=== PATIENT | female | born 1935 | race Caucasian/White ===

== ENCOUNTER → 2017-01-14 | Outpatient (CLI) | payer OTHER, BC ==
[~2017-01-14] MED LIST: ACET-1256 PO; ACYC-57 PO; ACYC5CRE4 TOP; AGG PO; ALBUAER INH; ASPEC81 PO; BNV150 PO; CARB25TA12 PO; CARB50TA3 PO; CHLO4TAB70 PO; CHLORPHENIRAMINE PO; CHOL1000 PO; CLEOCIN T 1%; CLIN1LOT5 TOP; CLRD24 PO; DOCU100C31 PO; DOXY100C76 PO; FAMO20TA11 PO; FAMO40TA6 PO; GABA1CAP5 PO; GLYC1SUP18 RE; HYDR0.2C10 TOP; MELATAB2 PO; METR0.75 TOP; MINO50TA PO; MOME0.1O TOP; MONT1TAB3 PO; MULT-506 PO; OMEP20TA PO; PHENSUP RE; PRMVC TOP; RANI300T2 PO; RETIN A MICRO TOP; SENN-91 PO; TRIA1SPR4 NAE; VITA400C15 PO; ZVRO EXT
[2017-01-14 09:46] LABS: BASO % 0.5 %; BASO ABS # 0.03 K/uL (0-0.2); COMPLETE YES; EOS % 3.1 %; HEMATOCRIT 42.3 % (37-47); LYMPH % 23.3 %; LYMPH ABS # 1.34 K/uL (1.2-3.4); MEAN CELL VOLUME 94.2 fL (80-100); MEAN CORPUSCULAR HEMOGLOBIN 31.8 pg (25-34); MEAN CORPUSCULAR HGB CONC 33.8 g/dl (32-36); NEUT % 66.1 %; PLATELET COUNT 248 K/uL (130-400); RED BLOOD COUNT 4.49 M/uL (4.2-5.4); WHITE BLOOD COUNT 5.75 K/uL (4.8-10.8)
[2017-01-14 09:52] LABS: ALT/SGPT 8 U/L (12-78); BLOOD UREA NITROGEN 13 mg/dl (7-18); BUN/CREATININE RATIO 15.6 (10-20); CALCIUM 8.7 mg/dl (8.5-10.1); CARBON DIOXIDE 30 mmol/L (21-32); CHLORIDE 108 mmol/L (98-107); CHOLESTEROL 217 mg/dl (0-200); CREATININE 0.81 mg/dl (0.60-1.20); GLUCOSE 94 mg/dl (70-99); POTASSIUM 4.2 mmol/L (3.5-5.1); SODIUM 143 mmol/L (136-145); TRIGLYCERIDES 94 mg/dl (0-150); URIC ACID 3.8 mg/dl (2.6-7.2); VERY LOW DENSITY LIPOPROT CALC 19 mg/dl
[2017-01-14 10:01] LABS: ALB/GLOB RATIO 1.1 (0.9-2); ALKALINE PHOSPHATASE 71 U/L (45-117); AST/SGOT 25 U/L (15-37); CHOLESTEROL/HDL RATIO 2.7; HDL CHOLESTEROL 81 mg/dl; LDL CHOLESTEROL CALCULATED 117 mg/dl
[2017-01-14 10:41] LABS: ESTIMATED AVERAGE GLUCOSE 114 mg/dl; HA1C FLAG Normal (Normal)
--- NOTE | 2017-01-19 08:44 | CODING QUERY MEDICAL NECESSITY ---
SUPPORTING DIAGNOSIS NEEDED A supporting diagnosis is required for the test/procedure performed on this patient in order for us to be reimbursed by the patient's insurance. Please provide a supporting diagnosis for the following test/procedure listed below next to the test name along with your signature. *If there is no additional diagnosis for this patient that would support the following test/procedure please document that below next to the test/procedure. Test(s)/Procedure(s) that require a supporting diagnosis: DOS 01/14 * Vitamin B12 DIAGNOSIS: * Hba1c DIAGNOSIS: * TSH DIAGNOSIS: * Lipids DIAGNOSIS: Provider Signature: Date: Thank you Deedee Vazquez Health Information Management Once completed, please kindly fax back to [phone] For questions please call [phone]
== END | disposition home or self-care (01) ==
LOC: C.LAB 08:17
PROVIDERS: ATTEND Family Medicine
DX: R53.82 Chronic fatigue, unspecified (principal); E11.9 Type 2 diabetes mellitus without complications

== ENCOUNTER → 2017-01-26 | Outpatient (CLI) | payer OTHER, BC ==
--- NOTE | 2017-01-26 10:14 | DIAGNOSTIC IMAGING REPORT ---
ULTRASOUND OF THE THYROID GLAND CLINICAL HISTORY: Multinodular goiter. COMPARISON STUDY: Thyroid ultrasound dated 09/26/2013. TECHNIQUE: Real-time, grayscale, and color flow sonography of the thyroid gland is performed utilizing a high-frequency linear transducer. Images are reviewed in the transverse and longitudinal planes. FINDINGS: Right lobe: The right lobe of the thyroid gland is normal in size and slightly heterogeneous in echotexture, measuring 4.7 x 1.9 x 1.5 cm. A subtly hyperechoic nodule in the posterior lower pole measures 0.6 x 0.6 x 0.5 cm (previously measured 0.6 x 0.4 x 0.4 cm). 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 Left lobe: The left lobe of the thyroid gland is normal in size and slightly heterogeneous in echotexture, measuring 4.8 x 2.0 x 1.9 cm. A complex solid and cystic nodule in the mid to lower pole measures 3.5 x 1.7 x 1.7 cm (previously documented as 2 adjacent nodules which measured 2.6 x 1.4 x 1.2 cm and 1.4 x 1.1 x 1.2 cm). Isthmus: The thyroid isthmus is normal in appearance and measures 0.3 cm in AP diameter. IMPRESSION: 1. The thyroid gland is normal in size and slightly heterogeneous in echotexture. 2. Bilateral thyroid nodules have not significantly changed as compared to 09/26/2013. See above. Electronically signed by: Jose Franklin M.D. 01/26/2017 10:12 AM Dictated Date/Time: 01/26/2017 10:09 AM
== END | disposition home or self-care (01) ==
LOC: C.ULTRBC 09:39
PROVIDERS: ATTEND Family Medicine
DX: E04.2 Nontoxic multinodular goiter (principal)

== ENCOUNTER → 2017-01-27 | Day surgery (SDC) | payer OTHER, BC ==
[2017-01-26 08:56] VITALS: BMI 19.0
[~2017-01-27] VITALS: Ht 154.9 cm; Wt 47.7 kg
[~2017-01-27] MED LIST changes: -ASPEC81 PO; -BNV150 PO; -CHLORPHENIRAMINE PO; -CLEOCIN T 1%; -CLRD24 PO; -DOXY100C76 PO; -FAMO20TA11 PO; -HYDR0.2C10 TOP; +LIDOCAINE HCL 2% 2 ML VIAL (20MG/ML) ONE; +MIDAZOLAM HCL 1 MG/ML 2ML VIAL ONE; +ONDANSETRON INJ 2 MG/ML 2 ML VIAL ONE; +PROPOFOL IV EMULSION 10 MG/ML 20 ML VIAL IV ONE; -RANI300T2 PO; -RETIN A MICRO TOP; +SODIUM CHLORIDE 0.9% 500ML 500 ML IV ONE; -VITA400C15 PO; -ZVRO EXT
[2017-01-27 10:04] VITALS: Ht 154.9 cm; Wt 47.7 kg
[2017-01-27 10:21] VITALS: TEMP 36.9
--- NOTE | 2017-01-27 10:29 | Endo History and Physical ---
History & Physical Date of Service: Jan 27, 2017. Chief Complaint: new onset of dysphagia, Hx GERD Referring Physician: Dr. Aguilar History of Present Illness 81 yo CF who presents for EGD secondary to GERD and dysphagia. Past Surgical History Hx Cardiac Surgery: No Hx Internal Defibrillator: No Hx Pacemaker: No Hx Abdominal Surgery: Yes (APPY, COLON TUMOR REMOVAL (BENIGN)) Hx of Implantable Prosthesis: No Hx Post-Op Nausea and Vomiting: No Hx Cancer Surgery: No Hx Thoracic Surgery: No Hx Orthopedic: No Hx Urinary Tract Surgery: No Family History None Social History Smoking Status: Never Smoker Hx Substance Use: No Hx Alcohol Use: No Allergies Coded Allergies: Propoxyphene (Verified Allergy, Severe, ITCHING,RASH,DYSPNEA, 01/26/17) Acetaminophen (Verified Allergy, Unknown, FACIAL SWELLING, PHOTOSENSITIVITY, 01/26/17) TYLENOL PLAIN OKAY - PROBLEMS ONLY WITH TYLENOL SINUS Adhesives (Verified Allergy, Unknown, ADHESIVE TAPE-DERMATITIS, 01/26/17) Bacitracin (Verified Allergy, Unknown, REDNESS, 01/26/17) Latex1 -Allergic Contact Dermititis (Verified Allergy, Unknown, BLISTER, ) Pseudoephedrine (Verified Allergy, Unknown, FACIAL SWELLING, PHOTOSENSITIVITY, 01/26/17) Current Medications Reported Home Medications Medications Dose Route/Sig Max Daily Dose Days Date Category Zovirax (Acyclovir Topical) 5 % Cre 1 Appln TOP QAM PRN 01/26/17 Reported Vitamin D3 (Cholecalciferol) 1,000 Unit Tab 1 Tab PO QAM 01/26/17 Reported Tylenol (Acetaminophen) 500 Mg Tab 500 Mg PO Q6H PRN 01/26/17 Reported Singulair (Montelukast Sodium) 10 Mg Tab 10 Mg PO QAM 01/26/17 Reported Senna S (Sennosides-Docusate Sodium) 1 Tab Tab 1 Tab PO QAM 01/26/17 Reported Proventil Hfa (Albuterol Sulfate) 108 Mcg/Act Aer 1 Puff INH Q4H PRN 01/26/17 Reported Preparation H (Phenylephrine-Shark Liver Oil-) 1 Sup Sup 1 Supp RE DAILY PRN 01/26/17 Reported Premarin (Estrogens, Conjugated) 14 Appln/30 Gm Cr 0.5 Appl TOP 2XWK 01/26/17 Reported Omeprazole 20 Mg Tab 1 Tab PO QAM 01/26/17 Reported Nasacort Allergy 24Hr (Triamcinolone Acetonide (Nasal) 55 Mcg/Act Spr 2 [place] YUDITH DAILY PRN 01/26/17 Reported Multivitamin (Multivitamins) Tab 1 Tab PO QAM 01/26/17 Reported Elocon (Mometasone Furoate) 0.1 % Oin 1 Appln TOP BID 01/26/17 Reported Minocycline Hcl 50 Mg Tab 1 Tab PO DAILY PRN 01/26/17 Reported Metronidazole (Metronidazole (Topical)) 0.75 % Lot 1 Dose TOP BID 01/26/17 Reported Melatonin Maximum Strengt (Melatonin) 5 Mg Tab 2 Tab PO HS 01/26/17 Reported Glycerin Infants & Childr (Glycerin (Laxative)) 1 Gm Sup 1 Supp RE QAM 01/26/17 Reported Neurontin (Gabapentin) 400 Mg Cap 1 Cap PO TID 01/26/17 Reported Pepcid (Famotidine) 40 Mg Tab 40 Mg PO QAM 01/26/17 Reported Docusate Sodium 100 Mg Cap 1 Cap PO BID 01/26/17 Reported Clindamycin Phosphate (Clindamycin Phosphate (Topical) 1 % Lot 1 Appln TOP BID 01/26/17 Reported Chlorpheniramine Maleate 4 Mg Tab 1 Tab PO DAILY PRN 01/26/17 Reported Sinemet Cr 50MG/200MG (Carbidopa/Levodopa) Tabcr 1 Tab PO HS 01/26/17 Reported Sinemet 25MG/100MG (Carbidopa/Levodopa) Tab 1.5 Tab PO QID 01/26/17 Reported Aggrenox 25-200 mg (Dipyridamole/Aspirin) 1 Cap Cap 1 Cap PO BID 01/26/17 Reported Zovirax (Acyclovir) 200 Mg Cap 200 Mg PO QAM 04/07/07 Reported Vital Signs Weight (Kilograms): 47.73 Height (Feet): 5 Height (Inches): 1 Date Time Temp Pulse Resp B/P Pulse Ox O2 Delivery O2 Flow Rate FiO2 01/27/17 10:21 36.9 60 20 119/59 98 Room Air Physical Exam General Appearance: WD/WN, no apparent distress Respiratory/Chest: Auscultation: breath sounds normal Cardiovascular: Heart Auscultation: RRR Abdomen: Bowel Sounds: normal Inspection & Palpation: soft, non-distended, no tenderness, guarding & rebound Assessment and Plan Assessment: 81 yo CF who presents for EGD secondary to GERD and dysphagia. Plan: Proceed with colonoscopy.
--- NOTE | 2017-01-27 10:58 | Discharge Instructions ---
Endoscopy Patient Instructions Date / Procedure(s) Performed Jan 27, 2017. EGD Allergy Information Coded Allergies: Propoxyphene (Verified Allergy, Severe, ITCHING,RASH,DYSPNEA, 01/26/17) Acetaminophen (Verified Allergy, Unknown, FACIAL SWELLING, PHOTOSENSITIVITY, 01/26/17) TYLENOL PLAIN OKAY - PROBLEMS ONLY WITH TYLENOL SINUS Adhesives (Verified Allergy, Unknown, ADHESIVE TAPE-DERMATITIS, 01/26/17) Bacitracin (Verified Allergy, Unknown, REDNESS, 01/26/17) Latex1 -Allergic Contact Dermititis (Verified Allergy, Unknown, BLISTER, ) Pseudoephedrine (Verified Allergy, Unknown, FACIAL SWELLING, PHOTOSENSITIVITY, 01/26/17) Discharge Date / Findings Jan 27, 2017. Hiatal hernia Medication Instructions OK to resume all medications today as prescribed Reported Home Medications Medications Dose Route/Sig Max Daily Dose Days Date Category Zovirax (Acyclovir Topical) 5 % Cre 1 Appln TOP QAM PRN 01/26/17 Reported Vitamin D3 (Cholecalciferol) 1,000 Unit Tab 1 Tab PO QAM 01/26/17 Reported Tylenol (Acetaminophen) 500 Mg Tab 500 Mg PO Q6H PRN 01/26/17 Reported Singulair (Montelukast Sodium) 10 Mg Tab 10 Mg PO QAM 01/26/17 Reported Senna S (Sennosides-Docusate Sodium) 1 Tab Tab 1 Tab PO QAM 01/26/17 Reported Proventil Hfa (Albuterol Sulfate) 108 Mcg/Act Aer 1 Puff INH Q4H PRN 01/26/17 Reported Preparation H (Phenylephrine-Shark Liver Oil-) 1 Sup Sup 1 Supp RE DAILY PRN 01/26/17 Reported Premarin (Estrogens, Conjugated) 14 Appln/30 Gm Cr 0.5 Appl TOP 2XWK 01/26/17 Reported Omeprazole 20 Mg Tab 1 Tab PO QAM 01/26/17 Reported Nasacort Allergy 24Hr (Triamcinolone Acetonide (Nasal) 55 Mcg/Act Spr 2 [place] YUDITH DAILY PRN 01/26/17 Reported Multivitamin (Multivitamins) Tab 1 Tab PO QAM 01/26/17 Reported Elocon (Mometasone Furoate) 0.1 % Oin 1 Appln TOP BID 01/26/17 Reported Minocycline Hcl 50 Mg Tab 1 Tab PO DAILY PRN 01/26/17 Reported Metronidazole (Metronidazole (Topical)) 0.75 % Lot 1 Dose TOP BID 01/26/17 Reported Melatonin Maximum Strengt (Melatonin) 5 Mg Tab 2 Tab PO HS 01/26/17 Reported Glycerin Infants & Childr (Glycerin (Laxative)) 1 Gm Sup 1 Supp RE QAM 01/26/17 Reported Neurontin (Gabapentin) 400 Mg Cap 1 Cap PO TID 01/26/17 Reported Pepcid (Famotidine) 40 Mg Tab 40 Mg PO QAM 01/26/17 Reported Docusate Sodium 100 Mg Cap 1 Cap PO BID 01/26/17 Reported Clindamycin Phosphate (Clindamycin Phosphate (Topical) 1 % Lot 1 Appln TOP BID 01/26/17 Reported Chlorpheniramine Maleate 4 Mg Tab 1 Tab PO DAILY PRN 01/26/17 Reported Sinemet Cr 50MG/200MG (Carbidopa/Levodopa) Tabcr 1 Tab PO HS 01/26/17 Reported Sinemet 25MG/100MG (Carbidopa/Levodopa) Tab 1.5 Tab PO QID 01/26/17 Reported Aggrenox 25-200 mg (Dipyridamole/Aspirin) 1 Cap Cap 1 Cap PO BID 01/26/17 Reported Zovirax (Acyclovir) 200 Mg Cap 200 Mg PO QAM 04/07/07 Reported Provider Instructions Activity Restrictions - No exercising or heavy lifting for 24 hours. - Do not drink alcohol the day of the procedure. - Do not drive a car or operate machinery until the day after the procedure. - Do not make any important decisions or sign important papers in 24 hours after the procedure. Following Day: - Return to full activity which may include returning to work/school. Diet Start your diet with liquids and light foods (jello, soup, juice, toast). Then eat your usual diet if not nauseated. Treatment For Common After Affects For mild abdominal pain, bloating, or excessive gas: - Rest - Eat lightly - Lie on right side Follow-Up Information Follow-up with Dr. Aguilar as scheduled Anesthesia Information What You Should Know You have had a procedure that required some medicine to reduce anxiety and discomfort. This treatment is called moderate sedation. After receiving the treatment, you may be sleepy, but you will be able to breathe on your own. The effects of the treatment may last for several hours. Follow these instructions along with Activity/Diet recommendations noted above: * Do NOT do anything where dizziness or clumsiness would be dangerous. * Rest quietly at home today, then you can be up and about tomorrow. * Have a responsible person stay with you the rest of today. * You may have had an I.V. today. If so, you may take the dressing off later today. Recommendations Call your doctor if: * Trouble breathing * Continuous vomiting for more than 24 hours * Temperature above 101 degrees * Severe abdominal pain or bloating * Pain not relieved by pain medicine ordered * There is increased drainage or redness from any incision * A large amount of rectal bleeding greater than 2-3 tablespoons. (If you had a polyp/s removed or have hemorrhoids, a small amount of blood - from the rectum is to be expected.) * You have any unanswered questions or concerns. IN THE EVENT OF A SERIOUS EMERGENCY, GO TO THE NEAREST EMERGENCY ROOM Your discharge instructions were prepared by provider Edward Isaac. Patient Instructions Signature Page Pauly Burnette Patient (or Guardian) Signature/Date: I have read and understand the instructions given to me by my caregivers. Caregiver/RN/Doctor Signature/Date: The above-named patient and/or guardian has received patient instructions on this date. + Original Patient Signature Page (only) stays with chart. Please make copy for patient.
--- NOTE | 2017-01-27 11:04 | GI REPORT ---
Procedure Date: 01/27/2017 10:34 AM Procedure: Upper GI endoscopy Indications: Dysphagia, Gastro-esophageal reflux disease Medicines: Monitored Anesthesia Care Complications: No immediate complications. Estimated Blood Loss: Estimated blood loss: none. Procedure: Pre-Anesthesia Assessment: - Prior to the procedure, a History and Physical was performed, and patient medications and allergies were reviewed. The patient's tolerance of previous anesthesia was also reviewed. The risks and benefits of the procedure and the sedation options and risks were discussed with the patient. All questions were answered, and informed consent was obtained. Prior Anticoagulants: The patient has taken no previous anticoagulant or antiplatelet agents. ASA Grade Assessment: III - A patient with severe systemic disease. After reviewing the risks and benefits, the patient was deemed in satisfactory condition to undergo the procedure. After obtaining informed consent, the endoscope was passed under direct vision. Throughout the procedure, the patient's blood pressure, pulse, and oxygen saturations were monitored continuously. The On-site loaner was introduced through the mouth, and advanced to the second part of duodenum. The upper GI endoscopy was accomplished without difficulty. The patient tolerated the procedure well. Findings: The esophagus was normal. A small hiatus hernia was present. The examined duodenum was normal. Impression: - Normal esophagus. - Small hiatus hernia. - Normal examined duodenum. - No specimens collected. Recommendation: - Resume previous diet. - Continue present medications. - Return to GI office as previously scheduled. Edward Isaac DO 01/27/2017 11:04:35 AM This report has been signed electronically. Note Initiated On: 01/27/2017 10:34 AM I attest to the content of the Intraoperative Record and orders documented therein, exceptions below
[2017-01-27 11:31] VITALS: BP 146/67; PULSE 64; O2SAT 99
--- NOTE | 2017-01-27 14:50 | Anesthesiology Progress Note ---
Anesthesia Post Op Note Date & Time Jan 27, 2017 at 14:49 Vital Signs Pain Intensity: 0 Vital Signs Past 12 Hours Date Time Temp Pulse Resp B/P Pulse Ox O2 Delivery O2 Flow Rate FiO2 01/27/17 11:31 64 20 146/67 99 Room Air 01/27/17 11:16 66 20 117/83 99 Room Air 01/27/17 11:01 65 20 127/61 99 Room Air 01/27/17 10:21 36.9 60 20 119/59 98 Room Air Notes Mental Status: alert / awake / arousable, participated in evaluation Pt Amnestic to Procedure: Yes Nausea / Vomiting: adequately controlled Pain: adequately controlled Airway Patency, RR, SpO2: stable & adequate BP & HR: stable & adequate Hydration State: stable & adequate Anesthetic Complications: no major complications apparent
== END | disposition home or self-care (01) ==
LOC: C.GI 09:40
PROVIDERS: ATTEND Internal Medicine
DX: R13.10 Dysphagia, unspecified (principal); K21.9 Gastro-esophageal reflux disease without esophagitis

== ENCOUNTER → 2017-05-13 | Outpatient (CLI) | payer OTHER, BC ==
[~2017-05-13] MED LIST changes: -ACYC-57 PO; +ACYC1CAP8 PO; -LIDOCAINE HCL 2% 2 ML VIAL (20MG/ML) ONE; -MIDAZOLAM HCL 1 MG/ML 2ML VIAL ONE; -ONDANSETRON INJ 2 MG/ML 2 ML VIAL ONE; -PROPOFOL IV EMULSION 10 MG/ML 20 ML VIAL IV ONE; -SODIUM CHLORIDE 0.9% 500ML 500 ML IV ONE
--- NOTE | 2017-05-13 13:50 | DIAGNOSTIC IMAGING REPORT ---
MODIFIED BARIUM SWALLOW CLINICAL HISTORY: DYSPHAGIA,PARKINSON COMPARISON STUDY: Modified barium swallow December 29, 2012. Fluoroscopy time: 2.6 minutes. FINDINGS: No definite aspiration was identified. There was equivocal trace tracheal aspiration with thin liquids. There was penetration with thin liquids. There was no aspiration with nectar thick liquids, pudding or crackers with paste. Decreased pharyngeal constriction and elevation was noted. There was moderate to marked esophageal dysmotility. IMPRESSION: 1. No definite tracheal aspiration. Equivocal trace tracheal aspiration with thin liquids. 2. Moderate to marked esophageal dysmotility. 3. Diminished pharyngeal constriction and elevation. 4. Full recommendations by speech pathology to follow. Electronically signed by: Miguel David M.D. 05/13/2017 1:49 PM Dictated Date/Time: 05/13/2017 1:46 PM
--- NOTE | 2017-05-13 14:45 | SWALLOWING EVALUATION ---
HISTORY: This 82 year-old woman, from home, was referred for a VFSS at [facility] secondary to complaints of feeling that something is stuck in her throat. She states that she coughs often with liquids and can not tolerate very hot or cold items. She also states that she feels as if she has pressure on her chest after meals as if a donkey is on her chest. Currently the patient's diet level is regular with thins. She reported some inconsistent information stating that she recently had a GI consult and was 100% normal but also reporting that she had an esophageal dilatation about 20 years ago. Pt. has a past medical history significant for EGD 01/27/17 = normal esophagus, hernia, normal examined duodenum, syncope, GERD, and schatzki's ring. PROCEDURE: The patient was seen in the Radiology Department of [facility] for the VFSS. Cursory examination of the oral cavity revealed adequate dentition. Movement of the articulators was WNL. The patient was seated on a standard chair and was viewed in both the Anterior-Posterior (A-P) and Lateral planes. Volitional phonation exercises completed in the A-P plane revealed bilateral vocal fold movement and vocal intensity within functional limits. In the lateral plane, the patient was given the following barium-infused boluses: 1 tsp thin barium with oral hold 1x, self presented single cup swallow-thin barium 1x, self presented serial cup swallow 1x, self presented single swallow with chin tuck 1x. 1 tsp nectar thick barium with oral hold 1x, self presented single cup swallow- nectar thick barium 1x, self presented serial cup swallows 1x. 1 tsp barium pudding-self presented 1x. Cracker with barium paste 1x. In the A-P view, pt was given 1 tsp barium pudding with esophageal scan. RESULTS: Oral Phase: Pt. had no labial escape of any food or liquid items presented. Pt. demonstrated a cohesive bolus between tongue and palatal seal. Timely and efficient chewing and mashing was observed with all consistencies as well as brisk tongue motion and complete oral clearance. Initiation of pharyngeal swallow began with bolus head in the pyriforms. Overall WFL for oral phase of swallow. Pharyngeal Phase: Soft Palate Elevation was complete for all boluses. Laryngeal elevation was decreased demonstrating partial superior movement of thyroid cartilage with partial approximation of arytenoids to epiglottic base. Anterior Hyoid excursion reduced. Complete epiglottic inversion was observed. Laryngeal Vestibular closure was incomplete and a thin column of air or barium noted in laryngeal vestibule. Tongue base retraction was noted with all consistencies and tongue base made effective contact with posterior pharyngeal wall throughout study. Mild pharyngeal residue was observed resulting in incomplete pharyngeal clearance of all tested items. Overall Mild pharyngeal stage dysphagia. Pt. had penetration of thins and NO witnessed aspiration throughout the study. Pt. completed compensatory strategy of chin tuck which increased airway protection. No coughing, throat clearing or s/s of aspiration were observed. Esophageal Phase: Opening and closing of the UES WFL. FAITH DOCTOR noted moderate-significant esophageal dysmotility with high retrograde motion. Some of the food items appeared to be resting just under the UES after the initial swallow. They then dropped down however reappeared quickly with a larger bolus of previously swallowed food items. SUMMARY/RECOMMENDATIONS: Overall pt. presents with mild pharyngeal stage dysphagia characterized by decreased laryngeal elevation and decreased pharyngeal constriction resulting in penetration of thins. No aspiration observed during this study. Moderate-Severe esophageal dysmotility noted. Recommendin. SLIPPERY regular diet with thin liquids. 2. GERD precautions a. Upright for all intake b. Remain upright for at least 20 min after all intake c. No intake 20 min before bed d. Keep head of bed elevated at least 40 degrees at all times-even sleep e. Alternate consistencies and attempt to follow diet suggestions 3. Follow up with GI regarding results of this study. Results and recommendations were discussed with the pt. at length and written material was provided. Thank you for referral of this patient. Please contact me at if any additional information is needed.
== END | disposition home or self-care (01) ==
LOC: C.RAD 12:34
PROVIDERS: ATTEND Family Medicine
DX: R13.10 Dysphagia, unspecified (principal)

== ENCOUNTER → 2017-06-16 | Outpatient (CLI) | payer OTHER, BC ==
--- NOTE | 2017-06-16 14:14 | MAMMOGRAPHY REPORT ---
BILATERAL DIGITAL SCREENING MAMMOGRAM WITH CAD: 06/16/2017 CLINICAL HISTORY: Routine screening. Patient has no complaints. TECHNIQUE: Bilateral CC and MLO views were obtained. Current study was also evaluated with a Comput er Aided Detection (CAD) system. COMPARISON: Comparison is made to exams dated: 06/15/2016 mammogram, 06/12/2015 mammogram, 06/11/2014 m ammogram, 06/08/2013 mammogram, 06/07/2012 mammogram, and 06/03/2011 mammogram - [facility] enter. BREAST COMPOSITION: The tissue of both breasts is extremely dense, which lowers the sensitivity of m ammography. FINDINGS: There are scattered benign rim calcifications in stable round and punctate microcalcificati ons most numerous in the anterior aspect of each breast. No new suspicious mass, architectural disto rtion or cluster of microcalcifications is seen. IMPRESSION: ACR BI-RADS CATEGORY 1: NEGATIVE There is no mammographic evidence of malignancy. A 1 year screening mammogram is recommended. The pa tient will receive written notification of the results. Approximately 10% of breast cancers are not detected with mammography. A negative mammographic report should not delay biopsy if a clinically suggestive mass is present. Danielle Peacock M.D. ay/:06/16/2017 13:08:38 Silicator: David Colunga M, [facility] letter sent: Normal 1/2 BI-RADS Code: ACR BI-RADS Category 1: Negative
== END | disposition home or self-care (01) ==
LOC: C.MAMM 12:41
PROVIDERS: ATTEND Family Medicine
DX: Z12.31 Encounter for screening mammogram for malignant neoplasm of breast (principal)

== ENCOUNTER 2017-10-10 08:57 | Emergency (ER) | payer OTHER, BC ==
[~2017-10-10] VITALS: Ht 154.9 cm; Wt 43.0 kg
[~2017-10-10 08:57] MED LIST changes: +ACYC-57 PO; -ACYC1CAP8 PO; +GABA-1220 PO; -GABA1CAP5 PO
[2017-10-10 08:59] VITALS: TEMP 36.3; Ht 154.9 cm; Wt 43.0 kg
[2017-10-10 09:09] VITALS: O2SAT 100
[2017-10-10] MEDS ORDERED: LIDOCAINE HCL 2% VISC SOLN 20 ML UDC PO STA (09:18)
[2017-10-10] MEDS ORDERED: ALUMINUM/MAGNESIUM SUSP 30 ML UDC PO STA ×2 (09:18→12:03)
[2017-10-10] MEDS ORDERED: RASA1TAB PO (09:24)
[2017-10-10] MEDS ORDERED: ZOLE5INJ INJ (09:24)
[2017-10-10] MEDS ORDERED: PRM625 PO (09:24)
--- NOTE | 2017-10-10 09:25 | EMERGENCY ROOM VISIT NOTE ---
History Report prepared by Gerri: Georgia Banuelos Under the Supervision of: Dr. Jose Felix M.D. First contact with patient: 09:10 Chief Complaint: SHORTNESS OF BREATH Stated Complaint: BURNING,ACID REFLUX Nursing Triage Summary: pt reports very bad acid reflux started at 0830 . has hx of acid reflux usually takes famotidine and omerprazole. worse than ever before. pain takes pt breath away History of Present Illness The patient is a 82 year old female who presents to the Emergency Room with complaints of burning in her esophagus beginning around 1 hour ago. The patient states that the burning also radiates to her chest. She reports a history of reflux, but states that it has never felt this bad. The patient rates her pain at an 8/10. She states that she only took her regular medications today. She also reports that it is hard to breath because of the burning. The patient denies back, shoulder, and jaw pain, and also denies sweating. She does report having slight nausea. The patient denies a history of heart attacks. Source of History: patient Onset: 1 hour ago Position: other (esophagus) Symptom Intensity: rated at an 8/10 Quality: burning Associated Symptoms: + SOB, + nausea, No diaphoresis, No back pain Review of Systems See HPI for pertinent positives & negatives. A total of 10 systems reviewed and were otherwise negative. Past Medical & Surgical Medical Problems: (1) Acid reflux Family History No pertinent family history Social History Smoking Status: Never Smoker Marital Status: Current/Historical Medications Scheduled Acyclovir (Zovirax), 400 MG PO QAM Carbidopa/Levodopa (Sinemet 25MG/100MG), 2 TAB PO QID Carbidopa/Levodopa (Sinemet Cr 50MG/200MG), 1 TAB PO HS Cholecalciferol (Vitamin D3), 1 TAB PO QAM Clindamycin Phosphate (Topical (Clindamycin Phosphate), 1 APPLN TOP BID Dipyridamole/Aspirin (Aggrenox 25-200 mg), 1 CAP PO BID Docusate Sodium (Docusate Sodium), 1 CAP PO BID Estrogens, Conjugated (Premarin), 0.625 MG PO 2XWK Famotidine (Pepcid), 40 MG PO QAM Gabapentin (Neurontin), 1 CAP PO TID Glycerin (Laxative) (Glycerin Infants & Childr), 1 SUPP RE QAM Melatonin (Melatonin Maximum Strengt), 2 TAB PO HS Metronidazole (Topical) (Metronidazole), 1 DOSE TOP BID Mometasone Furoate (Elocon), 1 APPLN TOP BID Montelukast Sodium (Singulair), 10 MG PO QAM Multivitamin (Multivitamin), 1 TAB PO QAM Omeprazole (Omeprazole), 1 TAB PO QAM Rasagiline Mesylate (Azilect), 0.5 MG PO DAILY Zoledronic Acid (Reclast), 5 MG INJ YEARLY Scheduled PRN Acetaminophen (Tylenol), 500 MG PO Q6H PRN for Pain Acyclovir Topical (Zovirax), 1 APPLN TOP QAM PRN for PRN Albuterol Sulfate (Proventil Hfa), 1 PUFF INH Q4H PRN for SOB/Wheezing Chlorpheniramine Maleate (Chlorpheniramine Maleate), 1 TAB PO DAILY PRN for ALLERGIC REACTION Minocycline Hcl (Minocycline Hcl), 1 TAB PO DAILY PRN for ACNE Phenylephrine-Shark Liver Oil- (Preparation H), 1 SUPP RE DAILY PRN for Constipation Allergies Coded Allergies: Propoxyphene (Verified Allergy, Severe, ITCHING,RASH,DYSPNEA, 10/10/17) Acetaminophen (Verified Allergy, Unknown, FACIAL SWELLING, PHOTOSENSITIVITY, 10/10/17) TYLENOL PLAIN OKAY - PROBLEMS ONLY WITH TYLENOL SINUS Adhesives (Verified Allergy, Unknown, ADHESIVE TAPE-DERMATITIS, 10/10/17) Bacitracin (Verified Allergy, Unknown, REDNESS, 10/10/17) Latex1 -Allergic Contact Dermititis (Verified Allergy, Unknown, BLISTER, 10/10/17) Pseudoephedrine (Verified Allergy, Unknown, FACIAL SWELLING, PHOTOSENSITIVITY, 10/10/17) Physical Exam Vital Signs Date Time Temp Pulse Resp B/P (MAP) Pulse Ox O2 Delivery O2 Flow Rate FiO2 10/10/17 12:14 62 16 96/60 96 Room Air 10/10/17 11:30 62 22 131/57 98 Room Air 10/10/17 11:00 65 20 137/56 98 Room Air 10/10/17 10:30 71 22 156/54 97 Room Air 10/10/17 09:30 63 20 134/57 98 Room Air 10/10/17 09:22 65 10/10/17 09:11 66 18 141/58 100 Room Air 10/10/17 09:09 100 Room Air 10/10/17 08:59 36.3 67 22 144/78 100 Room Air Physical Exam GENERAL: Patient is in no acute distress. HEENT: No acute trauma, normocephalic atraumatic, mucous membranes moist, no nasal congestion, no scleral icterus. NECK: No stridor, no adenopathy, no meningismus, trachea is midline. LUNGS: Clear to auscultation bilaterally, no wheeze, no rhonchi, breath sounds equal. HEART: Without murmurs gallops or rubs, regular rate and rhythm. ABDOMEN: Soft, mildly tender in epigastrium and right upper quadrant, bowel sounds positive, no hernias, no peritonitis. EXTREMITIES: No cyanosis or edema, full range of motion of all the joints without pain or difficulty, no signs for acute trauma. NEUROLOGIC: Oriented x 3, no acute motor or sensory deficits, no focal weakness. SKIN: No rash, no jaundice, no diaphoresis. Medical Decision & Procedures ER Provider Diagnostic Interpretation: Radiology results as stated below per my review and radiologist interpretation: BILIARY ULTRASOUND CLINICAL HISTORY: epigastric pain COMPARISON STUDY: November 18, 2009 FINDINGS: There is slight prominence of the right renal pelvis, but no evidence of calyceal dilatation. The common bile duct measures 5 mm. The gallbladder appears sonographically normal. The pancreas appears sonographically normal. The liver appears sonographically normal. IMPRESSION: Ultrasonographically normal liver, pancreas, and gallbladder. Electronically signed by: Alfie Luciano M.D. 10/10/2017 10:19 AM Dictated Date/Time: 10/10/2017 10:17 AM CHEST ONE VIEW PORTABLE CLINICAL HISTORY: Atypical chest pain COMPARISON STUDY: No previous studies for comparison. FINDINGS: The heart is the upper limits of normal in size. The patient is mildly hyperinflated. There is no failure. There is no focal pulmonary consolidation. There are no pleural effusions. There is minor left basilar atelectasis/scarring.[ IMPRESSION: No active disease in the chest. Electronically signed by: Alfie Luciano M.D. 10/10/2017 10:11 AM Dictated Date/Time: 10/10/2017 10:10 AM Laboratory Results 10/10/17 09:10 10/10/17 09:10 Test 10/10/17 09:10 10/10/17 11:12 Red Blood Count 4.75 M/uL (4.2-5.4) Mean Corpuscular Volume 94.7 fL (80-100) Mean Corpuscular Hemoglobin 32.0 pg (25-34) Mean Corpuscular Hemoglobin Concent 33.8 g/dl (32-36) RDW Standard Deviation 44.7 fL (36.4-46.3) RDW Coefficient of Variation 12.9 % (11.5-14.5) Mean Platelet Volume 11.0 fL (7.4-10.4) Prothrombin Time 10.8 SECONDS (9.0-12.0) Prothromb Time International Ratio 1.0 (0.9-1.1) Activated Partial Thromboplast Time 25.3 SECONDS (21.0-31.0) Partial Thromboplastin Ratio 1.0 Anion Gap 9.0 mmol/L (3-11) Est Creatinine Clear Calc Drug Dose 35.2 ml/min Estimated GFR () 74.5 Estimated GFR (Non- 64.3 BUN/Creatinine Ratio 24.6 (10-20) Calcium Level 8.6 mg/dl (8.5-10.1) Total Bilirubin 0.8 mg/dl (0.2-1) Aspartate Amino Transf (AST/SGOT) 34 U/L (15-37) Alanine Aminotransferase (ALT/SGPT) 11 U/L (12-78) Alkaline Phosphatase 76 U/L (45-117) Total Creatine Kinase 343 U/L (26-192) Creatine Kinase MB 6.4 ng/ml (0.5-3.6) Creatine Kinase MB Ratio 1.9 (0-3.0) Total Protein 6.9 gm/dl (6.4-8.2) Albumin 3.5 gm/dl (3.4-5.0) Globulin 3.4 gm/dl (2.5-4.0) Albumin/Globulin Ratio 1.0 (0.9-2) Lipase 176 U/L (73-393) Bedside Troponin I < 0.030 ng/ml (0-0.045) Laboratory results reviewed by me. Medications Administered Medications (Trade) Dose Ordered Sig/Ramona Route Start Time Stop Time Status Last Admin Dose Admin Lidocaine HCl (Viscous Lidocaine 2% Soln) 10 ml NOW STAT PO 10/10/17 09:18 12/24/17 09:20 DC 10/10/17 09:27 10 ML Al Hydroxide/Mg Hydroxide (Maalox Susp) 30 ml NOW STAT PO 10/10/17 09:18 10/10/17 09:20 DC 10/10/17 09:27 30 ML Ranitidine HCl (zANTac TAB) 150 mg NOW STAT PO 10/10/17 10:39 10/10/17 10:41 DC 10/10/17 10:39 150 MG Al Hydroxide/Mg Hydroxide (Maalox Susp) 30 ml NOW STAT PO 10/10/17 12:03 10/10/17 12:04 DC 10/10/17 12:14 30 ML ECG Indication: abdominal pain (epigastric pain) Rate (beats per minute): 62 Rhythm: normal sinus Findings: no acute ischemic change, no ectopy ED Course 15: The patient was evaluated in room B6. A complete history and physical exam was performed. 0918: Ordered Maalox Susp 30 ml PO, Lidocaine HCl 10 ml PO. 1039: Ordered Ranitidine HCl 150 mg PO. 1054: I updated the patient. She is still having some burning but does feel better. 1203: Ordered Maalox Susp 30 ml PO. 1205: Reevaluated the patient. Discussed results and discharge instructions: She verbalized understanding and agreement. I did offer the patient a hospitalist stay but she stated that she would rather go home. The patient is ready for discharge. Medical Decision The patient is a 82 year old female who presents to the ED with complaints of esophageal burning. Differential diagnoses considered include reflux, pancreatitis, biliary colic, angina, myocardial infarction, aortic dissection, and pneumonia. There is no leukocytosis or worrisome anemia. No significant electrolyte abnormality, kidney failure or hepatitis. No evidence for pancreatitis. EKG shows a normal sinus rhythm, no evidence for acute ischemia. Cardiac enzyme testing 2 does not suggest acute cardiac injury. Chest x-ray does not show pneumonia, mediastinal widening or pneumothorax. Gallbladder ultrasound does not show evidence for gallstones or acute cholecystitis. The patient presents with what she thought maybe heartburn. She was given a GI cocktail and oral Zantac. She had some relief with this. As she felt somewhat better, she asked for another dose of Maalox, this was given. The patient does not have any evidence for acute cardiac injury. She has no known cardiac disease. She has not had exertional chest pain or dyspnea lately. Her pain today feels like her reflux and has improved with reflux treatment. I did talk to the patient about a hospital stay, she feels she can go home and does not want to stay in the hospital. She has agreed to return for any worsening symptoms. She will add Maalox to her reflux regimen. Medication Reconcilliation Current Medication List: was personally reviewed by me Blood Pressure Screening Patient's blood pressure: Elevated blood pressure Blood pressure disposition: Elevated BP felt to be situational Impression Primary Impression: Precordial chest pain Scribe Attestation The scribe's documentation has been prepared under my direction and personally reviewed by me in its entirety. I confirm that the note above accurately reflects all work, treatment, procedures, and medical decision making performed by me. Departure Information Dispostion Home / Self-Care Referrals Arsen Aguilar M.D. (PCP) Forms HOME CARE DOCUMENTATION FORM, IMPORTANT VISIT INFORMATION Patient Instructions My [facility] Additional Instructions keep on your reflux meds add maalox 2 tablespoons before meals and as needed for reflux symptoms return the the ER for worsening pain or exertional pain as we discussed heart testing today was all ok
[2017-10-10 09:31] LABS: HEMOGLOBIN 15.2 g/dL (12.0-16.0); MEAN CELL VOLUME 94.7 fL (80-100); MEAN CORPUSCULAR HGB CONC 33.8 g/dl (32-36); PLATELET COUNT 253 K/uL (130-400); RED CELL DISTRIBUTION WIDTH CV 12.9 % (11.5-14.5); RED CELL DISTRIBUTION WIDTH SD 44.7 fL (36.4-46.3); WHITE BLOOD COUNT 6.47 K/uL (4.8-10.8)
[2017-10-10 09:40] LABS: PTT PATIENT 25.3 SECONDS (21.0-31.0)
[2017-10-10 09:41] LABS: ALBUMIN 3.5 gm/dl (3.4-5.0); CALCIUM 8.6 mg/dl (8.5-10.1); CREATININE 0.85 mg/dl (0.60-1.20)
[2017-10-10 09:46] LABS: CKMB 6.4 ng/ml (0.5-3.6); TOTAL PROTEIN 6.9 gm/dl (6.4-8.2)
--- NOTE | 2017-10-10 10:12 | DIAGNOSTIC IMAGING REPORT ---
CHEST ONE VIEW PORTABLE CLINICAL HISTORY: Atypical chest pain COMPARISON STUDY: No previous studies for comparison. FINDINGS: The heart is the upper limits of normal in size. The patient is mildly hyperinflated. There is no failure. There is no focal pulmonary consolidation. There are no pleural effusions. There is minor left basilar atelectasis/scarring.[ IMPRESSION: No active disease in the chest. Electronically signed by: Alfie Luciano M.D. 10/10/2017 10:11 AM Dictated Date/Time: 10/10/2017 10:10 AM
--- NOTE | 2017-10-10 10:20 | DIAGNOSTIC IMAGING REPORT ---
BILIARY ULTRASOUND CLINICAL HISTORY: epigastric pain COMPARISON STUDY: November 18, 2009 FINDINGS: There is slight prominence of the right renal pelvis, but no evidence of calyceal dilatation. The common bile duct measures 5 mm. The gallbladder appears sonographically normal. The pancreas appears sonographically normal. The liver appears sonographically normal. IMPRESSION: Ultrasonographically normal liver, pancreas, and gallbladder. Electronically signed by: Alfie Luciano M.D. 10/10/2017 10:19 AM Dictated Date/Time: 10/10/2017 10:17 AM
[2017-10-10] MEDS ORDERED: RANITIDINE HCL 150 MG TAB PO STA (10:39)
[2017-10-10 12:14] VITALS: BP 96/60; PULSE 62; O2SAT 96
[2018-03-30] MEDS ORDERED: DENO60SO IM (13:48)
== END 2017-10-10 12:20 | disposition home or self-care (01) ==
LOC: C.EDB 08:58
DX: R07.2 Precordial pain (principal); K21.9 Gastro-esophageal reflux disease without esophagitis; Z79.899 Other long term (current) drug therapy

== ENCOUNTER → 2017-12-14 | Outpatient (CLI) | payer OTHER, BC ==
[~2017-12-14] MED LIST changes: +PRM625 PO; -PRMVC TOP; +RASA1TAB PO; -SENN-91 PO; -TRIA1SPR4 NAE; +ZOLE5INJ INJ
[2017-12-14 12:17] LABS: BASO % 0.5 %; BASO ABS # 0.03 K/uL (0-0.2); EOS % 2.5 %; EOS ABS # 0.16 K/uL (0-0.5); HEMATOCRIT 44.1 % (37-47); HEMOGLOBIN 14.6 g/dL (12.0-16.0); IG# 0.01 K/uL (0.00-0.02); LYMPH % 23.3 %; MEAN CELL VOLUME 96.3 fL (80-100); MEAN CORPUSCULAR HEMOGLOBIN 31.9 pg (25-34); MEAN CORPUSCULAR HGB CONC 33.1 g/dl (32-36); MEAN PLATELET VOLUME 11.1 fL (7.4-10.4); MONO % 8.1 %; MONO ABS # 0.52 K/uL (0.11-0.59); NEUT % 65.4 %; NEUT ABS # 4.22 K/uL (1.4-6.5); PLATELET COUNT 258 K/uL (130-400); RED CELL DISTRIBUTION WIDTH CV 13.1 % (11.5-14.5); RED CELL DISTRIBUTION WIDTH SD 45.6 fL (36.4-46.3); WHITE BLOOD COUNT 6.44 K/uL (4.8-10.8)
[2017-12-14 12:28] LABS: ALBUMIN 3.8 gm/dl (3.4-5.0); ALT/SGPT 14 U/L (12-78); AST/SGOT 23 U/L (15-37); BLOOD UREA NITROGEN 11 mg/dl (7-18); CARBON DIOXIDE 31 mmol/L (21-32); CHOLESTEROL 212 mg/dl (0-200); CREATININE 0.74 mg/dl (0.60-1.20); GLUCOSE 84 mg/dl (70-99); POTASSIUM 4.2 mmol/L (3.5-5.1); SODIUM 140 mmol/L (136-145); URIC ACID 3.6 mg/dl (2.6-7.2)
[2017-12-14 12:36] LABS: ALKALINE PHOSPHATASE 68 U/L (45-117); LDL CHOLESTEROL CALCULATED 97 mg/dl; TOTAL PROTEIN 7.2 gm/dl (6.4-8.2); TRANSFERRIN 256 mg/dl (200-360)
[2017-12-14 13:28] LABS: HEMOGLOBIN A1C 5.4 % (4.5-5.6)
== END | disposition home or self-care (01) ==
LOC: C.LAB 10:26
PROVIDERS: ATTEND Family Medicine
DX: E88.81 Metabolic syndrome and other insulin resistance (principal); E55.9 Vitamin D deficiency, unspecified; D51.9 Vitamin B12 deficiency anemia, unspecified; E78.9 Disorder of lipoprotein metabolism, unspecified; R53.83 Other fatigue

== ENCOUNTER → 2017-12-27 | Outpatient (CLI) | payer OTHER, BC ==
--- NOTE | 2017-12-27 13:52 | DIAGNOSTIC IMAGING REPORT ---
ULTRASOUND OF THE CAROTID ARTERIES CLINICAL HISTORY: Dizziness. COMPARISON STUDY: MR angiogram of the neck dated 02/05/2012. Thyroid ultrasound dated 01/26/2017. TECHNIQUE: Real-time, grayscale, and color Doppler sonography of the carotid arteries is performed. Images are reviewed in the transverse and longitudinal planes. FINDINGS: Blood pressure in the right arm measures 120/60 and blood pressure in the left arm measures 11/10/1958. The carotid arteries are patent bilaterally and demonstrate antegrade flow. There is no significant atherosclerotic plaque identified. Normal doppler arterial waveforms are seen throughout. Velocity measurements are listed below. Common carotid peak systolic velocity (cm/sec): RIGHT: 115 LEFT: 105 ICA proximal peak systolic velocity (cm/sec): RIGHT: 98 LEFT: 79 ICA mid peak systolic velocity (cm/sec): RIGHT: 111 LEFT: 90 ICA distal peak systolic velocity (cm/sec): RIGHT: 123 LEFT: 94 ICA/CC peak systolic ratio: RIGHT: 1.0 LEFT: 0.9 Antegrade flow was shown in the vertebral arteries. The external carotid arteries are patent. A 3.4 cm nodule is incidentally noted in the left thyroid lobe, and is unchanged from previous. IMPRESSION: 1. There is no sonographic evidence of hemodynamically significant stenosis in the right or left carotid arterial system. 2. Antegrade flow is shown in the vertebral arteries. Electronically signed by: Jose Franklin M.D. 12/27/2017 1:51 PM Dictated Date/Time: 12/27/2017 1:49 PM
== END | disposition home or self-care (01) ==
LOC: C.ULTR 13:00
PROVIDERS: ATTEND Family Medicine
DX: I65.09 Occlusion and stenosis of unspecified vertebral artery (principal); R42 Dizziness and giddiness

== ENCOUNTER → 2018-02-14 | Outpatient (CLI) | payer OTHER, BC ==
--- NOTE | 2018-02-14 13:17 | DIAGNOSTIC IMAGING REPORT ---
R FOOT MIN 3 VIEWS ROUTINE, L FOOT MIN 3 VIEWS ROUTINE HISTORY: 82 years-old Female MID SOLE PAIN AND SWELLING acute right foot pain and swelling COMPARISON: None available TECHNIQUE: 2 views of the bilateral feet for a total 4 images FINDINGS: RIGHT: Moderate joint space narrowing with subchondral sclerosis and marginal spurring involves the first MTP joint with mild associated soft tissue prominence. The bones are mildly demineralized. There is mild cortical thickening involving the lateral diaphyseal portion of the fourth metacarpal which may reflect healed posttraumatic changes. Pes planus deformity with moderate enthesophyte of the plantar calcaneus. Peripheral vascular disease. No opaque foreign body. LEFT: Mild degenerative changes about the first MTP joint with associated soft tissue prominence. Bones are mildly demineralized. No acute fracture or dislocation. Mild pes planus deformity with peripheral vascular disease. IMPRESSION: 1. No acute fracture or dislocation. 2. Mildly demineralized appearance of the bones bilaterally with degenerative changes as above, most pronounced within the right first MTP joint. 3. Peripheral vascular disease. The above report was generated using voice recognition software. It may contain grammatical, syntax or spelling errors. Electronically signed by: Yury Fang M.D. 02/14/2018 1:15 PM Dictated Date/Time: 02/14/2018 1:05 PM
== END | disposition home or self-care (01) ==
LOC: C.RAD 12:09
PROVIDERS: ATTEND Family Medicine
DX: M79.671 Pain in right foot (principal); M79.672 Pain in left foot; M79.89 Other specified soft tissue disorders; I73.9 Peripheral vascular disease, unspecified

== ENCOUNTER → 2018-05-24 | Day surgery (SDC) | payer OTHER, BC ==
[2018-05-12 14:31] VITALS: Ht 154.9 cm; Wt 44.5 kg
[~2018-05-24] VITALS: Ht 154.9 cm; Wt 44.5 kg
[~2018-05-24] MED LIST changes: +500ML BSS 0.3ML EPI 1:1000PF IRRIG ONE; +ACETAMINOPHEN 325 MG TAB PO PRN; +AMVISC PLUS 0.8ML SYRINGE INT OCU ONE; +ATROPINE SULFATE 0.1 MG/ML 5ML SYR IV PRN; +BSS FLUSH ONE; +DENO60SO IM; +EpINEphrine INJ 1MG/ML AMP 1 MG/ML AMP ONE; +LACTATED RINGER'S 1000ML 500 ML IV SCH; +LIDOCAINE 3.5% OPH GEL PER APPLICATION CHARGE ONE; +LIDOCAINE HCL 1% MPF 2 ML VIAL ONE; +MIDAZOLAM HCL 1 MG/ML 2ML VIAL ONE; +ONDANSETRON INJ 2 MG/ML 2 ML VIAL IV PRN; +POVIDONE-IODINE OP SOLN 30 ML BTL ONE; +PROPARACAINE 0.5% OP SOLN PER DROP CHARGE OPL SCH; +TOBRAMYCIN/DEXAMETHASONE OPH OINT PER APPLN CHARGE ONE; -ZOLE5INJ INJ
[2018-05-24] MEDS: PHENYLEPHRINE HCL 2.5% OP SOLN PER DROP CHARGE OPL SCH ×2 (08:20→08:25)
[2018-05-24] MEDS: TROPICAMIDE 1% OP SOLN PER DROP CHARGE OPL SCH ×2 (08:21→08:26)
[2018-05-24] MEDS: CYCLOPENTOLATE HCL 1% OP SOLN PER DROP CHARGE OPL SCH ×2 (08:22→08:27)
[2018-05-24] MEDS: KETOROLAC 0.5% OP SOLN PER DROP CHARGE OPL SCH ×2 (08:23→08:28)
[2018-05-24] MEDS: GATIFLOXACIN OP SOLN PER DROP CHARGE OPL SCH ×2 (08:24→08:34)
--- NOTE | 2018-05-24 08:34 | History & Physical Bridge - SC ---
H&P Re-Evaluation Bridge Note: I have examined the patient, reviewed the History & Physical and in the interval since the performance of the History & Physical I have noted the following changes of clinical significance: Diagnosis: Left Cataract Procedure: Left Cataract Removal with Lens Implant No changes noted
--- NOTE | 2018-05-24 09:18 | Discharge Instructions-SurgCtr ---
Discharge Instructions Date of Service May 24, 2018. Visit Reason for Visit: Cataract Left Eye Discharge Discharge Diagnosis / Problem: cataract Discharge Goals Goal(s): Improve function Activity Recommendations Activity Limitations: per Instructions/Follow-up section Anesthesia . Post Anesthesia Instructions: If you have had General Anesthesia or IV Sedation: * Do not drive today. * Resume driving when surgeon permits. * Do not make important decisions or sign legal documents today. * Call surgeon for: 1. Temperature elevations greater than 101 degrees F. 2. Uncontrollable pain. 3. Excessive bleeding. 4. Persistent nausea and vomiting. 5. Medication intolerance (nausea, vomiting or rash). * For nausea and vomiting use only clear liquids such as: tea, soda, bouillon until nausea subsides, then gradually increase diet as tolerated. * If you have any concerns or questions, call your surgeon's office. If physician is unavailable and it is an emergency, call 911 or go to the nearest emergency room. . Diet Recommendations Home Diet: resume previous diet Procedures Procedures Performed: Left Cataract Phacoemulsification With Intraocular Lens Implant Pending Studies Studies pending at discharge: no Medical Emergencies . Who to Call and When: Medical Emergencies: If at any time you feel your situation is an emergency, please call 911 immediately. . Non-Emergent Contact Non-Emergency issues call your: [employer] . . "Provider Documentation" section prepared by Juan Echevarria. .
--- NOTE | 2018-05-24 09:18 | [facility] Operative Report ---
Operative Report Date of Service May 24, 2018. Operative Report 1. PREOPERATIVE DIAGNOSIS: Cataract of the left eye. 2. POSTOPERATIVE DIAGNOSIS: Same. 3. PROCEDURE: Phacoemulsification with intraocular lens implantation of the left eye. SURGEON: Dr. Juan Echevarria. ANESTHESIA: Topical Lidocaine gel, 1% Non- Preserved intracameral Lidocaine, and monitored intravenous sedation. INDICATIONS FOR THE PROCEDURE: The patient is a 83 - year-old female with a history of cataract of the left eye causing significant visual impairment. The details of the proposed procedure were explained to the patient who asked appropriate questions and following discussion of all risks, benefits and alternatives agreed to have the procedure done. 4. OPERATION AND FINDINGS: DESCRIPTION OF PROCEDURE: After informed consent was obtained, the patient was brought to the Operating Room at the [facility]. The patient was placed in a supine position and then the left eye was prepped and draped in the usual sterile fashion for intraocular surgery. A drop of topical Lidocaine gel was placed in the operative eye. A wire lid speculum was then placed in the fornices. A corneal paracentesis was then created temporally. The Non-Preserved Lidocaine was then instilled into the anterior chamber. The anterior chamber was then pressurized with viscoelastic. A 2.0 mm clear corneal incision was then created temporally. A cystotome was inserted into the anterior chamber and used to create a tear in the anterior lens capsule. This capsular tear was then used to create a small flap and the flap was dragged in a counterclockwise direction in order to create a continuous curvilinear capsulorrhexis. Hydrodissection was accomplished with balanced salt solution. Phacoemulsification of the lens nucleus was then performed in a standard [id number] technique. The phaco time was 22 seconds with an average power of 15 %. The remaining cortical material was removed using irrigation aspiration. The capsular bag was then filled with viscoelastic. A [employer]ch [employer] Lomb MI60L +21.5 diopters lens was then loaded into the injector and injected into the capsular bag. The remaining viscoelastic was removed with the irrigation aspiration handpiece. The wound was hydrated and then checked and found to be watertight. The intraocular pressure was checked and found to be adequate. The wire lid speculum was removed and the patient's face was cleaned and dried. TobraDex ointment was placed in the inferior fornix. The patient was discharged to the Recovery Room having tolerated the procedure well. There were no complications. The patient will be seen tomorrow in the office for follow-up. I attest to the content of the Intraoperative Record and any orders documented therein. Any exceptions are noted below.
[2018-05-24 09:23] VITALS: TEMP 36.5
[2018-05-24 09:46] VITALS: BP 124/63; PULSE 63; O2SAT 98
--- NOTE | 2018-05-24 09:53 | Anesthesia Progress Nt - [facility] ---
Anesthesia Post Op Note Date & Time May 24, 2018 at 09:53 Vital Signs Pain Intensity: 0 Vital Signs Past 12 Hours Date Time Temp Pulse Resp B/P (MAP) Pulse Ox O2 Delivery O2 Flow Rate FiO2 05/24/18 09:46 63 18 124/63 (83) 98 Room Air 05/24/18 09:23 36.5 66 18 114/64 (81) 98 Room Air 05/24/18 08:11 36.4 63 20 129/78 (95) 97 Room Air Notes Mental Status: alert / awake / arousable, participated in evaluation Pt Amnestic to Procedure: Yes Nausea / Vomiting: adequately controlled Pain: adequately controlled Airway Patency, RR, SpO2: stable & adequate BP & HR: stable & adequate Hydration State: stable & adequate Anesthetic Complications: no major complications apparent
== END | disposition home or self-care (01) ==
LOC: X.SURG 07:43
PROVIDERS: ATTEND Ophthalmology
DX: H26.9 Unspecified cataract (principal); J45.909 Unspecified asthma, uncomplicated; Z86.73 Personal history of transient ischemic attack (TIA), and cerebral infarction without residual deficits; G20 Parkinson's disease; Z98.41 Cataract extraction status, right eye; Z79.899 Other long term (current) drug therapy

== ENCOUNTER 2019-06-23 20:15 | Inpatient (IN) ==
[2019-06-23] MEDS ORDERED: SODIUM CHLORIDE 0.9% 1000ML 1,000 ML IV SCH (20:45)
--- NOTE | 2019-06-23 21:13 | XRay Report ---
SINGLE VIEW CHEST CLINICAL HISTORY: Generalized weakness. FINDINGS: An AP, portable, upright chest radiograph is compared to study dated 10/10/2017. The examin ation is degraded by portable technique and patient rotation. The cardiomediastinal silhouette is u nremarkable. The lungs and pleural spaces are clear. No pneumothorax is seen. The skeletal structures are osteopenic. The bony thorax is grossly intact. IMPRESSION: No active disease in the chest. Electronically signed by: Jose Franklin M.D. 06/23/2019 9:11 PM
[2019-06-23 21:19] LABS: INR 1.1 (0.9-1.1)
[2019-06-23 21:26] LABS: Albumin Level 3.2 gm/dl (3.4-5.0); Calcium 8.1 mg/dl (8.5-10.1); Creatinine Clr Calc Pharmacy 13.5 ml/min; Est GFR (African American) 22.4; Est GFR (Non-African American) 19.3; Magnesium 3.3 mg/dl (1.8-2.4); Potassium 3.4 mmol/L (3.5-5.1)
[2019-06-23 21:41] LABS: Hematocrit (blood only) 41.5 % (37-47); Hemoglobin 14.8 g/dL (12.0-16.0); Mean Corpuscular Hgb Conc 35.7 g/dL (32-36); Mean Corpuscular Volume 88.7 fL (80-100); RDW Coefficient of Variation 14.3 % (11.5-14.5); RDW Standard Deviation 46.6 fL (36.4-46.3); Red Blood Count 4.68 M/uL (4.2-5.4); White Blood Count 2.23 K/uL (4.8-10.8)
[2019-06-23 21:43] LABS: Albumin Globulin Ratio 0.9 (0.9-2); Bilirubin,Total 0.8 mg/dl (0.2-1); Globulin 3.7 gm/dl (2.5-4.0); Total Protein 6.9 gm/dl (6.4-8.2); Troponin I 0.047 ng/ml (0-0.045)
[2019-06-23 21:52] LABS: Platelet Count 43 K/uL (130-400)
[2019-06-23] MEDS ORDERED: CEFEPIME 2,000 MG/20 ML VIAL IV STA (21:52)
[2019-06-23 21:53] LABS: Basophils # (auto) 0.01 K/uL (0-0.2); Basophils % (auto) 0.4 %; Echinocytes 1+; Eosinophils # (auto) 0.01 K/uL (0-0.5); Eosinophils % (auto) 0.4 %; Immature Granulocytes # (auto) 0.02 K/uL (0.00-0.02); Immature Granulocytes % (auto) 0.9 %; Lymphocytes # (auto) 0.28 K/uL (1.2-3.4); Lymphocytes % (auto) 12.6 %; Monocytes # (auto) 0.08 K/uL (0.11-0.59); Monocytes % (auto) 3.6 %; Neutrophils # (auto) 1.83 K/uL (1.4-6.5); Neutrophils % (auto) 82.1 %; Platelet Estimate Decreased (Normal); Tear Drop Cells 1+
[2019-06-23] MEDS ORDERED: SODIUM CHLORIDE 0.9% 1000ML 1,000 ML IV ONE (22:02)
[2019-06-23 22:48] LABS: Appearance Urine Cloudy (Clear); Bacteria Urine Automated Negative (Negative); Bilirubin Urine Negative (Negative); Blood Urine 1+ (Negative); Color Urine Yellow; Epithelial Cell Urine Auto >30 /lpf (0-5); Glucose Urine UA Negative (Negative); Ketones Urine Negative (Negative); Leukocyte Esterase Urine Negative (Negative); Nitrite Urine Negative (Negative); Protein Urine 1+ (Negative); RBC Urine Automated 0-4 /hpf (0-4); Specific Gravity Urine 1.022 (1.000-1.030); Urobilinogen Urine Negative (Negative)
--- NOTE | 2019-06-23 23:30 | Ultrasound Report ---
ULTRASOUND BILATERAL LOWER EXTREMITY VENOUS CLINICAL HISTORY: Leg pain. COMPARISON STUDY: No priors. TECHNIQUE: Real-time, grayscale, and color Doppler sonography of the deep veins of the right and left lower extremity was performed from the inguinal crease to the calf. Compression and augmentation wer e utilized. FINDINGS: There is no sonographic evidence of deep venous thrombosis identified in the right or left lower extremity. The common femoral, superficial femoral, and popliteal veins are patent and normally compressible bilaterally. The greater saphenous vein and the profunda femoris vein at the junction w ith the common femoral vein are clear in both legs. The visualized calf veins are patent bilaterally. IMPRESSION: There is no sonographic evidence of deep venous thrombosis identified in the right or lef t lower extremity. Electronically signed by: Jose Franklin M.D. 06/23/2019 11:29 PM
--- NOTE | 2019-06-24 00:32 | History & Physical Report ---
Date of Service June 24, 2019 Assessment & Plan (1) Anaplasmosis: Ms. Burnette is a pleasant 84yo male with a PMHx of Parkinson's who presents with the complaint of generalized weakness and fatigue for the last week that resulted in a fall. Anaplasmosis/Erhlichiosis/tick borne illness -Pt presents with Hx of extensive gardening recently, possible insect bite on left thigh -Afebrile, hypotensive. Labs show a leukopenia, thrombocytopenia, hyponatremia, increased AST -will order peripheral smear -will order antibody panels for anaplasma, Lyme, erlichiosis. -will start on doxycycline IV 100mg BID -will give one dose of Rocephin 2g for INSPECTOR WREATH penetration -will trend labs with daily CMP, CBC -will continue to monitor CHARLIE -Pt with an elevated Cr of 2.27 -Baseline of normal range in October 2018. -likely pre-renal given pt's hypotension; inability to eat/drink -will treat with NSS@80 -continue to monitor Hx of Parkinsons -cont home meds including gabapentin Hx of constipation -cont home meds Hx of Asthma/Allergies -cont home albuterol as needed, montelukast Hx of Acne continue home meds as needed Health maintenance -continue home meds FEN/GI: regular diet, nss@80 DVT Prophylaxis: SCDs Dispo: Med/Surg with tele History of Present Illness Primary Care Provider: Arsen Aguilar MD Ms. Burnette is a pleasant 84yo male with a PMHx of Parkinson's who presents with the complaint of generalized weakness and fatigue for the last week that resulted in a fall. at bedside and also contributes to the history. States that she has been avidly gardening this summer, from around 10AM to everyday. She states that about 10 days ago she noticed a lesion on her left thigh and took off what she believed was a tick; did not notice any legs on it however. States that since that time she has gotten progressively weaker, with the inability to perform her ADLs. She gets chills, but denies fevers or night sweats. States her appetite is currently nonexistent. Has a standard runny nose. Has had some SOB but denies chest pain or palps. PMHx: Parkinson's, Asthma, Acne, Shingles PSH: Cataracts, dental surgery, tonsillectomy, appendectomy, colon resection for tubulovillous adenoma. Allergies: As listed SH: Never smoker, no alcohol use, no rec drug use. 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 Lives at home with equally pleasant Mannie. ED Course: Workup of fall including lower extremity dopplers, chest xray Allergies Allergy/AdvReac Type Severity Reaction Status Date / Time propoxyphene Allergy Severe ITCHING,LLOYD Verified 06/24/19 00:01 H,DYSPNEA adhesive Allergy Intermediate ADHESIVE Verified 06/24/19 00:01 TAPE-DERMATITIS pseudoephedrine Allergy Intermediate FACIAL Verified 06/24/19 00:01 SWELLING, PHOTOSENSITIVITY bacitracin Allergy Mild REDNESS Verified 06/24/19 00:01 latex Allergy Mild BLISTER Verified 06/24/19 00:01 Home Medications Home Medications Medication Instructions Recorded Confirmed Type acetaminophen 500 mg tablet 500 mg PO DIRECTED PRN tab 06/14/19 06/24/19 History acyclovir 200 mg capsule 200 mg PO QAM cap 06/14/19 06/24/19 History albuterol sulfate HFA 90 1 - 2 puff INHALATION DIRECTED 06/14/19 06/24/19 History mcg/actuation aerosol inhaler PRN gm aspirin 25 mg-dipyridamole 200 mg 1 cap PO BID cap 06/14/19 06/24/19 History capsule,ext.release 12 hr multiphase carbidopa 25 mg-levodopa 100 mg 2 tab PO QID #240 tab 06/14/19 06/24/19 History tablet carbidopa ER 50 mg-levodopa 200 mg 1 tab PO HS #30 tab 06/14/19 06/24/19 History tablet,extended release chlorpheniramine 4 mg tablet 4 mg PO DAILY PRN tab 06/14/19 06/24/19 History clindamycin phosphate 1 % topical 1 applic TOPICAL BID #1 ml 06/14/19 06/24/19 History solution coenzyme Q10 200 mg capsule 200 mg PO QAM cap 06/14/19 06/24/19 History conjugated estrogens 0.625 mg/gram 1 applic PV 2XWK #1 gm 06/14/19 06/24/19 History vaginal cream denosumab 60 mg/mL subcutaneous 60 mg SUBCUT .Q 6 MONTHS ml 06/14/19 06/24/19 History syringe docusate sodium 100 mg tablet 100 mg PO BID PRN tab 06/14/19 06/24/19 History famotidine 40 mg tablet 40 mg PO QAM tab 06/14/19 06/24/19 History gabapentin 400 mg capsule 400 mg PO TID 30 Days #90 cap 06/14/19 06/24/19 Rx glycerin (child) 1 supp NE DAILY PRN 06/14/19 06/24/19 History melatonin 5 mg tablet 15 mg PO HS tab 06/14/19 06/24/19 History metronidazole 0.75 % topical gel 1 applic TOPICAL BID #1 gm 06/14/19 06/24/19 History minocycline 50 mg capsule 50 mg PO DAILY PRN #30 cap 06/14/19 06/24/19 History mometasone 0.1 % topical cream 1 applic TOPICAL DIRECTED PRN 06/14/19 06/24/19 History #1 gm montelukast 10 mg tablet 10 mg PO QAM tab 06/14/19 06/24/19 History multivitamin,tf-rsru-peesxlhx 1 tab PO DAILY 06/14/19 06/24/19 History tablet omeprazole 20 mg capsule,delayed 20 mg PO QPM #30 cap 06/14/19 06/24/19 History release rasagiline 0.5 mg tablet 0.5 mg PO DAILY #30 tab 06/14/19 06/24/19 History sennosides 8.6 mg-docusate sodium 3 tab PO QAM tab 06/14/19 06/24/19 History 50 mg tablet L. gasseri-B. bifidum-B longum 1 cap PO .2 HRS POST NYSTATIN 06/24/19 06/24/19 History [[facility]] Mg L-Theronate 450 mg PO HS 06/24/19 06/24/19 History S-Jxhgng-F-Cysteine 600 mg PO BID 06/24/19 06/24/19 History Reishi 376 mg PO BID 06/24/19 06/24/19 History acyclovir 1 applic TOPICAL DIRECTED PRN 06/24/19 06/24/19 History aspirin-sod bicarb-citric acid 1 ea PO DIRECTED PRN 06/24/19 06/24/19 History [Zuleima-Kinards Extra Strength] cholecalciferol (vitamin D3) 2,000 unit PO DAILY 06/24/19 06/24/19 History [Vitamin D3] cholecalciferol (vitamin D3) 5,000 unit PO DAILY 06/24/19 06/24/19 History [Vitamin D3] glutamine (bulk) [L-Glutamine] 1 ea MISCELLANEOUS QPM 06/24/19 06/24/19 History lidocaine HCl 1 applic TOPICAL BID PRN 06/24/19 06/24/19 History nystatin 500,000 unit PO BID 06/24/19 06/24/19 History oregano oil 1,500 mg PO QAM 06/24/19 06/24/19 History phenyleph-min oil-petrolatum 1 applic NE DIRECTED PRN 06/24/19 06/24/19 History [Preparation H] pramoxine [Sarna Sensitive] 1 applic TOPICAL BID PRN 06/24/19 06/24/19 History simethicone 80 mg PO DIRECTED PRN 06/24/19 06/24/19 History Past Med/Surg History Medical History Acid reflux (Chronic) Social History Preferred Language: Iranian Communication Ability: Effective Chemist Physical Required: No Beliefs That Will Affect Care: None Current Living Situation: Spouse Feels Safe at Home: Yes Safety Concerns: Feels Safe At This Time Smoking Status: Never smoker Hx Alcohol Use: No Hx Substance Use: No Review of Systems Constitutional: + chills, + sweats, + fatigue, + weakness and + anorexia; no fever Eyes: no worsening vision Ear, Nose, Mouth, Throat: + nasal congestion; no ear pain and no sore throat Respiratory: + dyspnea; no cough Cardiovascular: no chest pain, no radiating jaw, neck or arm pain, no palpitations, no lightheadedness, no syncope and no edema Gastrointestinal: + constipation; no nausea, no vomiting and no diarrhea/loose stools Genitourinary: no dysuria Musculoskeletal: + muscle weakness and + body aches Integumentary: + new lesions Neurologic: + unsteadiness and + falls; no tingling, no numbness, no syncope, no headache(s) and no confusion Physical Exam Constitutional: + thin (covered in blankets) Eyes: PERRL, conjunctivae normal, anicteric sclerae ENMT: external ear and nose normal, oropharynx normal Neck: normal visual inspection Respiratory: normal respiratory effort, lungs clear to auscultation Cardiovascular: RRR, no murmur, no edema Gastrointestinal (Abdomen): normal bowel sounds, soft, nontender, no hepatosplenomegaly Percussion/Palpation: no guarding Musculoskeletal: Extremities: extremities normal to inspection Skin: + rash (on right thigh, small erythematous pala with dark spot in middle) Neurologic: PERRL, EOMI, accommodation nl, no face palsy, no dysarthria (though she takes some time to get words out) Results & Data Vital Signs (Past 12 Hours) Vital Signs Temp Pulse Pulse Resp BP BP Pulse Ox 06/23/19 22:31 80 22 103/51 L 99 06/23/19 22:16 84 18 103/51 L 99 06/23/19 20:17 36.7 C 92 H 20 75/37 L 96 Laboratory Results Laboratory Results - last 24 hr 06/23/19 06/23/19 06/23/19 20:57 20:57 20:57 WBC 2.23 L RBC 4.68 Hgb 14.8 Hct 41.5 MCV 88.7 MCH 31.6 MCHC 35.7 RDW Std Deviation 46.6 H RDW Coeff of Susan 14.3 Plt Count 43 L MPV Immature Gran % (Auto) 0.9 Neut % (Auto) 82.1 Lymph % (Auto) 12.6 [place]mort[place] % (Auto) 3.6 Eos % (Auto) 0.4 Baso % (Auto) 0.4 Immature Gran # (Auto) 0.02 Neut # (Auto) 1.83 Lymph # (Auto) 0.28 L [place]mort[place] # (Auto) 0.08 L Eos # (Auto) 0.01 Baso # (Auto) 0.01 Platelet Estimate Decreased L Tear Drop Cells 1+ Echinocytes 1+ Peripher Smr Path Cons PT 11.0 INR 1.1 Sodium 132 L Potassium 3.4 L Chloride 100 Carbon Dioxide 20 L Anion Gap 12.0 H BUN 82 H Creatinine 2.27 H Est Cr Clr Drug Dosing 13.5 Est GFR ( Amer) 22.4 Est GFR (Non-Af Amer) 19.3 BUN/Creatinine Ratio 36.0 H Glucose 120 H Lactate Calcium 8.1 L Magnesium 3.3 H Total Bilirubin 0.8 AST 260 H ALT 17 Alkaline Phosphatase 56 Troponin I 0.047 H* Total Protein 6.9 Albumin 3.2 L Globulin 3.7 Albumin/Globulin Ratio 0.9 TSH 1.170 Urine Color Urine Appearance Urine pH Ur Specific Hershey Urine Protein Urine Glucose (UA) Urine Ketones Urine Blood Urine Nitrite Urine Bilirubin Urine Urobilinogen Ur Leukocyte Esterase Urine WBC (Auto) Urine RBC (Auto) U Hyaline Cast (Auto) U Epithel Cells (Auto) Urine Bacteria (Auto) Granular Casts RBC Casts Urine Yeast A. phagocytophilum DNA Lyme Disease IgG Ab Lyme Disease IgM Ab E. chaffeensis IgG Ab E. chaffeensis IgM Ab E.chaffeensis DNA (PCR) E. chaffeensis Interp E. chaffeensis Comment 06/23/19 06/23/19 06/23/19 20:57 20:57 20:57 WBC RBC Hgb Hct MCV MCH MCHC RDW Std Deviation RDW Coeff of Susan Plt Count MPV Immature Gran % (Auto) Neut % (Auto) Lymph % (Auto) [place] % (Auto) Eos % (Auto) Baso % (Auto) Immature Gran # (Auto) Neut # (Auto) Lymph # (Auto) [place]mort[place] # (Auto) Eos # (Auto) Baso # (Auto) Platelet Estimate Tear Drop Cells Echinocytes Peripher Smr Path Cons PT INR Sodium Potassium Chloride Carbon Dioxide Anion Gap BUN Creatinine Est Cr Clr Drug Dosing Est GFR ( Amer) Est GFR (Non-Af Amer) BUN/Creatinine Ratio Glucose Lactate 1.7 Calcium Magnesium Total Bilirubin AST ALT Alkaline Phosphatase Troponin I Total Protein Albumin Globulin Albumin/Globulin Ratio TSH Urine Color Urine Appearance Urine pH Ur Specific Hershey Urine Protein Urine Glucose (UA) Urine Ketones Urine Blood Urine Nitrite Urine Bilirubin Urine Urobilinogen Ur Leukocyte Esterase Urine WBC (Auto) Urine RBC (Auto) U Hyaline Cast (Auto) U Epithel Cells (Auto) Urine Bacteria (Auto) Granular Casts RBC Casts Urine Yeast A. phagocytophilum DNA Lyme Disease IgG Ab Negative Lyme Disease IgM Ab Negative E. chaffeensis IgG Ab Pending E. chaffeensis IgM Ab Pending E.chaffeensis DNA (PCR) E. chaffeensis Interp Pending E. chaffeensis Comment Pending 06/23/19 06/24/19 06/24/19 Unknown 03:05 03:05 WBC 1.68 L RBC 3.70 L Hgb 11.4 L D Hct 32.6 L MCV 88.1 MCH 30.8 MCHC 35.0 RDW Std Deviation 46.0 RDW Coeff of Susan 14.1 Plt Count 33 L MPV 11.7 H Immature Gran % (Auto) Neut % (Auto) Lymph % (Auto) Th[place]morton % (Auto) Eos % (Auto) Baso % (Auto) Immature Gran # (Auto) Neut # (Auto) Lymph # (Auto) [place]mort[place] # (Auto) Eos # (Auto) Baso # (Auto) Platelet Estimate Tear Drop Cells Echinocytes Peripher Smr Path Cons Pending PT INR Sodium Potassium Chloride Carbon Dioxide Anion Gap BUN Creatinine Est Cr Clr Drug Dosing Est GFR ( Amer) Est GFR (Non-Af Amer) BUN/Creatinine Ratio Glucose Lactate Calcium Magnesium Total Bilirubin AST ALT Alkaline Phosphatase Troponin I Total Protein Albumin Globulin Albumin/Globulin Ratio TSH Urine Color Yellow Urine Appearance Cloudy A Urine pH 5.0 Ur Specific Hershey 1.022 Urine Protein 1+ H Urine Glucose (UA) Negative Urine Ketones Negative Urine Blood 1+ H Urine Nitrite Negative Urine Bilirubin Negative Urine Urobilinogen Negative Ur Leukocyte Esterase Negative Urine WBC (Auto) 1-5 Urine RBC (Auto) 0-4 U Hyaline Cast (Auto) 10-30 H U Epithel Cells (Auto) >30 H Urine Bacteria (Auto) Negative Granular Casts 5-10 H RBC Casts 1-5 H Urine Yeast Not Reportable A. phagocytophilum DNA Pending Lyme Disease IgG Ab Lyme Disease IgM Ab E. chaffeensis IgG Ab E. chaffeensis IgM Ab E.chaffeensis DNA (PCR) Pending E. chaffeensis Interp E. chaffeensis Comment 06/24/19 03:05 WBC RBC Hgb Hct MCV MCH MCHC RDW Std Deviation RDW Coeff of Susan Plt Count MPV Immature Gran % (Auto) Neut % (Auto) Lymph % (Auto) Th[place]mort[place] % (Auto) Eos % (Auto) Baso % (Auto) Immature Gran # (Auto) Neut # (Auto) Lymph # (Auto) [place]morton # (Auto) Eos # (Auto) Baso # (Auto) Platelet Estimate Tear Drop Cells Echinocytes Peripher Smr Path Cons PT INR Sodium 137 Potassium 3.1 L Chloride 112 H Carbon Dioxide 15 L Anion Gap 10.0 BUN 69 H Creatinine 1.42 H D Est Cr Clr Drug Dosing 21.5 Est GFR ( Amer) 39.5 Est GFR (Non-Af Amer) 34.1 BUN/Creatinine Ratio 48.5 H Glucose 105 H Lactate Calcium 6.7 L D Magnesium Total Bilirubin 0.7 AST 191 H ALT 14 Alkaline Phosphatase 37 L Troponin I Total Protein 5.2 L D Albumin 2.4 L Globulin 2.8 Albumin/Globulin Ratio 0.9 TSH Urine Color Urine Appearance Urine pH Ur Specific Hershey Urine Protein Urine Glucose (UA) Urine Ketones Urine Blood Urine Nitrite Urine Bilirubin Urine Urobilinogen Ur Leukocyte Esterase Urine WBC (Auto) Urine RBC (Auto) U Hyaline Cast (Auto) U Epithel Cells (Auto) Urine Bacteria (Auto) Granular Casts RBC Casts Urine Yeast A. phagocytophilum DNA Lyme Disease IgG Ab Lyme Disease IgM Ab E. chaffeensis IgG Ab E. chaffeensis IgM Ab E.chaffeensis DNA (PCR) E. chaffeensis Interp E. chaffeensis Comment Medications Administered Home Medications acetaminophen 500 mg tablet 500 mg PO DIRECTED PRN tab 06/14/19 [History Confirmed 06/24/19] acyclovir 200 mg capsule 200 mg PO QAM cap 06/14/19 [History Confirmed 06/24/19] albuterol sulfate HFA 90 mcg/actuation aerosol inhaler 1 - 2 puff INHALATION DIRECTED PRN gm 06/14/19 [History Confirmed 06/24/19] aspirin 25 mg-dipyridamole 200 mg capsule,ext.release 12 hr multiphase 1 cap PO BID cap 06/14/19 [History Confirmed 06/24/19] carbidopa 25 mg-levodopa 100 mg tablet 2 tab PO QID #240 tab 06/14/19 [History Confirmed 06/24/19] carbidopa ER 50 mg-levodopa 200 mg tablet,extended release 1 tab PO HS #30 tab 06/14/19 [History Confirmed 06/24/19] chlorpheniramine 4 mg tablet 4 mg PO DAILY PRN tab 06/14/19 [History Confirmed 06/24/19] clindamycin phosphate 1 % topical solution 1 applic TOPICAL BID #1 ml 06/14/19 [History Confirmed 06/24/19] coenzyme Q10 200 mg capsule 200 mg PO QAM cap 06/14/19 [History Confirmed 06/24/19] conjugated estrogens 0.625 mg/gram vaginal cream 1 applic PV 2XWK #1 gm 06/14/19 [History Confirmed 06/24/19] denosumab 60 mg/mL subcutaneous syringe 60 mg SUBCUT .Q 6 MONTHS ml 06/14/19 [History Confirmed 06/24/19] docusate sodium 100 mg tablet 100 mg PO BID PRN tab 06/14/19 [History Confirmed 06/24/19] famotidine 40 mg tablet 40 mg PO QAM tab 06/14/19 [History Confirmed 06/24/19] gabapentin 400 mg capsule 400 mg PO TID 30 Days #90 cap 06/14/19 [Rx Confirmed 06/24/19] glycerin (child) 1 supp NE DAILY PRN 06/14/19 [History Confirmed 06/24/19] melatonin 5 mg tablet 15 mg PO HS tab 06/14/19 [History Confirmed 06/24/19] metronidazole 0.75 % topical gel 1 applic TOPICAL BID #1 gm 06/14/19 [History Confirmed 06/24/19] minocycline 50 mg capsule 50 mg PO DAILY PRN #30 cap 06/14/19 [History Confirmed 06/24/19] mometasone 0.1 % topical cream 1 applic TOPICAL DIRECTED PRN #1 gm 06/14/19 [History Confirmed 06/24/19] montelukast 10 mg tablet 10 mg PO QAM tab 06/14/19 [History Confirmed 06/24/19] multivitamin,fb-hqiq-yqrbibsx tablet 1 tab PO DAILY 06/14/19 [History Confirmed 06/24/19] omeprazole 20 mg capsule,delayed release 20 mg PO QPM #30 cap 06/14/19 [History Confirmed 06/24/19] rasagiline 0.5 mg tablet 0.5 mg PO DAILY #30 tab 06/14/19 [History Confirmed 06/24/19] sennosides 8.6 mg-docusate sodium 50 mg tablet 3 tab PO QAM tab 06/14/19 [History Confirmed 06/24/19] L. gasseri-B. bifidum-B longum [[facility]] 1 cap PO .2 HRS POST NYSTATIN 06/24/19 [History Confirmed 06/24/19] Mg L-Theronate 450 mg PO HS 06/24/19 [History Confirmed 06/24/19] G-Wqwrou-O-Cysteine 600 mg PO BID 06/24/19 [History Confirmed 06/24/19] Reishi 376 mg PO BID 06/24/19 [History Confirmed 06/24/19] acyclovir 1 applic TOPICAL DIRECTED PRN 06/24/19 [History Confirmed 06/24/19] aspirin-sod bicarb-citric acid [Zuleima-Kinards Extra Strength] 1 ea PO DIRECTED PRN 06/24/19 [History Confirmed 06/24/19] cholecalciferol (vitamin D3) [Vitamin D3] 2,000 unit PO DAILY 06/24/19 [History Confirmed 06/24/19] cholecalciferol (vitamin D3) [Vitamin D3] 5,000 unit PO DAILY 06/24/19 [History Confirmed 06/24/19] glutamine (bulk) [L-Glutamine] 1 ea MISCELLANEOUS QPM 06/24/19 [History Confirmed 06/24/19] lidocaine HCl 1 applic TOPICAL BID PRN 06/24/19 [History Confirmed 06/24/19] nystatin 500,000 unit PO BID 06/24/19 [History Confirmed 06/24/19] oregano oil 1,500 mg PO QAM 06/24/19 [History Confirmed 06/24/19] phenyleph-min oil-petrolatum [Preparation H] 1 applic NE DIRECTED PRN 06/24/19 [History Confirmed 06/24/19] pramoxine [Sarna Sensitive] 1 applic TOPICAL BID PRN 06/24/19 [History Confirmed 06/24/19] simethicone 80 mg PO DIRECTED PRN 06/24/19 [History Confirmed 06/24/19] Active Medications Albuterol (Ventolin Hfa) 1 - 2 puffs INH Q6H PRN PRN Reason: Shortness Of Breath Or Wheezin Stop: 07/24/19 02:39 Carbidopa/Levodopa (Sinemet Cr 50/200mg) 1 tab PO HS NINA Stop: 07/24/19 20:59 Carbidopa/Levodopa (Sinemet 25/100 Mg) 2 tab PO [id number] NINA Stop: 07/24/19 06:59 Dipyridamole/Aspirin (Aggrenox 200mg/25mg) 1 cap PO BID NINA Stop: 07/24/19 08:59 Docusate Sodium (Colace) 100 mg PO BID PRN PRN Reason: Constipation Estrogens Conjugated (Premarin Vag) 1 appln PV 2XWK NINA Stop: 07/24/19 02:39 Famotidine (Pepcid) 40 mg PO QAM NINA Stop: 07/24/19 08:59 Gabapentin (Neurontin) 400 mg PO TID NINA Stop: 07/24/19 08:59 Glycerin (Glycerin Child) 1 supp NE DAILY PRN PRN Reason: Constipation Doxycycline Hyclate 100 mg/ (Dextrose) 110 mls @ 50 mls/hr IV Q12H NINA Stop: 07/08/19 02:59 Last Infusion: 06/24/19 03:52 Dose: 0 mls/hr Documented by: Sodium Chloride (Nss 1000ml) 1,000 mls @ 80 mls/hr IV .[id number] NINA Stop: 07/24/19 03:14 Metronidazole (Metrogel) 1 appln TOP BID NINA Stop: 07/04/19 08:59 Miscellaneous (Order Awaiting Action) 1 ea N/A QS NINA Stop: 07/24/19 07:59 Mometasone Furoate (Elocon 0.1%) 1 appln EXT DIRECTED PRN PRN Reason: Skin Irritation Stop: 07/24/19 02:39 Montelukast Sodium (Singulair) 10 mg PO QAM NINA Stop: 07/24/19 08:59 Multivitamins/Minerals (Multivitamin W/ Minerals Tab) 1 tab PO DAILY NINA Stop: 07/24/19 08:59 Non-Formulary Medication (Cholecalciferol (Vitamin D3) [Vitamin D3]) 5,000 units PO DAILY NINA Stop: 07/24/19 08:59 Non-Formulary Medication (Clindamycin Phosphate) 1 appln TOP BID NINA Stop: 07/24/19 08:59 Non-Formulary Medication (L. Gasseri-B. Bifidum-B Longum [[facility]]) 1 cap PO .2 HRS POST NYSTATIN NINA Stop: 07/24/19 02:39 Non-Formulary Medication (Mg L-Theronate) 450 mg PO HS NINA Stop: 07/24/19 20:59 Non-Formulary Medication (Aspirin-Sod Bicarb-Citric Acid [Zuleima-Kinards Extra Strength]) 1 ea PO DIRECTED PRN PRN Reason: Indigestion Non-Formulary Medication (Lidocaine Hcl) 1 appln TOP BID PRN PRN Reason: NEEDED Non-Formulary Medication (Reishi) 376 mg PO BID NINA Stop: 07/24/19 08:59 Non-Formulary Medication (Phenyleph-Min Oil-Petrolatum [Preparation H]) 1 appln NE DIRECTED PRN PRN Reason: Hemorrhoids Non-Formulary Medication (Pramoxine [Sarna Sensitive]) 1 appln TOP BID PRN PRN Reason: Skin Irritation Non-Formulary Medication (Rasagiline) 0.5 mg PO DAILY NINA Stop: 07/24/19 08:59 Nystatin (Mycostatin) 500,000 units PO BID NINA Stop: 07/24/19 08:59 Pantoprazole Sodium (Protonix) 40 mg PO QPM NINA Stop: 07/24/19 20:59 Senna/Docusate Sodium (Senokot S) 3 tab PO QAM NINA Stop: 07/24/19 08:59 Simethicone (Mylicon) 80 mg PO Q6H PRN PRN Reason: GAS RELIEF Stop: 07/24/19 02:39 Vitamin D (Vitamin D3) 7,000 units PO DAILY NINA Stop: 07/24/19 08:59 Supervising Physician Co-Signing Physician Notes Attending addendum: I have physically seen this patient, have supervised the medical residents activities, and agree with the H&P unless as otherwise noted. Assessment and Plan: Left thigh cellulitis secondary to bite/principal differential is tickborne illness- Order labs and smear for Lyme, ehrlichiosis and anaplasmosis. Patient empirically on doxycycline 100 mg IV twice daily. Ceftriaxone 2 g IV now, and then 1 g IV daily. Follow serial CBC with differential, chemistry profile magnesium level. Elevated troponin 0 0.047- The patient will be admitted to telemetry for serial cardiac enzymes, serial EKG's, cardiac rhythm monitoring and a 2-D echocardiogram with Dopplers. Likely type II NSTEMI, supply demand mismatch. Acute kidney injury creatinine 2.27 with BUN 82 suggesting prerenal state. NSS at 80 mils per hour. Follow serial laboratories. Remainder of orders and medications as noted. PG Care Time/CCT Total # of Minutes Spent Total Time Spent with Patient: Total time spent is greater than 50% in coordination of care (as documented) at patient's floor/unit and/or counseling patient:
--- NOTE | 2019-06-24 01:48 | Emergency Department Note ---
Entered by Leilani Mayer acting as a scribe for Heriberto Quintanilla DO History of Present Illness General Chief complaint: Fall Stated complaint: WEEK, FELL LAST NIGHT, FATIGUE History of Present Illness Provider complaint: weakness Onset (ago): day(s) 2 Location: left and right Pain Consistency: + constant Quality: + other (weakness) Associated symptoms: + cough, + loss of appetite, + shortness of breath and + other (Negative abdominal pain; negative diarrhea; negative dysuria; negative hematuria); no nausea/vomiting The patient, who is a 84 year old female with a medical history of acid reflux, presents to the Emergency Room with complaints of constant weakness that started 2 days ago. The patient states that along with her chief complaint she has a cough, runny nose, loss of appetite and shortness of breath that started at the same time. The patient denies abdominal pain, nausea, vomiting, diarrhea, dysuria and hematuria. The patient reports that her blood pressure is normally low with her lowest being 90/70. The patient expresses that she had a recent fall 1 day ago where she fell to her side. The patient states that she broke her fall on her bed. The patient denies any pain related to her fall. She denies any chest pain. She does admit to shortness of breath which has been constant with exertion for the past several days. No other exacerbating or remitting factors. Home Medications Home Medications Medication Instructions Recorded Confirmed Type acetaminophen 500 mg tablet 500 mg PO DIRECTED PRN tab 06/14/19 06/24/19 History acyclovir 200 mg capsule 200 mg PO QAM cap 06/14/19 06/24/19 History albuterol sulfate HFA 90 1 - 2 puff INHALATION DIRECTED 06/14/19 06/24/19 History mcg/actuation aerosol inhaler PRN gm aspirin 25 mg-dipyridamole 200 mg 1 cap PO BID cap 06/14/19 06/24/19 History capsule,ext.release 12 hr multiphase carbidopa 25 mg-levodopa 100 mg 2 tab PO QID #240 tab 06/14/19 06/24/19 History tablet carbidopa ER 50 mg-levodopa 200 mg 1 tab PO HS #30 tab 06/14/19 06/24/19 History tablet,extended release chlorpheniramine 4 mg tablet 4 mg PO DAILY PRN tab 06/14/19 06/24/19 History clindamycin phosphate 1 % topical 1 applic TOPICAL BID #1 ml 06/14/19 06/24/19 History solution coenzyme Q10 200 mg capsule 200 mg PO QAM cap 06/14/19 06/24/19 History conjugated estrogens 0.625 mg/gram 1 applic PV 2XWK #1 gm 06/14/19 06/24/19 History vaginal cream denosumab 60 mg/mL subcutaneous 60 mg SUBCUT .Q 6 MONTHS ml 06/14/19 06/24/19 History syringe docusate sodium 100 mg tablet 100 mg PO BID PRN tab 06/14/19 06/24/19 History famotidine 40 mg tablet 40 mg PO QAM tab 06/14/19 06/24/19 History gabapentin 400 mg capsule 400 mg PO TID 30 Days #90 cap 06/14/19 06/24/19 Rx glycerin (child) 1 supp HI DAILY PRN 06/14/19 06/24/19 History melatonin 5 mg tablet 15 mg PO HS tab 06/14/19 06/24/19 History metronidazole 0.75 % topical gel 1 applic TOPICAL BID #1 gm 06/14/19 06/24/19 History minocycline 50 mg capsule 50 mg PO DAILY PRN #30 cap 06/14/19 06/24/19 History mometasone 0.1 % topical cream 1 applic TOPICAL DIRECTED PRN 06/14/19 06/24/19 History #1 gm montelukast 10 mg tablet 10 mg PO QAM tab 06/14/19 06/24/19 History multivitamin,nb-xxvh-scmkrfwt 1 tab PO DAILY 06/14/19 06/24/19 History tablet omeprazole 20 mg capsule,delayed 20 mg PO QPM #30 cap 06/14/19 06/24/19 History release rasagiline 0.5 mg tablet 0.5 mg PO DAILY #30 tab 06/14/19 06/24/19 History sennosides 8.6 mg-docusate sodium 3 tab PO QAM tab 06/14/19 06/24/19 History 50 mg tablet L. gasseri-B. bifidum-B longum 1 cap PO .2 HRS POST NYSTATIN 06/24/19 06/24/19 History [[facility]] Mg L-Theronate 450 mg PO HS 06/24/19 06/24/19 History O-Ntipla-T-Cysteine 600 mg PO BID 06/24/19 06/24/19 History Reishi 376 mg PO BID 06/24/19 06/24/19 History acyclovir 1 applic TOPICAL DIRECTED PRN 06/24/19 06/24/19 History aspirin-sod bicarb-citric acid 1 ea PO DIRECTED PRN 06/24/19 06/24/19 History [Zuleima-[place] Extra Strength] cholecalciferol (vitamin D3) 2,000 unit PO DAILY 06/24/19 06/24/19 History [Vitamin D3] cholecalciferol (vitamin D3) 5,000 unit PO DAILY 06/24/19 06/24/19 History [Vitamin D3] glutamine (bulk) [L-Glutamine] 1 ea MISCELLANEOUS QPM 06/24/19 06/24/19 History lidocaine HCl 1 applic TOPICAL BID PRN 06/24/19 06/24/19 History nystatin 500,000 unit PO BID 06/24/19 06/24/19 History oregano oil 1,500 mg PO QAM 06/24/19 06/24/19 History phenyleph-min oil-petrolatum 1 applic HI DIRECTED PRN 06/24/19 06/24/19 History [Preparation H] pramoxine [Sarna Sensitive] 1 applic TOPICAL BID PRN 06/24/19 06/24/19 History simethicone 80 mg PO DIRECTED PRN 06/24/19 06/24/19 History Allergies Allergy/AdvReac Type Severity Reaction Status Date / Time propoxyphene Allergy Severe ITCHING,LLOYD Verified 06/24/19 00:01 H,DYSPNEA adhesive Allergy Intermediate ADHESIVE Verified 06/24/19 00:01 TAPE-DERMATITIS pseudoephedrine Allergy Intermediate FACIAL Verified 06/24/19 00:01 SWELLING, PHOTOSENSITIVITY bacitracin Allergy Mild REDNESS Verified 06/24/19 00:01 latex Allergy Mild BLISTER Verified 06/24/19 00:01 Past Med/Surg History Medical History Acid reflux (Chronic) Social History Feels Safe at Home: Yes Smoking Status: Never smoker Review of Systems See HPI for pertinent positives & negatives. and A total of 10 systems reviewed and were otherwise negative Physical Exam Vital Signs Vital Signs - 24 hr 06/23/19 20:17 06/23/19 22:16 06/23/19 22:31 Temperature 36.7 C Temperature Source Oral Sepsis Recent Fever Within 48 Hours No Sepsis Action Taken by Nursing No Action Required Pulse Rate 92 H Pulse Rate [Apical] 84 80 Respiratory Rate 20 18 22 Respiratory Effort / Characteristics Non-Labored Spontaneous Non-Labored Non-Labored Respiratory Depth Normal Normal Normal Respiratory Pattern Regular Blood Pressure 75/37 L Blood Pressure [Left Arm] 103/51 L 103/51 L Blood Pressure Mean 49 Blood Pressure Mean [Left Arm] 68 68 Blood Pressure Position [Left Arm] Lying Pulse Oximetry 96 99 99 Oxygen Delivery Method Room Air Room Air 06/24/19 01:34 Temperature Temperature Source Sepsis Recent Fever Within 48 Hours Sepsis Action Taken by Nursing Pulse Rate Pulse Rate [Apical] 84 Respiratory Rate Respiratory Effort / Characteristics Respiratory Depth Respiratory Pattern Blood Pressure Blood Pressure [Left Arm] 108/50 L Blood Pressure Mean Blood Pressure Mean [Left Arm] 69 Blood Pressure Position [Left Arm] Pulse Oximetry 100 Oxygen Delivery Method Room Air GENERAL: alert, chronically ill-appearing, disheveled, cachectic EYE EXAM: normal conjunctiva, OROPHARYNX: no exudate, no erythema, lips, buccal mucosa, and tongue normal and mucous membranes are moist NECK: supple, no nuchal rigidity, no adenopathy, non-tender LUNGS: Diminished breath sounds bilaterally at the bases. Normal chest wall mechanics HEART: no murmurs, S1 normal and S2 normal ABDOMEN: abdomen soft, non-tender, normo-active bowel sounds, no masses, no rebound or guarding. BACK: Back is symmetrical on inspection and there is no deformity, no midline tenderness, no CVA tenderness. SKIN: no rashes and no bruising UPPER EXTREMITIES: upper extremities are grossly normal. LOWER EXTREMITIES: No pitting edema. Calves equal bilaterally NEURO EXAM: Normal sensorium, cranial nerves II-XII grossly intact, normal speech, no gross weakness of arms, no gross weakness of legs. Course ED COURSE: Vital signs were reviewed and showed hypotensive The patients medical record was reviewed The above diagnostic studies were performed and reviewed. ED treatments and interventions as stated above. 2023: The patient was evaluated in room B4. A complete history and physical examination was performed. 3: I reviewed the patient's case with Dr. Licea, [facility] Hospitalist. He will evaluate the patient for further management. 2220: Upon reevaluation, the patient is resting.I discussed my findings with the patient and she understands and agrees with the treatment plan. Based on the patients age, coexisting illnesses, exam and lab findings the decision to treat as an inpatient was made. The patient remained stable while under my care. The patient will be evaluated for further management. Consultations Consultation #1: I reviewed the patient's case with Dr. Licea, [facility] Hospitalist. He will evaluate the patient for further management. Time: 22:13 Administered Medications Discontinued Medications Sodium Chloride (Nss 1000ml) 1,000 mls @ 999 mls/hr IV .Q1H1M NINA Stop: 06/23/19 21:45 Last Infusion: 06/23/19 22:30 Dose: 0 mls/hr Documented by: [id number] Admin: 06/23/19 20:57 Dose: 999 mls/hr Documented by: [id number] Cefepime HCl (Maxipime) 2,000 mg in 20 mls @ 5 mls/min IV NOW STA; Protocol Stop: 06/23/19 21:55 Last Admin: 06/23/19 22:30 Dose: 5 mls/min Documented by: [id number] Sodium Chloride (Nss 1000ml) 1,000 mls @ 999 mls/hr IV .Q1H1M ONE Stop: 06/23/19 23:02 Last Admin: 06/23/19 22:31 Dose: 999 mls/hr Documented by: [id number] Medical Decision Making Differential Diagnosis Differential includes acute coronary syndrome, myocardial infarction, CVA, TIA, anemia, infection, pneumonia, UTI, pyelonephritis, poor nutrition, dehydration, electrolyte disturbance,hypoglycemia. Medical Records Attestation: I reviewed the patient's medical records. Home Medications Current Medication List: was personally reviewed by me Laboratory Data Attestation: I reviewed the patient's lab results. Result diagrams: 06/23/19 20:57 06/23/19 20:57 Lab Results 06/23/19 06/23/19 06/23/19 Range/Units 20:57 20:57 20:57 WBC 2.23 L (4.8-10.8) K/uL RBC 4.68 (4.2-5.4) M/uL Hgb 14.8 (12.0-16.0) g/dL Hct 41.5 (37-47) % MCV 88.7 (80-100) fL MCH 31.6 (25-34) pg MCHC 35.7 (32-36) g/dL RDW Std Deviation 46.6 H (36.4-46.3) fL RDW Coeff of Susan 14.3 (11.5-14.5) % Plt Count 43 L (130-400) K/uL Immature Gran % (Auto) 0.9 % Neut % (Auto) 82.1 % Lymph % (Auto) 12.6 % [place] % (Auto) 3.6 % Eos % (Auto) 0.4 % Baso % (Auto) 0.4 % Immature Gran # (Auto) 0.02 (0.00-0.02) K/uL Neut # (Auto) 1.83 (1.4-6.5) K/uL Lymph # (Auto) 0.28 L (1.2-3.4) K/uL [place] # (Auto) 0.08 L (0.11-0.59) K/uL Eos # (Auto) 0.01 (0-0.5) K/uL Baso # (Auto) 0.01 (0-0.2) K/uL Platelet Estimate Decreased L (Normal) Tear Drop Cells 1+ Echinocytes 1+ PT 11.0 (9.0-12.0) Seconds INR 1.1 (0.9-1.1) Sodium 132 L (136-145) mmol/L Potassium 3.4 L (3.5-5.1) mmol/L Chloride 100 (98-107) mmol/L Carbon Dioxide 20 L (21-32) mmol/L Anion Gap 12.0 H (3-11) BUN 82 H (7-18) mg/dl Creatinine 2.27 H (0.6-1.2) mg/dl Est Cr Clr Drug Dosing 13.5 ml/min Est GFR ( Amer) 22.4 Est GFR (Non-Af Amer) 19.3 BUN/Creatinine Ratio 36.0 H (10-20) Glucose 120 H (70-99) mg/dl Lactate (0.4-2.0) mmol/L Calcium 8.1 L (8.5-10.1) mg/dl Magnesium 3.3 H (1.8-2.4) mg/dl Total Bilirubin 0.8 (0.2-1) mg/dl AST 260 H (15-37) U/L ALT 17 (12-78) U/L Alkaline Phosphatase 56 (45-117) U/L Troponin I 0.047 H* (0-0.045) ng/ml Total Protein 6.9 (6.4-8.2) gm/dl Albumin 3.2 L (3.4-5.0) gm/dl Globulin 3.7 (2.5-4.0) gm/dl Albumin/Globulin Ratio 0.9 (0.9-2) TSH 1.170 (0.300-4.500) uIu/ml Urine Color Urine Appearance (Clear) Urine pH (4.5-7.5) Ur Specific [place] (1.000-1.030) Urine Protein (Negative) Urine Glucose (UA) (Negative) Urine Ketones (Negative) Urine Blood (Negative) Urine Nitrite (Negative) Urine Bilirubin (Negative) Urine Urobilinogen (Negative) Ur Leukocyte Esterase (Negative) Urine WBC (Auto) (0-5) /hpf Urine RBC (Auto) (0-4) /hpf U Hyaline Cast (Auto) (0-5) /lpf U Epithel Cells (Auto) (0-5) /lpf Urine Bacteria (Auto) (Negative) Granular Casts (0) /lpf RBC Casts (0) /lpf Urine Yeast 06/23/19 06/23/19 Range/Units 20:57 Unknown WBC (4.8-10.8) K/uL RBC (4.2-5.4) M/uL Hgb (12.0-16.0) g/dL Hct (37-47) % MCV (80-100) fL MCH (25-34) pg MCHC (32-36) g/dL RDW Std Deviation (36.4-46.3) fL RDW Coeff of Susan (11.5-14.5) % Plt Count (130-400) K/uL Immature Gran % (Auto) % Neut % (Auto) % Lymph % (Auto) % [place] % (Auto) % Eos % (Auto) % Baso % (Auto) % Immature Gran # (Auto) (0.00-0.02) K/uL Neut # (Auto) (1.4-6.5) K/uL Lymph # (Auto) (1.2-3.4) K/uL [place] # (Auto) (0.11-0.59) K/uL Eos # (Auto) (0-0.5) K/uL Baso # (Auto) (0-0.2) K/uL Platelet Estimate (Normal) Tear Drop Cells Echinocytes PT (9.0-12.0) Seconds INR (0.9-1.1) Sodium (136-145) mmol/L Potassium (3.5-5.1) mmol/L Chloride (98-107) mmol/L Carbon Dioxide (21-32) mmol/L Anion Gap (3-11) BUN (7-18) mg/dl Creatinine (0.6-1.2) mg/dl Est Cr Clr Drug Dosing ml/min Est GFR ( Amer) Est GFR (Non-Af Amer) BUN/Creatinine Ratio (10-20) Glucose (70-99) mg/dl Lactate 1.7 (0.4-2.0) mmol/L Calcium (8.5-10.1) mg/dl Magnesium (1.8-2.4) mg/dl Total Bilirubin (0.2-1) mg/dl AST (15-37) U/L ALT (12-78) U/L Alkaline Phosphatase (45-117) U/L Troponin I (0-0.045) ng/ml Total Protein (6.4-8.2) gm/dl Albumin (3.4-5.0) gm/dl Globulin (2.5-4.0) gm/dl Albumin/Globulin Ratio (0.9-2) TSH (0.300-4.500) uIu/ml Urine Color Yellow Urine Appearance Cloudy A (Clear) Urine pH 5.0 (4.5-7.5) Ur Specific [place] 1.022 (1.000-1.030) Urine Protein 1+ H (Negative) Urine Glucose (UA) Negative (Negative) Urine Ketones Negative (Negative) Urine Blood 1+ H (Negative) Urine Nitrite Negative (Negative) Urine Bilirubin Negative (Negative) Urine Urobilinogen Negative (Negative) Ur Leukocyte Esterase Negative (Negative) Urine WBC (Auto) 1-5 (0-5) /hpf Urine RBC (Auto) 0-4 (0-4) /hpf U Hyaline Cast (Auto) 10-30 H (0-5) /lpf U Epithel Cells (Auto) >30 H (0-5) /lpf Urine Bacteria (Auto) Negative (Negative) Granular Casts 5-10 H (0) /lpf RBC Casts 1-5 H (0) /lpf Urine Yeast Not Reportable Imaging Data Radiologist's Impression: Radiology results as stated below per my review and the radiologist's interpretation: SINGLE VIEW CHEST CLINICAL HISTORY: Generalized weakness. FINDINGS: An AP, portable, upright chest radiograph is compared to study dated 10/10/2017. The examination is degraded by portable technique and patient rotation. The cardiomediastinal silhouette is unremarkable. The lungs and pleural spaces are clear. No pneumothorax is seen. The skeletal structures are osteopenic. The bony thorax is grossly intact. IMPRESSION: No active disease in the chest. Electronically signed by: Jose Franklin M.D. 06/23/2019 9:11 PM US VENOUS BILATERAL LOWER EXTREMITIES: No evidence of DVT in the visualized veins of the bilateral lower extremities. Radiology: Christine Holland MD Study ready at 23:23 and initial results transmitted at 23:49 ULTRASOUND BILATERAL LOWER EXTREMITY VENOUS CLINICAL HISTORY: Leg pain. COMPARISON STUDY: No priors. TECHNIQUE: Real-time, grayscale, and color Doppler sonography of the deep veins of the right and left lower extremity was performed from the inguinal crease to the calf. Compression and augmentation were utilized. FINDINGS: There is no sonographic evidence of deep venous thrombosis identified in the right or left lower extremity. The common femoral, superficial femoral, and popliteal veins are patent and normally compressible bilaterally. The greater saphenous vein and the profunda femoris vein at the junction with the common femoral vein are clear in both legs. The visualized calf veins are patent bilaterally. IMPRESSION: There is no sonographic evidence of deep venous thrombosis identifi ed in the right or left lower extremity. Electronically signed by: Jose Franklin M.D. 06/23/2019 11:29 PM ECG Data Attestation: I personally reviewed and interpreted this ECG as follows: Indication: weakness Rate (beats per minute): 90 Rhythm: sinus rhythm Findings: + other (normal axis); no PVC Blood Pressure Blood Pressure Findings: Low blood pressure Blood Pressure Disposition: further management by hospitalist DIVYA Narrative Patient is an 84-year-old female who presents the ER for weakness dizziness and fall. She denies hitting her head. Upon presentation is found to have systolic blood pressure in the 70s. IV was established blood work was obtained. Labs show a mild leukopenia at 2.2. No significant anemia. INR is unremarkable. BMP with mild hypokalemia. Creatinine was significant elevated 2.2 and BUN and I was well at 80 from a baseline of 0.8. Lactate was normal. Troponin was elevated 0.047. With her hypotension and shortness of breath did want to obtain a CT PE but not possible at this time. Duplex of the lower extremities was obtained and was negative. UA was contaminated with multiple epithelial cells. Patient was given over 2 L IV fluids and systolic blood pressures trended up to the low 100s from the 70s. Patient was updated bedside. She was given a dose of antibiotics with the leukopenia and hypotension. She was updated bedside and admitted to the hospital. Impression & Plan Dehydration, Elevated troponin, Shortness of breath, Leukopenia Critical Care Time Critical Care Time: Yes Total Critical Care Time: 30 I have personally spent 30 minutes of critical care time in the direct management of this patient. This includes bedside care, interpretation of diagnostic studies, and testing, discussion with consultants, patient, and family members, and other required patient management activities. This 30 minutes is in excess of all separately billable procedures. Discharge Plan Visit Data Chief Complaint: Fall Stated Complaint: WEEK, FELL LAST NIGHT, FATIGUE ED Provider: Heriberto Quintanilla Discharge Problem: Dehydration, Elevated troponin, Shortness of breath, Leukopenia Patient Disposition: Being Evaluated by Hospitalist Forms Stand Alone Forms: My [facility] Prescriptions Prescriptions: No Action gabapentin 400 mg capsule 400 mg PO TID 30 Days Qty: 90 RF: 5 melatonin 5 mg tablet 15 mg PO HS RF: 0 coenzyme Q10 200 mg capsule 200 mg PO QAM RF: 0 mometasone 0.1 % cream 1 applic topical DIRECTED PRN (Reason: Skin Irritation) Qty: 1 RF: 0 docusate sodium 100 mg tablet 100 mg PO BID PRN (Reason: Constipation) RF: 0 acyclovir 200 mg capsule 200 mg PO QAM RF: 0 montelukast 10 mg tablet 10 mg PO QAM RF: 0 acetaminophen 500 mg tablet 500 mg PO DIRECTED PRN (Reason: Pain) RF: 0 sennosides-docusate sodium 8.6-50 mg tablet 3 tab PO QAM RF: 0 chlorpheniramine maleate 4 mg tablet 4 mg PO DAILY PRN (Reason: Allergy Symptoms) RF: 0 Prolia 60 mg/mL syringe 60 mg subcut .Q 6 MONTHS RF: 0 Complete Multivitamin tablet 1 tab PO DAILY RF: 0 omeprazole 20 mg capsule,delayed release(DR/EC) 20 mg PO QPM Qty: 30 RF: 0 metronidazole 0.75 % gel 1 applic topical BID Qty: 1 RF: 0 famotidine 40 mg tablet 40 mg PO QAM RF: 0 clindamycin phosphate 1 % solution 1 applic topical BID Qty: 1 RF: 0 glycerin (child) 1 supp HI DAILY PRN (Reason: Constipation) RF: 0 minocycline 50 mg capsule 50 mg PO DAILY PRN (Reason: NEEDED) Qty: 30 RF: 0 albuterol sulfate 90 mcg/actuation HFA aerosol inhaler 1 - 2 puff inhalation DIRECTED PRN (Reason: Shortness Of Breath Or Wheezing) RF: 0 Premarin 0.625 mg/gram cream 1 applic PV 2XWK Qty: 1 RF: 0 aspirin-dipyridamole 25-200 mg capsule, ER multiphase 12 hr 1 cap PO BID RF: 0 carbidopa-levodopa 25-100 mg tablet 2 tab PO QID Qty: 240 RF: 0 carbidopa-levodopa 50-200 mg tablet extended release 1 tab PO HS Qty: 30 RF: 0 rasagiline 0.5 mg tablet 0.5 mg PO DAILY Qty: 30 RF: 0 cholecalciferol (vitamin D3) [Vitamin D3] 2,000 unit Capsule 2,000 unit PO DAILY RF: 0 cholecalciferol (vitamin D3) [Vitamin D3] 5,000 unit Tablet 5,000 unit PO DAILY RF: 0 nystatin 500,000 unit Tablet 500,000 unit PO BID RF: 0 acyclovir 5 % Ointment 1 applic TOPICAL DIRECTED PRN (Reason: NEEDED) RF: 0 Sarna Sensitive 1 % Lotion 1 applic TOPICAL BID PRN (Reason: Skin Irritation) RF: 0 glutamine (bulk) [L-Glutamine] Powder 1 ea MISCELLANEOUS QPM RF: 0 simethicone 80 mg Tablet,Chewable 80 mg PO DIRECTED PRN (Reason: GAS RELIEF) RF: 0 oregano oil 1,500 mg Capsule 1,500 mg PO QAM RF: 0 [facility] 1.5 billion cell Capsule 1 cap PO .2 HRS POST NYSTATIN RF: 0 lidocaine HCl 2 % Cream 1 applic TOPICAL BID PRN (Reason: NEEDED) RF: 0 Preparation H 0.25-14-74.9 % Ointment 1 applic HI DIRECTED PRN (Reason: Hemorrhoids) RF: 0 Zuleima-[place] Extra Strength 500-1,985-1,000 mg Tablet, Effervescent 1 ea PO DIRECTED PRN (Reason: Indigestion) RF: 0 Mg L-Theronate 450 mg PO HS RF: 0 W-Bmmfqg-R-Cysteine 600 mg PO BID RF: 0 Reishi 376 mg PO BID RF: 0 Referrals Referrals: Arsen Aguilar MD [Primary Care Provider] - Discharge Problem: Leukopenia Qualifiers: Leukopenia type: unspecified Qualified Code(s): D72.819 - Decreased white blood cell count, unspecified The scribe's documentation has been prepared under my direction and personally reviewed by me in its entirety. I confirm that the note above accurately reflects all work, treatment, procedures, and medical decision making performed by me.
[2019-06-24] MEDS ORDERED: SIMETHICONE 80 MG CHEW PO PRN (02:40)
[2019-06-24] MEDS ORDERED: ALBUTEROL HFA 8 GM INHALER INH PRN (02:40)
[2019-06-24] MEDS ORDERED: EUCERIN CR 120 GM JAR TOP PRN (02:40)
[2019-06-24] MEDS ORDERED: HYDROCORTISONE HC 2.5% CRM 30GM TUBE EXT PRN (02:40)
[2019-06-24] MEDS ORDERED: cefTRIAXone SODIUM 2,000 MG in DEXTROSE 5% 50 ML IV ONE (02:40)
[2019-06-24] MEDS ORDERED: DOCUSATE SODIUM 100 MG CAP PO PRN (02:40)
[2019-06-24] MEDS ORDERED: [UNRECOGNIZED DRUG - OTHER] PO SCH (02:40)
[2019-06-24] MEDS ORDERED: MINOCYCLINE 50 MG PO PRN (02:40)
[2019-06-24] MEDS ORDERED: GLYCERIN CHILD SUPP PR PRN (02:40)
[2019-06-24] MEDS ORDERED: MOMETASONE FUROATE 0.1% CR 15 GM TUBE EXT PRN (02:40)
[2019-06-24] MEDS ORDERED: [UNRECOGNIZED DRUG - OTHER] PO PRN (02:40)
[2019-06-24] MEDS ORDERED: SODIUM CHLORIDE 0.9% 1000ML 1,000 ML IV SCH (03:15)
[2019-06-24 03:26] LABS: Hematocrit (blood only) 32.6 % (37-47); Hemoglobin 11.4 g/dL (12.0-16.0); Mean Corpuscular Volume 88.1 fL (80-100); Mean Platelet Volume 11.7 fL (7.4-10.4); Platelet Count 33 K/uL (130-400); RDW Coefficient of Variation 14.1 % (11.5-14.5); White Blood Count 1.68 K/uL (4.8-10.8)
[2019-06-24 03:35] LABS: Lyme Ab IgG w/WB Rflx Negative (Negative); Lyme Ab IgM w/WB Rflx Negative (Negative)
[2019-06-24 03:44] LABS: Albumin Globulin Ratio 0.9 (0.9-2); Albumin Level 2.4 gm/dl (3.4-5.0); BUN Creatinine Ratio 48.5 (10-20); Bilirubin,Total 0.7 mg/dl (0.2-1); Calcium 6.7 mg/dl (8.5-10.1); Creatinine Clr Calc Pharmacy 21.5 ml/min; Est GFR (African American) 39.5; Est GFR (Non-African American) 34.1; Globulin 2.8 gm/dl (2.5-4.0); Potassium 3.1 mmol/L (3.5-5.1); Total Protein 5.2 gm/dl (6.4-8.2)
[2019-06-24] MEDS: DOXYCYCLINE HYCLATE 100 MG in DEXTROSE 5% 100 ML IV SCH ×2 (03:46→15:42)
[2019-06-24 04:21] LABS: Basophils # (auto) 0.02 K/uL (0-0.2); Basophils % (auto) 1.2 %; Dohle Bodies 1+; Echinocytes 1+; Giant Platelets 1+; Immature Granulocytes # (auto) 0.01 K/uL (0.00-0.02); Immature Granulocytes % (auto) 0.6 %; Lymphocytes # (auto) 0.26 K/uL (1.2-3.4); Lymphocytes % (auto) 15.5 %; Monocytes # (auto) 0.07 K/uL (0.11-0.59); Monocytes % (auto) 4.2 %; Neutrophils # (auto) 1.32 K/uL (1.4-6.5); Neutrophils % (auto) 78.5 %
[2019-06-24] MEDS ORDERED: POTASSIUM CHLORIDE 20 MEQ TABCR PO STA (04:33)
--- NOTE | 2019-06-24 06:35 | CT Scan Report ---
CT head/brain wo con CLINICAL HISTORY: Head pain status post trauma COMPARISON STUDY: MRI the brain dated 11/22/2018 TECHNIQUE: Axial CT of the brain is performed from the vertex to the skull base. IV contrast was not administered for this examination. A dose lowering technique was utilized adhering to the principles of ALARA. CT DOSE: 614.27 mGy.cm FINDINGS: No intra or extra-axial mass lesions are visualized. There is no CT evidence of acute cortical infarc tion. There is no evidence of midline shift. There is no acute hemorrhage. No calvarial fractures ar e visualized. There are patchy white matter hypodensities likely on a small vessel basis. There is no evidence of pathologic ventricular dilatation. There is no evidence of acute sinusitis IMPRESSION: No acute intracranial findings Electronically signed by: Alfie Luciano M.D. 06/24/2019 6:34 AM
[2019-06-24] MEDS: CARBIDOPA/LEVODOPA 25/100MG TAB PO SCH ×4 (08:00→18:50)
[2019-06-24] MEDS: DOCUSATE SODIUM/SENNA 50/8.6MG TAB PO SCH (08:56)
[2019-06-24] MEDS: CEROVITE ADV FORMULA TAB PO SCH (08:57)
[2019-06-24] MEDS: FAMOTIDINE 20 MG TAB PO SCH (08:57)
[2019-06-24] MEDS: MONTELUKAST SODIUM 10 MG TABLET PO SCH (08:57)
[2019-06-24] MEDS: CHOLECALCIFEROL 1,000 UNITS TAB PO SCH (08:58)
[2019-06-24] MEDS: LACTOBACILLUS ACIDOPHILUS (FLORANEX) TAB PO SCH ×2 (08:58→20:44)
[2019-06-24] MEDS: NYSTATIN 500,000 UNIT TAB PO SCH ×2 (08:58→20:48)
[2019-06-24] MEDS: GABAPENTIN 400 MG CAP PO SCH ×3 (08:59→20:44)
[2019-06-24] MEDS ORDERED: N ACETYL CYSTEINE PO SCH (09:00)
[2019-06-24] MEDS ORDERED: [UNRECOGNIZED DRUG - OTHER] PO SCH (09:00)
[2019-06-24] MEDS ORDERED: OREGANO OIL 1500 MG PO SCH (09:00)
[2019-06-24] MEDS ORDERED: NON-FORMULARY MEDICATION (Cholecalciferol (Vitamin D3) [Vitamin D3] 5,000 UNITS) PO SCH (09:00)
[2019-06-24] MEDS ORDERED: NON-FORMULARY MEDICATION (Coenzyme Q10 200 MG) PO SCH (09:00)
[2019-06-24] MEDS ORDERED: POTASSIUM CHLORIDE 20 MEQ TABCR PO ONE (09:00)
[2019-06-24] MEDS: metroNIDAZOLE 0.75% TOPICAL GEL 45 GM TUBE TOP SCH ×2 (09:01→20:43)
[2019-06-24 09:47] LABS: Magnesium 2.7 mg/dl (1.8-2.4); Phosphorus 2.4 mg/dl (2.5-4.9); Troponin I 0.046 ng/ml (0-0.045)
[2019-06-24] MEDS: DIPYRIDAMOLE/ASPIRIN CAP PO SCH (11:47)
[2019-06-24] MEDS ORDERED: SODIUM CHLORIDE 0.9% 250 ML IV PRN (13:17)
[2019-06-24] MEDS: RASAGILINE 0.5 MG PO SCH (13:41)
[2019-06-24] MEDS: LACTATED RINGER'S 1,000 ML IV SCH (13:41)
[2019-06-24] MEDS: CLINDAMYCIN PHOSPHATE TOPICAL SOLUTION TOP SCH ×2 (13:42→20:44)
[2019-06-24 14:16] LABS: Hematocrit (blood only) 32.3 % (37-47); Hemoglobin 11.1 g/dL (12.0-16.0)
--- NOTE | 2019-06-24 14:49 | Family Medicine Progress Note ---
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 Concern for anaplasmosis: Potential tick bite around 26Aug. Admit labs notable for CBC issues (as noted below) as well as mild AST elevation (improving). Negative for Lyme. 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 Erhlichiosis labs pending. In ED, given single doses of cefepime and ceftriaxone. 07Sep started empirically on doxycycline. Leukopenia, thrombocytopenia: WBC down to 1.68. ANC 1310 without noted fevers. Platelets down to 33. Thought to be related to suspected tickborne illness as above. - Given concerns for GI bleed, will transfuse 1 unit of platelets. Recheck in a.m. Anemia, GI bleed: Initial hemoglobin was 14.8 but a.m. recheck was down to 11.4. Nursing notes positive melanotic stools along with being Hemoccult positive. Patient denies abdominal pain though reports history of a colon resection (? cecectomy in 2006 for colon mass). HR stable with borderline low BP. Afternoon hemoglobin recheck stable at 11.1. - We will make n.p.o. Hold her Aggrenox. Type and screen. Consulted GI. Serial h/h. Recent fall, leg pain: 05Sep mechanical fall onto carpet without LOC or related pain. TSH normal. Low albumin. Admit CT head and pCXR were non-acute. Bilateral extremity Doppler exams without evidence of DVT. UA is dirty specimen, with UCx pending (and UTI-related asymptomatic). Lab issues: - Acute kidney injury: Admit Cr 2.27 and BUN 82, improved with IVF. Likely significant pre-renal component. Monitoring. - Hypokalemia: Potassium down to 3.1. Replaced, monitoring. - Hypermagnesemia: Admit Mg 3.3. Given IVF, improving. Monitoring. - Elevated troponin: Admit troponin 0.047 with serial was rechecked near identical. EKG is NSR 90 with normal intervals and no acute ST-T wave changes. Never any chest pain. Monitoring. Ongoing medical issues: - Parkinson's disease: Continue home carbidopa levodopa, gabapentin, rasagiline. - Constipation: Continue senna and simethicone as needed. - Asthma, allergies: Continue home montelukast - Acne: Continue minocycline. - GERD: Continue home omeprazole and famotidine. - Osteoporosis: On Prolia at home. Code status: Per patient, she has pre-existing DNR/DNI wishes with associated living well. Diet: Regular. DVT prophy: SCDs. Held chemical prophylaxis due to concerns for GI bleed. PT/OT: Deferred initially, but once more stable will order. Disbo: Admitted to [facility] with telemetry. At baseline lives at home with her . (2) Leukopenia: (3) Thrombocytopenia: (4) Anemia: (5) GI bleed: (6) Fall: (7) Leg pain: (8) Acute kidney injury: (9) Hypokalemia: (10) Hypermagnesemia: (11) Elevated troponin: (12) Parkinson disease: (13) Constipation: (14) Asthma: (15) Acne: (16) GERD (gastroesophageal reflux disease): (17) Osteoporosis: Supervising Physician Co-Signing Physician Notes Resident Physician Supervision Note: I independently interviewed and examined the patient and verified the li history and physical, reviewed labs and image studies, discussed the case with the resident Dr. Gonzalez and agree with the findings and care plan. Subjective Found patient resting comfortably earlier this morning. She said that she continues to have a "pervasive tiredness" but that it seems a bit improved compared to yesterday. She denies any acute pains or other concerns. On review of systems, she denies any known easy bleeding, gum bleeding, or dark stools. She also denies any urinary symptoms as well as any problems related to urination. She does mention that feels a little short of breath with exertion but denies any associated chest pain. Review of Systems Review of Systems: ROS per HPI. Physical Exam Physical Exam: General Appearance: Awake, alert & oriented, pleasantly conversational, comfortable in general, NAD. Thin habitus. CV: +S1S2 RRR, no murmur. Pulm: Clear to auscultation throughout. Abdomen: +BS, soft, non-distended. Positive subjective > objective generalized very mild tenderness throughout abdomen. Well-healed sub-umbilical midline surgical incision. Extremities: No pedal edema or calf tenderness. Moving all extremities naturally and easily. On the left inner thigh there is an approximately 1 cm relatively faint area of erythema with a central punctate lesion consistent with prior insect bite. Neuro: No gross neuro deficits. Results & Data Vital Signs (Past 12 Hours) Vital Signs Temp Pulse Pulse Resp BP BP Pulse Ox 06/24/19 11:19 36.8 C 66 16 90/48 L 100 06/24/19 07:33 37.6 C H 74 16 90/50 L 99 06/24/19 04:12 37.0 C 82 20 108/61 99 06/24/19 03:31 87 06/24/19 03:14 36.8 C 83 20 103/61 100 Laboratory Results 06/24/19 06/24/19 06/24/19 Range/Units 14:01 14:01 08:26 WBC (4.8-10.8) K/uL RBC (4.2-5.4) M/uL Hgb 11.1 L (12.0-16.0) g/dL Hct 32.3 L (37-47) % MCV (80-100) fL MCH (25-34) pg MCHC (32-36) g/dL RDW Std Deviation (36.4-46.3) fL RDW Coeff of Susan (11.5-14.5) % Plt Count (130-400) K/uL MPV (7.4-10.4) fL Immature Gran % (Auto) % Neut % (Auto) % Lymph % (Auto) % Kane % (Auto) % Eos % (Auto) % Baso % (Auto) % Immature Gran # (Auto) (0.00-0.02) K/uL Neut # (Auto) (1.4-6.5) K/uL Lymph # (Auto) (1.2-3.4) K/uL Kane # (Auto) (0.11-0.59) K/uL Eos # (Auto) (0-0.5) K/uL Baso # (Auto) (0-0.2) K/uL Dohle Bodies Platelet Estimate (Normal) Giant Platelets Tear Drop Cells Echinocytes Peripher Smr Path Cons PT (9.0-12.0) Seconds INR (0.9-1.1) Sodium (136-145) mmol/L Potassium (3.5-5.1) mmol/L Chloride (98-107) mmol/L Carbon Dioxide (21-32) mmol/L Anion Gap (3-11) BUN (7-18) mg/dl Creatinine (0.6-1.2) mg/dl Est Cr Clr Drug Dosing ml/min Est GFR ( Amer) Est GFR (Non-Af Amer) BUN/Creatinine Ratio (10-20) Glucose (70-99) mg/dl Lactate (0.4-2.0) mmol/L Calcium (8.5-10.1) mg/dl Phosphorus 2.4 L (2.5-4.9) mg/dl Magnesium 2.7 H (1.8-2.4) mg/dl Total Bilirubin (0.2-1) mg/dl AST (15-37) U/L ALT (12-78) U/L Alkaline Phosphatase (45-117) U/L Troponin I 0.046 H* (0-0.045) ng/ml Total Protein (6.4-8.2) gm/dl Albumin (3.4-5.0) gm/dl Globulin (2.5-4.0) gm/dl Albumin/Globulin Ratio (0.9-2) TSH (0.300-4.500) uIu/ml Urine Color Urine Appearance (Clear) Urine pH (4.5-7.5) Ur Specific [place]ham (1.000-1.030) Urine Protein (Negative) Urine Glucose (UA) (Negative) Urine Ketones (Negative) Urine Blood (Negative) Urine Nitrite (Negative) Urine Bilirubin (Negative) Urine Urobilinogen (Negative) Ur Leukocyte Esterase (Negative) Urine WBC (Auto) (0-5) /hpf Urine RBC (Auto) (0-4) /hpf U Hyaline Cast (Auto) (0-5) /lpf U Epithel Cells (Auto) (0-5) /lpf Urine Bacteria (Auto) (Negative) Granular Casts (0) /lpf RBC Casts (0) /lpf Urine Yeast Stool Occult Bld Scrn (Negative) Anaplasma Smear A. phagocytophilum DNA Lyme Disease IgG Ab (Negative) Lyme Disease IgM Ab (Negative) E. chaffeensis IgG Ab E. chaffeensis IgM Ab E.chaffeensis DNA (PCR) E. chaffeensis Interp E. chaffeensis Comment Blood Type Pending Antibody Screen Pending 06/24/19 06/24/19 06/24/19 Range/Units 08:15 03:05 03:05 WBC (4.8-10.8) K/uL RBC (4.2-5.4) M/uL Hgb (12.0-16.0) g/dL Hct (37-47) % MCV (80-100) fL MCH (25-34) pg MCHC (32-36) g/dL RDW Std Deviation (36.4-46.3) fL RDW Coeff of Susan (11.5-14.5) % Plt Count (130-400) K/uL MPV (7.4-10.4) fL Immature Gran % (Auto) % Neut % (Auto) % Lymph % (Auto) % Kane % (Auto) % Eos % (Auto) % Baso % (Auto) % Immature Gran # (Auto) (0.00-0.02) K/uL Neut # (Auto) (1.4-6.5) K/uL Lymph # (Auto) (1.2-3.4) K/uL Kane # (Auto) (0.11-0.59) K/uL Eos # (Auto) (0-0.5) K/uL Baso # (Auto) (0-0.2) K/uL Dohle Bodies Platelet Estimate (Normal) Giant Platelets Tear Drop Cells Echinocytes Peripher Smr Path Cons PT (9.0-12.0) Seconds INR (0.9-1.1) Sodium 137 (136-145) mmol/L Potassium 3.1 L (3.5-5.1) mmol/L Chloride 112 H (98-107) mmol/L Carbon Dioxide 15 L (21-32) mmol/L Anion Gap 10.0 (3-11) BUN 69 H (7-18) mg/dl Creatinine 1.42 H D (0.6-1.2) mg/dl Est Cr Clr Drug Dosing 21.5 ml/min Est GFR ( Amer) 39.5 Est GFR (Non-Af Amer) 34.1 BUN/Creatinine Ratio 48.5 H (10-20) Glucose 105 H (70-99) mg/dl Lactate (0.4-2.0) mmol/L Calcium 6.7 L D (8.5-10.1) mg/dl Phosphorus (2.5-4.9) mg/dl Magnesium (1.8-2.4) mg/dl Total Bilirubin 0.7 (0.2-1) mg/dl AST 191 H (15-37) U/L ALT 14 (12-78) U/L Alkaline Phosphatase 37 L (45-117) U/L Troponin I (0-0.045) ng/ml Total Protein 5.2 L D (6.4-8.2) gm/dl Albumin 2.4 L (3.4-5.0) gm/dl Globulin 2.8 (2.5-4.0) gm/dl Albumin/Globulin Ratio 0.9 (0.9-2) TSH (0.300-4.500) uIu/ml Urine Color Urine Appearance (Clear) Urine pH (4.5-7.5) Ur Specific [place] (1.000-1.030) Urine Protein (Negative) Urine Glucose (UA) (Negative) Urine Ketones (Negative) Urine Blood (Negative) Urine Nitrite (Negative) Urine Bilirubin (Negative) Urine Urobilinogen (Negative) Ur Leukocyte Esterase (Negative) Urine WBC (Auto) (0-5) /hpf Urine RBC (Auto) (0-4) /hpf U Hyaline Cast (Auto) (0-5) /lpf U Epithel Cells (Auto) (0-5) /lpf Urine Bacteria (Auto) (Negative) Granular Casts (0) /lpf RBC Casts (0) /lpf Urine Yeast Stool Occult Bld Scrn Positive A (Negative) Anaplasma Smear A. phagocytophilum DNA Pending Lyme Disease IgG Ab (Negative) Lyme Disease IgM Ab (Negative) E. chaffeensis IgG Ab E. chaffeensis IgM Ab E.chaffeensis DNA (PCR) Pending E. chaffeensis Interp E. chaffeensis Comment Blood Type Antibody Screen 06/24/19 06/23/19 06/23/19 Range/Units 03:05 Unknown 20:57 WBC 1.68 L (4.8-10.8) K/uL RBC 3.70 L (4.2-5.4) M/uL Hgb 11.4 L D (12.0-16.0) g/dL Hct 32.6 L (37-47) % MCV 88.1 (80-100) fL MCH 30.8 (25-34) pg MCHC 35.0 (32-36) g/dL RDW Std Deviation 46.0 (36.4-46.3) fL RDW Coeff of Susan 14.1 (11.5-14.5) % Plt Count 33 L (130-400) K/uL MPV 11.7 H (7.4-10.4) fL Immature Gran % (Auto) 0.6 % Neut % (Auto) 78.5 % Lymph % (Auto) 15.5 % Kane % (Auto) 4.2 % Eos % (Auto) 0.0 % Baso % (Auto) 1.2 % Immature Gran # (Auto) 0.01 (0.00-0.02) K/uL Neut # (Auto) 1.32 L (1.4-6.5) K/uL Lymph # (Auto) 0.26 L (1.2-3.4) K/uL Kane # (Auto) 0.07 L (0.11-0.59) K/uL Eos # (Auto) 0.00 (0-0.5) K/uL Baso # (Auto) 0.02 (0-0.2) K/uL Dohle Bodies 1+ Platelet Estimate (Normal) Giant Platelets 1+ Tear Drop Cells Echinocytes 1+ Peripher Smr Path Cons Pending PT (9.0-12.0) Seconds INR (0.9-1.1) Sodium (136-145) mmol/L Potassium (3.5-5.1) mmol/L Chloride (98-107) mmol/L Carbon Dioxide (21-32) mmol/L Anion Gap (3-11) BUN (7-18) mg/dl Creatinine (0.6-1.2) mg/dl Est Cr Clr Drug Dosing ml/min Est GFR ( Amer) Est GFR (Non-Af Amer) BUN/Creatinine Ratio (10-20) Glucose (70-99) mg/dl Lactate (0.4-2.0) mmol/L Calcium (8.5-10.1) mg/dl Phosphorus (2.5-4.9) mg/dl Magnesium (1.8-2.4) mg/dl Total Bilirubin (0.2-1) mg/dl AST (15-37) U/L ALT (12-78) U/L Alkaline Phosphatase (45-117) U/L Troponin I (0-0.045) ng/ml Total Protein (6.4-8.2) gm/dl Albumin (3.4-5.0) gm/dl Globulin (2.5-4.0) gm/dl Albumin/Globulin Ratio (0.9-2) TSH (0.300-4.500) uIu/ml Urine Color Yellow Urine Appearance Cloudy A (Clear) Urine pH 5.0 (4.5-7.5) Ur Specific [place]ham 1.022 (1.000-1.030) Urine Protein 1+ H (Negative) Urine Glucose (UA) Negative (Negative) Urine Ketones Negative (Negative) Urine Blood 1+ H (Negative) Urine Nitrite Negative (Negative) Urine Bilirubin Negative (Negative) Urine Urobilinogen Negative (Negative) Ur Leukocyte Esterase Negative (Negative) Urine WBC (Auto) 1-5 (0-5) /hpf Urine RBC (Auto) 0-4 (0-4) /hpf U Hyaline Cast (Auto) 10-30 H (0-5) /lpf U Epithel Cells (Auto) >30 H (0-5) /lpf Urine Bacteria (Auto) Negative (Negative) Granular Casts 5-10 H (0) /lpf RBC Casts 1-5 H (0) /lpf Urine Yeast Not Reportable Stool Occult Bld Scrn (Negative) Anaplasma Smear See Comment A A. phagocytophilum DNA Lyme Disease IgG Ab Negative (Negative) Lyme Disease IgM Ab Negative (Negative) E. chaffeensis IgG Ab E. chaffeensis IgM Ab E.chaffeensis DNA (PCR) E. chaffeensis Interp E. chaffeensis Comment Blood Type Antibody Screen 06/23/19 06/23/19 06/23/19 Range/Units 20:57 20:57 20:57 WBC (4.8-10.8) K/uL RBC (4.2-5.4) M/uL Hgb (12.0-16.0) g/dL Hct (37-47) % MCV (80-100) fL MCH (25-34) pg MCHC (32-36) g/dL RDW Std Deviation (36.4-46.3) fL RDW Coeff of Susan (11.5-14.5) % Plt Count (130-400) K/uL MPV (7.4-10.4) fL Immature Gran % (Auto) % Neut % (Auto) % Lymph % (Auto) % Kane % (Auto) % Eos % (Auto) % Baso % (Auto) % Immature Gran # (Auto) (0.00-0.02) K/uL Neut # (Auto) (1.4-6.5) K/uL Lymph # (Auto) (1.2-3.4) K/uL Kane # (Auto) (0.11-0.59) K/uL Eos # (Auto) (0-0.5) K/uL Baso # (Auto) (0-0.2) K/uL Dohle Bodies Platelet Estimate (Normal) Giant Platelets Tear Drop Cells Echinocytes Peripher Smr Path Cons PT (9.0-12.0) Seconds INR (0.9-1.1) Sodium 132 L (136-145) mmol/L Potassium 3.4 L (3.5-5.1) mmol/L Chloride 100 (98-107) mmol/L Carbon Dioxide 20 L (21-32) mmol/L Anion Gap 12.0 H (3-11) BUN 82 H (7-18) mg/dl Creatinine 2.27 H (0.6-1.2) mg/dl Est Cr Clr Drug Dosing 13.5 ml/min Est GFR ( Amer) 22.4 Est GFR (Non-Af Amer) 19.3 BUN/Creatinine Ratio 36.0 H (10-20) Glucose 120 H (70-99) mg/dl Lactate 1.7 (0.4-2.0) mmol/L Calcium 8.1 L (8.5-10.1) mg/dl Phosphorus (2.5-4.9) mg/dl Magnesium 3.3 H (1.8-2.4) mg/dl Total Bilirubin 0.8 (0.2-1) mg/dl AST 260 H (15-37) U/L ALT 17 (12-78) U/L Alkaline Phosphatase 56 (45-117) U/L Troponin I 0.047 H* (0-0.045) ng/ml Total Protein 6.9 (6.4-8.2) gm/dl Albumin 3.2 L (3.4-5.0) gm/dl Globulin 3.7 (2.5-4.0) gm/dl Albumin/Globulin Ratio 0.9 (0.9-2) TSH 1.170 (0.300-4.500) uIu/ml Urine Color Urine Appearance (Clear) Urine pH (4.5-7.5) Ur Specific [place] (1.000-1.030) Urine Protein (Negative) Urine Glucose (UA) (Negative) Urine Ketones (Negative) Urine Blood (Negative) Urine Nitrite (Negative) Urine Bilirubin (Negative) Urine Urobilinogen (Negative) Ur Leukocyte Esterase (Negative) Urine WBC (Auto) (0-5) /hpf Urine RBC (Auto) (0-4) /hpf U Hyaline Cast (Auto) (0-5) /lpf U Epithel Cells (Auto) (0-5) /lpf Urine Bacteria (Auto) (Negative) Granular Casts (0) /lpf RBC Casts (0) /lpf Urine Yeast Stool Occult Bld Scrn (Negative) Anaplasma Smear A. phagocytophilum DNA Lyme Disease IgG Ab (Negative) Lyme Disease IgM Ab (Negative) E. chaffeensis IgG Ab Pending E. chaffeensis IgM Ab Pending E.chaffeensis DNA (PCR) E. chaffeensis Interp Pending E. chaffeensis Comment Pending Blood Type Antibody Screen 06/23/19 06/23/19 Range/Units 20:57 20:57 WBC 2.23 L (4.8-10.8) K/uL RBC 4.68 (4.2-5.4) M/uL Hgb 14.8 (12.0-16.0) g/dL Hct 41.5 (37-47) % MCV 88.7 (80-100) fL MCH 31.6 (25-34) pg MCHC 35.7 (32-36) g/dL RDW Std Deviation 46.6 H (36.4-46.3) fL RDW Coeff of Susan 14.3 (11.5-14.5) % Plt Count 43 L (130-400) K/uL MPV (7.4-10.4) fL Immature Gran % (Auto) 0.9 % Neut % (Auto) 82.1 % Lymph % (Auto) 12.6 % Kane % (Auto) 3.6 % Eos % (Auto) 0.4 % Baso % (Auto) 0.4 % Immature Gran # (Auto) 0.02 (0.00-0.02) K/uL Neut # (Auto) 1.83 (1.4-6.5) K/uL Lymph # (Auto) 0.28 L (1.2-3.4) K/uL Kane # (Auto) 0.08 L (0.11-0.59) K/uL Eos # (Auto) 0.01 (0-0.5) K/uL Baso # (Auto) 0.01 (0-0.2) K/uL Dohle Bodies Platelet Estimate Decreased L (Normal) Giant Platelets Tear Drop Cells 1+ Echinocytes 1+ Peripher Smr Path Cons PT 11.0 (9.0-12.0) Seconds INR 1.1 (0.9-1.1) Sodium (136-145) mmol/L Potassium (3.5-5.1) mmol/L Chloride (98-107) mmol/L Carbon Dioxide (21-32) mmol/L Anion Gap (3-11) BUN (7-18) mg/dl Creatinine (0.6-1.2) mg/dl Est Cr Clr Drug Dosing ml/min Est GFR ( Amer) Est GFR (Non-Af Amer) BUN/Creatinine Ratio (10-20) Glucose (70-99) mg/dl Lactate (0.4-2.0) mmol/L Calcium (8.5-10.1) mg/dl Phosphorus (2.5-4.9) mg/dl Magnesium (1.8-2.4) mg/dl Total Bilirubin (0.2-1) mg/dl AST (15-37) U/L ALT (12-78) U/L Alkaline Phosphatase (45-117) U/L Troponin I (0-0.045) ng/ml Total Protein (6.4-8.2) gm/dl Albumin (3.4-5.0) gm/dl Globulin (2.5-4.0) gm/dl Albumin/Globulin Ratio (0.9-2) TSH (0.300-4.500) uIu/ml Urine Color Urine Appearance (Clear) Urine pH (4.5-7.5) Ur Specific [place] (1.000-1.030) Urine Protein (Negative) Urine Glucose (UA) (Negative) Urine Ketones (Negative) Urine Blood (Negative) Urine Nitrite (Negative) Urine Bilirubin (Negative) Urine Urobilinogen (Negative) Ur Leukocyte Esterase (Negative) Urine WBC (Auto) (0-5) /hpf Urine RBC (Auto) (0-4) /hpf U Hyaline Cast (Auto) (0-5) /lpf U Epithel Cells (Auto) (0-5) /lpf Urine Bacteria (Auto) (Negative) Granular Casts (0) /lpf RBC Casts (0) /lpf Urine Yeast Stool Occult Bld Scrn (Negative) Anaplasma Smear A. phagocytophilum DNA Lyme Disease IgG Ab (Negative) Lyme Disease IgM Ab (Negative) E. chaffeensis IgG Ab E. chaffeensis IgM Ab E.chaffeensis DNA (PCR) E. chaffeensis Interp E. chaffeensis Comment Blood Type Antibody Screen Medications Administered Current Inpatient Medications Albuterol (Ventolin Hfa) 1 - 2 puffs INH Q6H PRN PRN Reason: Shortness Of Breath Or Wheezin Stop: 07/24/19 02:39 Carbidopa/Levodopa (Sinemet Cr 50/200mg) 1 tab PO HS [facility] Stop: 07/24/19 20:59 Carbidopa/Levodopa (Sinemet 25/100 Mg) 2 tab PO [id number] [facility] Stop: 07/24/19 06:59 Last Admin: 06/24/19 11:47 Dose: 2 tab Documented by: Clindamycin Phosphate (Clindamycin Phosphate Top Soln) 1 ea TOP BID [facility] Stop: 07/24/19 12:59 Last Admin: 06/24/19 13:42 Dose: 1 ea Documented by: Dipyridamole/Aspirin (Aggrenox 200mg/25mg) 1 cap PO BID [facility] Stop: 07/24/19 08:59 Last Admin: 06/24/19 11:47 Dose: Not Given Documented by: Docusate Sodium (Colace) 100 mg PO BID PRN PRN Reason: Constipation Estrogens Conjugated (Premarin Vag) 1 appln PV SuTh@0900 [facility] Stop: 07/25/19 08:59 Famotidine (Pepcid) 40 mg PO QAM [facility] Stop: 07/24/19 08:59 Last Admin: 06/24/19 08:57 Dose: 40 mg Documented by: Gabapentin (Neurontin) 400 mg PO TID [facility] Stop: 07/24/19 08:59 Last Admin: 06/24/19 13:41 Dose: 400 mg Documented by: Glycerin (Glycerin Child) 1 supp IA DAILY PRN PRN Reason: Constipation Hydrocortisone (Proctozone Hc 2.5%) 1 appln EXT BID PRN PRN Reason: Hemorrhoids Stop: 07/24/19 02:39 Doxycycline Hyclate 100 mg/ (Dextrose) 110 mls @ 50 mls/hr IV Q12H [facility] Stop: 07/08/19 02:59 Last Infusion: 06/24/19 06:29 Dose: Infused Documented by: Lactated Ringer's (Lr) 1,000 mls @ 100 mls/hr IV .Q10H [facility] Stop: 07/24/19 13:29 Last Admin: 06/24/19 13:41 Dose: 100 mls/hr Documented by: Sodium Chloride (Nss) 250 mls @ 15 mls/hr IV .[id number] PRN PRN Reason: For Transfusion Stop: 07/24/19 13:16 Lactobacillus Acidophilus (Floranex) 1 tab PO BID [facility] Stop: 07/24/19 08:59 Last Admin: 06/24/19 08:58 Dose: 1 tab Documented by: Metronidazole (Metrogel) 1 appln TOP BID [facility] Stop: 07/04/19 08:59 Last Admin: 06/24/19 09:01 Dose: 1 appln Documented by: Miscellaneous (Order Awaiting Action) 1 ea N/A QS [facility] Stop: 07/24/19 07:59 Last Admin: 06/24/19 08:22 Dose: Not Given Documented by: Miscellaneous (Order Awaiting Action) 1 ea N/A QS [facility] Stop: 07/24/19 07:59 Last Admin: 06/24/19 08:22 Dose: Not Given Documented by: Mometasone Furoate (Elocon 0.1%) 1 appln EXT BID PRN PRN Reason: .IRRITATION Stop: 07/24/19 02:39 Montelukast Sodium (Singulair) 10 mg PO QAM [facility] Stop: 07/24/19 08:59 Last Admin: 06/24/19 08:57 Dose: 10 mg Documented by: Multi-Ingredient Cream (Hydrocerin) 1 appln TOP BID PRN PRN Reason: .SKIN IRRITATION Multivitamins/Minerals (Multivitamin W/ Minerals Tab) 1 tab PO DAILY [facility] Stop: 07/24/19 08:59 Last Admin: 06/24/19 08:57 Dose: 1 tab Documented by: Rasagiline 0.5 Mg: Non-Formulary Patient's Own Med 1 ea PO DAILY [facility] Stop: 07/24/19 12:59 Last Admin: 06/24/19 13:41 Dose: 0.5 mg Documented by: Nystatin (Mycostatin) 500,000 units PO BID [facility] Stop: 07/24/19 08:59 Last Admin: 06/24/19 08:58 Dose: 500,000 units Documented by: Pantoprazole Sodium (Protonix) 40 mg PO QPM [facility] Stop: 07/24/19 20:59 Senna/Docusate Sodium (Senokot S) 3 tab PO QAM [facility] Stop: 07/24/19 08:59 Last Admin: 06/24/19 08:56 Dose: 3 tab Documented by: Simethicone (Mylicon) 80 mg PO Q6H PRN PRN Reason: GAS RELIEF Stop: 07/24/19 02:39 Vitamin D (Vitamin D3) 7,000 units PO DAILY [facility] Stop: 07/24/19 08:59 Last Admin: 06/24/19 08:58 Dose: 7,000 units Documented by: PG Care Time/CCT Total # of Minutes Spent Total Time Spent with Patient: Total time spent is greater than 50% in coordination of care (as documented) at patient's floor/unit and/or counseling patient: Resident Activity Tracking Resident Involvement: Resident Care Provided Care Provided: Adult Hospital Medicine
--- NOTE | 2019-06-24 16:09 | History & Physical Report ---
Date of Service June 24, 2019 Assessment & Plan (1) Melena: Patient with a history of pancytopenia thought to be related to a recent tick bite. Given the thrombocytopenia I wonder if she is having oozing from the gastrointestinal mucosa. I would suggest beginning a Protonix drip as you are doing and agree with the platelet transfusion. Perhaps it would be best to avoid medication such as minocycline or doxycycline as these can be GI toxic. And then the patient's course overnight we could consider endoscopic evaluation for further evaluation of her symptoms. Should the symptoms of melena and blood count be stable overnight then I would hold on endoscopy given her comorbidities . Recommendations N.p.o. 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 Gastroneurology is consulted due to a question of melena which began yesterday. The patient reports that she had a large dark sticky stool prior to admission. She notes that she did have a small stool this morning which appeared to be improved from her standpoint. 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 He denies taking ibuprofen or other nonsteroidals. She denies having abdominal pain nausea vomiting fevers or chills. Patient denies having any hematemesis. Allergies Allergy/AdvReac Type Severity Reaction Status Date / Time propoxyphene Allergy Severe ITCHING,LLOYD Verified 06/24/19 00:01 H,DYSPNEA adhesive Allergy Intermediate ADHESIVE Verified 06/24/19 00:01 TAPE-DERMATITIS pseudoephedrine Allergy Intermediate FACIAL Verified 06/24/19 00:01 SWELLING, PHOTOSENSITIVITY bacitracin Allergy Mild REDNESS Verified 06/24/19 00:01 latex Allergy Mild BLISTER Verified 06/24/19 00:01 Home Medications Home Medications Medication Instructions Recorded Confirmed Type acetaminophen 500 mg tablet 500 mg PO DIRECTED PRN tab 06/14/19 06/24/19 History acyclovir 200 mg capsule 200 mg PO QAM cap 06/14/19 06/24/19 History albuterol sulfate HFA 90 1 - 2 puff INHALATION DIRECTED 06/14/19 06/24/19 History mcg/actuation aerosol inhaler PRN gm aspirin 25 mg-dipyridamole 200 mg 1 cap PO BID cap 06/14/19 06/24/19 History capsule,ext.release 12 hr multiphase carbidopa 25 mg-levodopa 100 mg 2 tab PO QID #240 tab 06/14/19 06/24/19 History tablet carbidopa ER 50 mg-levodopa 200 mg 1 tab PO HS #30 tab 06/14/19 06/24/19 History tablet,extended release chlorpheniramine 4 mg tablet 4 mg PO DAILY PRN tab 06/14/19 06/24/19 History clindamycin phosphate 1 % topical 1 applic TOPICAL BID #1 ml 06/14/19 06/24/19 History solution coenzyme Q10 200 mg capsule 200 mg PO QAM cap 06/14/19 06/24/19 History conjugated estrogens 0.625 mg/gram 1 applic PV 2XWK #1 gm 06/14/19 06/24/19 History vaginal cream denosumab 60 mg/mL subcutaneous 60 mg SUBCUT .Q 6 MONTHS ml 06/14/19 06/24/19 History syringe docusate sodium 100 mg tablet 100 mg PO BID PRN tab 06/14/19 06/24/19 History famotidine 40 mg tablet 40 mg PO QAM tab 06/14/19 06/24/19 History gabapentin 400 mg capsule 400 mg PO TID 30 Days #90 cap 06/14/19 06/24/19 Rx glycerin (child) 1 supp [place] DAILY PRN 06/14/19 06/24/19 History melatonin 5 mg tablet 15 mg PO HS tab 06/14/19 06/24/19 History metronidazole 0.75 % topical gel 1 applic TOPICAL BID #1 gm 06/14/19 06/24/19 History minocycline 50 mg capsule 50 mg PO DAILY PRN #30 cap 06/14/19 06/24/19 History mometasone 0.1 % topical cream 1 applic TOPICAL DIRECTED PRN 06/14/19 06/24/19 History #1 gm montelukast 10 mg tablet 10 mg PO QAM tab 06/14/19 06/24/19 History multivitamin,zi-cehv-rkiiqaod 1 tab PO DAILY 06/14/19 06/24/19 History tablet omeprazole 20 mg capsule,delayed 20 mg PO QPM #30 cap 06/14/19 06/24/19 History release rasagiline 0.5 mg tablet 0.5 mg PO DAILY #30 tab 06/14/19 06/24/19 History sennosides 8.6 mg-docusate sodium 3 tab PO QAM tab 06/14/19 06/24/19 History 50 mg tablet L. gasseri-B. bifidum-B longum 1 cap PO .2 HRS POST NYSTATIN 06/24/19 06/24/19 History [[facility]] Mg L-Theronate 450 mg PO HS 06/24/19 06/24/19 History F-Iggqoj-V-Cysteine 600 mg PO BID 06/24/19 06/24/19 History Reishi 376 mg PO BID 06/24/19 06/24/19 History acyclovir 1 applic TOPICAL DIRECTED PRN 06/24/19 06/24/19 History aspirin-sod bicarb-citric acid 1 ea PO DIRECTED PRN 06/24/19 06/24/19 History [Zuleima-[place] Extra Strength] cholecalciferol (vitamin D3) 2,000 unit PO DAILY 06/24/19 06/24/19 History [Vitamin D3] cholecalciferol (vitamin D3) 5,000 unit PO DAILY 06/24/19 06/24/19 History [Vitamin D3] glutamine (bulk) [L-Glutamine] 1 ea MISCELLANEOUS QPM 06/24/19 06/24/19 History lidocaine HCl 1 applic TOPICAL BID PRN 06/24/19 06/24/19 History nystatin 500,000 unit PO BID 06/24/19 06/24/19 History oregano oil 1,500 mg PO QAM 06/24/19 06/24/19 History phenyleph-min oil-petrolatum 1 applic [place] DIRECTED PRN 06/24/19 06/24/19 History [Preparation H] pramoxine [Sarna Sensitive] 1 applic TOPICAL BID PRN 06/24/19 06/24/19 History simethicone 80 mg PO DIRECTED PRN 06/24/19 06/24/19 History Past Med/Surg History Medical History Acid reflux (Chronic) Social History Preferred Language: Amharic Communication Ability: Effective 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 Required: No Beliefs That Will Affect Care: None Current Living Situation: Spouse Feels Safe at Home: Yes Safety Concerns: Feels Safe At This Time Smoking Status: Never smoker Hx Alcohol Use: No Hx Substance Use: No Review of Systems + body aches and + malaise; no sweats no diplopia no mouth lesions no change in sputum and no hemoptysis no chest pain with activity and no dyspnea at rest + change in stools; no bloating, no nausea, no hematemesis and no cramping no urinary frequency no radicular pain no falls no hopelessness no polydipsia + easy bleeding Physical Exam Constitutional: well developed Eyes: PERRL, conjunctivae normal, anicteric sclerae Neck: trachea midline, no thyromegaly Respiratory: normal respiratory effort; no respiratory distress Cardiovascular: Heart Sounds: + murmur Gastrointestinal (Abdomen): Inspection/Auscultation: normal bowel sounds; abdomen not distended Percussion/Palpation: abdomen soft; abdomen nontender Neurologic: Motor/Sensory: + tremor Results & Data Vital Signs (Past 12 Hours) Vital Signs Temp Pulse Pulse Resp BP BP BP 06/24/19 15:44 36.4 C L 63 16 109/52 L 06/24/19 15:25 36.3 C L 62 16 92/52 L 06/24/19 14:57 36.4 C L 60 16 101/59 L 06/24/19 11:19 36.8 C 66 16 90/48 L 06/24/19 07:33 37.6 C H 74 16 90/50 L 06/24/19 04:12 37.0 C 82 20 108/61 Pulse Ox 06/24/19 15:44 96 06/24/19 15:25 06/24/19 14:57 99 06/24/19 11:19 100 06/24/19 07:33 99 06/24/19 04:12 99 Laboratory Results Laboratory Results - last 24 hr 06/23/19 06/23/19 06/23/19 20:57 20:57 20:57 WBC 2.23 L RBC 4.68 Hgb 14.8 Hct 41.5 MCV 88.7 MCH 31.6 MCHC 35.7 RDW Std Deviation 46.6 H RDW Coeff of Susan 14.3 Plt Count 43 L MPV Immature Gran % (Auto) 0.9 Neut % (Auto) 82.1 Lymph % (Auto) 12.6 [place] % (Auto) 3.6 Eos % (Auto) 0.4 Baso % (Auto) 0.4 Immature Gran # (Auto) 0.02 Neut # (Auto) 1.83 Lymph # (Auto) 0.[address] [place] # (Auto) 0.08 L Eos # (Auto) 0.01 Baso # (Auto) 0.01 Dohle Bodies Platelet Estimate Decreased L Giant Platelets Tear Drop Cells 1+ Echinocytes 1+ Peripher Smr Path Cons PT 11.0 INR 1.1 Sodium 132 L Potassium 3.4 L Chloride 100 Carbon Dioxide 20 L Anion Gap 12.0 H BUN 82 H Creatinine 2.27 H Est Cr Clr Drug Dosing 13.5 Est GFR ( Amer) 22.4 Est GFR (Non-Af Amer) 19.3 BUN/Creatinine Ratio 36.0 H Glucose 120 H Lactate Calcium 8.1 L Phosphorus Magnesium 3.3 H Total Bilirubin 0.8 AST 260 H ALT 17 Alkaline Phosphatase 56 Troponin I 0.047 H* Total Protein 6.9 Albumin 3.2 L Globulin 3.7 Albumin/Globulin Ratio 0.9 TSH 1.170 Urine Color Urine Appearance Urine pH Ur Specific White Urine Protein Urine Glucose (UA) Urine Ketones Urine Blood Urine Nitrite Urine Bilirubin Urine Urobilinogen Ur Leukocyte Esterase Urine WBC (Auto) Urine RBC (Auto) U Hyaline Cast (Auto) U Epithel Cells (Auto) Urine Bacteria (Auto) Granular Casts RBC Casts Urine Yeast Stool Occult Bld Scrn Anaplasma Smear A. phagocytophilum DNA Lyme Disease IgG Ab Lyme Disease IgM Ab E. chaffeensis IgG Ab E. chaffeensis IgM Ab E.chaffeensis DNA (PCR) E. chaffeensis Interp E. chaffeensis Comment Blood Type Antibody Screen 06/23/19 06/23/19 06/23/19 20:57 20:57 20:57 WBC RBC Hgb Hct MCV MCH MCHC RDW Std Deviation RDW Coeff of Susan Plt Count MPV Immature Gran % (Auto) Neut % (Auto) Lymph % (Auto) [place] % (Auto) Eos % (Auto) Baso % (Auto) Immature Gran # (Auto) Neut # (Auto) Lymph # (Auto) [place] # (Auto) Eos # (Auto) Baso # (Auto) Dohle Bodies Platelet Estimate Giant Platelets Tear Drop Cells Echinocytes Peripher Smr Path Cons PT INR Sodium Potassium Chloride Carbon Dioxide Anion Gap BUN Creatinine Est Cr Clr Drug Dosing Est GFR ( Amer) Est GFR (Non-Af Amer) BUN/Creatinine Ratio Glucose Lactate 1.7 Calcium Phosphorus Magnesium Total Bilirubin AST ALT Alkaline Phosphatase Troponin I Total Protein Albumin Globulin Albumin/Globulin Ratio TSH Urine Color Urine Appearance Urine pH Ur Specific White Urine Protein Urine Glucose (UA) Urine Ketones Urine Blood Urine Nitrite Urine Bilirubin Urine Urobilinogen Ur Leukocyte Esterase Urine WBC (Auto) Urine RBC (Auto) U Hyaline Cast (Auto) U Epithel Cells (Auto) Urine Bacteria (Auto) Granular Casts RBC Casts Urine Yeast Stool Occult Bld Scrn Anaplasma Smear A. phagocytophilum DNA Lyme Disease IgG Ab Negative Lyme Disease IgM Ab Negative E. chaffeensis IgG Ab Pending E. chaffeensis IgM Ab Pending E.chaffeensis DNA (PCR) E. chaffeensis Interp Pending E. chaffeensis Comment Pending Blood Type Antibody Screen 06/23/19 06/24/19 06/24/19 Unknown 03:05 03:05 WBC 1.68 L RBC 3.70 L Hgb 11.4 L D Hct 32.6 L MCV 88.1 MCH 30.8 MCHC 35.0 RDW Std Deviation 46.0 RDW Coeff of Susan 14.1 Plt Count 33 L MPV 11.7 H Immature Gran % (Auto) 0.6 Neut % (Auto) 78.5 Lymph % (Auto) 15.5 [place] % (Auto) 4.2 Eos % (Auto) 0.0 Baso % (Auto) 1.2 Immature Gran # (Auto) 0.01 Neut # (Auto) 1.32 L Lymph # (Auto) 0.[address] [place] # (Auto) 0.07 L Eos # (Auto) 0.00 Baso # (Auto) 0.02 Dohle Bodies 1+ Platelet Estimate Giant Platelets 1+ Tear Drop Cells Echinocytes 1+ Peripher Smr Path Cons Pending PT INR Sodium Potassium Chloride Carbon Dioxide Anion Gap BUN Creatinine Est Cr Clr Drug Dosing Est GFR ( Amer) Est GFR (Non-Af Amer) BUN/Creatinine Ratio Glucose Lactate Calcium Phosphorus Magnesium Total Bilirubin AST ALT Alkaline Phosphatase Troponin I Total Protein Albumin Globulin Albumin/Globulin Ratio TSH Urine Color Yellow Urine Appearance Cloudy A Urine pH 5.0 Ur Specific White 1.022 Urine Protein 1+ H Urine Glucose (UA) Negative Urine Ketones Negative Urine Blood 1+ H Urine Nitrite Negative Urine Bilirubin Negative Urine Urobilinogen Negative Ur Leukocyte Esterase Negative Urine WBC (Auto) 1-5 Urine RBC (Auto) 0-4 U Hyaline Cast (Auto) 10-30 H U Epithel Cells (Auto) >30 H Urine Bacteria (Auto) Negative Granular Casts 5-10 H RBC Casts 1-5 H Urine Yeast Not Reportable Stool Occult Bld Scrn Anaplasma Smear See Comment A A. phagocytophilum DNA Pending Lyme Disease IgG Ab Lyme Disease IgM Ab E. chaffeensis IgG Ab E. chaffeensis IgM Ab E.chaffeensis DNA (PCR) Pending E. chaffeensis Interp E. chaffeensis Comment Blood Type Antibody Screen 06/24/19 06/24/19 06/24/19 03:05 08:15 08:26 WBC RBC Hgb Hct MCV MCH MCHC RDW Std Deviation RDW Coeff of Susan Plt Count MPV Immature Gran % (Auto) Neut % (Auto) Lymph % (Auto) [place] % (Auto) Eos % (Auto) Baso % (Auto) Immature Gran # (Auto) Neut # (Auto) Lymph # (Auto) [place] # (Auto) Eos # (Auto) Baso # (Auto) Dohle Bodies Platelet Estimate Giant Platelets Tear Drop Cells Echinocytes Peripher Smr Path Cons PT INR Sodium 137 Potassium 3.1 L Chloride 112 H Carbon Dioxide 15 L Anion Gap 10.0 BUN 69 H Creatinine 1.42 H D Est Cr Clr Drug Dosing 21.5 Est GFR ( Amer) 39.5 Est GFR (Non-Af Amer) 34.1 BUN/Creatinine Ratio 48.5 H Glucose 105 H Lactate Calcium 6.7 L D Phosphorus 2.4 L Magnesium 2.7 H Total Bilirubin 0.7 AST 191 H ALT 14 Alkaline Phosphatase 37 L Troponin I 0.046 H* Total Protein 5.2 L D Albumin 2.4 L Globulin 2.8 Albumin/Globulin Ratio 0.9 TSH Urine Color Urine Appearance Urine pH Ur Specific White Urine Protein Urine Glucose (UA) Urine Ketones Urine Blood Urine Nitrite Urine Bilirubin Urine Urobilinogen Ur Leukocyte Esterase Urine WBC (Auto) Urine RBC (Auto) U Hyaline Cast (Auto) U Epithel Cells (Auto) Urine Bacteria (Auto) Granular Casts RBC Casts Urine Yeast Stool Occult Bld Scrn Positive A Anaplasma Smear A. phagocytophilum DNA Lyme Disease IgG Ab Lyme Disease IgM Ab E. chaffeensis IgG Ab E. chaffeensis IgM Ab E.chaffeensis DNA (PCR) E. chaffeensis Interp E. chaffeensis Comment Blood Type Antibody Screen 06/24/19 06/24/19 14:01 14:01 WBC RBC Hgb 11.1 L Hct 32.3 L MCV MCH MCHC RDW Std Deviation RDW Coeff of Susan Plt Count MPV Immature Gran % (Auto) Neut % (Auto) Lymph % (Auto) [place] % (Auto) Eos % (Auto) Baso % (Auto) Immature Gran # (Auto) Neut # (Auto) Lymph # (Auto) [place] # (Auto) Eos # (Auto) Baso # (Auto) Dohle Bodies Platelet Estimate Giant Platelets Tear Drop Cells Echinocytes Peripher Smr Path Cons PT INR Sodium Potassium Chloride Carbon Dioxide Anion Gap BUN Creatinine Est Cr Clr Drug Dosing Est GFR ( Amer) Est GFR (Non-Af Amer) BUN/Creatinine Ratio Glucose Lactate Calcium Phosphorus Magnesium Total Bilirubin AST ALT Alkaline Phosphatase Troponin I Total Protein Albumin Globulin Albumin/Globulin Ratio TSH Urine Color Urine Appearance Urine pH Ur Specific White Urine Protein Urine Glucose (UA) Urine Ketones Urine Blood Urine Nitrite Urine Bilirubin Urine Urobilinogen Ur Leukocyte Esterase Urine WBC (Auto) Urine RBC (Auto) U Hyaline Cast (Auto) U Epithel Cells (Auto) Urine Bacteria (Auto) Granular Casts RBC Casts Urine Yeast Stool Occult Bld Scrn Anaplasma Smear A. phagocytophilum DNA Lyme Disease IgG Ab Lyme Disease IgM Ab E. chaffeensis IgG Ab E. chaffeensis IgM Ab E.chaffeensis DNA (PCR) E. chaffeensis Interp E. chaffeensis Comment Blood Type O Negative Antibody Screen NEGATIVE
[2019-06-24] MEDS: CARBIDOPA/LEVODOPA 50/200MG EXT REL TAB PO SCH (20:45)
[2019-06-24] MEDS ORDERED: GLUTAMINE MS SCH (21:00)
[2019-06-24] MEDS ORDERED: NON-FORMULARY MEDICATION (Melatonin 15 MG) PO SCH (21:00)
[2019-06-24] MEDS ORDERED: [UNRECOGNIZED DRUG - OTHER] PO SCH (21:00)
[2019-06-24] MEDS ORDERED: PANTOprazole 40 MG TAB PO SCH (21:00)
[2019-06-25] MEDS: LACTATED RINGER'S 1,000 ML IV SCH ×3 (00:48→18:14)
[2019-06-25] MEDS: DOXYCYCLINE HYCLATE 100 MG in DEXTROSE 5% 100 ML IV SCH ×2 (03:32→15:42)
[2019-06-25] MEDS: NYSTATIN 500,000 UNIT TAB PO SCH ×2 (08:06→20:01)
[2019-06-25] MEDS: MONTELUKAST SODIUM 10 MG TABLET PO SCH (08:06)
[2019-06-25] MEDS: DOCUSATE SODIUM/SENNA 50/8.6MG TAB PO SCH (08:06)
[2019-06-25] MEDS: GABAPENTIN 400 MG CAP PO SCH ×3 (08:07→20:02)
[2019-06-25] MEDS: LACTOBACILLUS ACIDOPHILUS (FLORANEX) TAB PO SCH ×2 (08:07→20:01)
[2019-06-25] MEDS: CHOLECALCIFEROL 1,000 UNITS TAB PO SCH (08:07)
[2019-06-25] MEDS: CEROVITE ADV FORMULA TAB PO SCH (08:07)
[2019-06-25] MEDS: CARBIDOPA/LEVODOPA 25/100MG TAB PO SCH ×4 (08:07→18:57)
[2019-06-25] MEDS: FAMOTIDINE 20 MG TAB PO SCH (08:07)
[2019-06-25] MEDS: RASAGILINE 0.5 MG PO SCH (08:08)
[2019-06-25] MEDS: CLINDAMYCIN PHOSPHATE TOPICAL SOLUTION TOP SCH ×2 (08:09→20:03)
[2019-06-25] MEDS: metroNIDAZOLE 0.75% TOPICAL GEL 45 GM TUBE TOP SCH ×2 (08:09→20:03)
[2019-06-25] MEDS: PANTOprazole 40 MG TAB PO SCH ×2 (08:12→20:02)
[2019-06-25 08:46] LABS: Hematocrit (blood only) 32.2 % (37-47); Hemoglobin 10.9 g/dL (12.0-16.0); Mean Corpuscular Hgb Conc 33.9 g/dL (32-36); Mean Platelet Volume 13.2 fL (7.4-10.4); Platelet Count 55 K/uL (130-400); RDW Coefficient of Variation 14.5 % (11.5-14.5); RDW Standard Deviation 47.5 fL (36.4-46.3); Red Blood Count 3.62 M/uL (4.2-5.4); White Blood Count 3.07 K/uL (4.8-10.8)
[2019-06-25 08:59] LABS: BUN Creatinine Ratio 37.1 (10-20); Calcium 7.6 mg/dl (8.5-10.1); Est GFR (African American) 69.5; Est GFR (Non-African American) 59.9; Magnesium 2.4 mg/dl (1.8-2.4); Potassium 3.6 mmol/L (3.5-5.1)
[2019-06-25] MEDS ORDERED: PREMARIN VAG CRM 14 APPLN/30 GM TUBE PV SCH (09:00)
[2019-06-25 09:24] LABS: ALC (manual) 1.34 K/uL (1.2-3.4); Basophils # (manual) 0.08 K/uL (0-0.2); Basophils % (manual) 2.6 %; Eosinophils # (manual) 0.05 K/uL (0-0.5); Eosinophils % (manual) 1.7 %; Giant Platelets 2+; Lymphocytes % (manual) 26.1 %; Monocytes # (manual) 0.13 K/uL (0.11-0.59); Monocytes % (manual) 4.3 %; Neutrophils % (manual) 47.9 %; Platelet Estimate Decreased (Normal); Reactive Lymphocytes # (manual) 0.53 K/uL
[2019-06-25] MEDS ORDERED: KETAMINE HCL INJ 50 MG/ML 10 ML VIAL ONE (09:49)
[2019-06-25] MEDS ORDERED: PROPOFOL IV EMULSION 10 MG/ML 20 ML VIAL IV ONE (09:49)
--- NOTE | 2019-06-25 09:49 | History & Physical Bridge Note ---
Date of Service June 25, 2019 History & Physical Bridge Note I have examined the patient, reviewed the History & Physical and in the interval since the performance of the History & Physical I have noted the following changes of clinical significance: no changes noted
--- NOTE | 2019-06-25 10:01 | Anesthesiology Consultation ---
Date of Service June 25, 2019 Assessment & Plan (1) Encounter for pre-operative examination: Chart Review Chart Review: Acceptable Risk for Surgery and Patient NOT seen in Pre Admission Testing Consults Requested none ASA [id number] Proposed Anesthesia Anesthesia Type: General History Surgery Operation Date: 06/25/19 13:00 Proposed Procedures p Endoscopic Ultrasonography Dl Mccullough Height/Weight Height: 5 ft 1 in Weight: 43.6 kg Allergies Allergy/AdvReac Type Severity Reaction Status Date / Time propoxyphene Allergy Severe ITCHING,LLOYD Verified 06/24/19 00:01 H,DYSPNEA adhesive Allergy Intermediate ADHESIVE Verified 06/24/19 00:01 TAPE-DERMATITIS pseudoephedrine Allergy Intermediate FACIAL Verified 06/24/19 00:01 SWELLING, PHOTOSENSITIVITY bacitracin Allergy Mild REDNESS Verified 06/24/19 00:01 latex Allergy Mild BLISTER Verified 06/24/19 00:01 Medications Home Medications Medication Instructions Recorded Confirmed Last Taken acetaminophen 500 mg tablet 500 mg PO DIRECTED PRN tab 06/14/19 06/24/19 Unknown acyclovir 200 mg capsule 200 mg PO QAM cap 06/14/19 06/24/19 06/23/19 albuterol sulfate HFA 90 1 - 2 puff INHALATION DIRECTED 06/14/19 06/24/19 Unknown mcg/actuation aerosol inhaler PRN gm aspirin 25 mg-dipyridamole 200 mg 1 cap PO BID cap 06/14/19 06/24/19 06/23/19 capsule,ext.release 12 hr multiphase carbidopa 25 mg-levodopa 100 mg 2 tab PO QID #240 tab 06/14/19 06/24/19 06/23/19 tablet carbidopa ER 50 mg-levodopa 200 mg 1 tab PO HS #30 tab 06/14/19 06/24/19 06/22/19 tablet,extended release chlorpheniramine 4 mg tablet 4 mg PO DAILY PRN tab 06/14/19 06/24/19 Unknown clindamycin phosphate 1 % topical 1 applic TOPICAL BID #1 ml 06/14/19 06/24/19 06/23/19 solution coenzyme Q10 200 mg capsule 200 mg PO QAM cap 06/14/19 06/24/19 06/23/19 conjugated estrogens 0.625 mg/gram 1 applic PV 2XWK #1 gm 06/14/19 06/24/19 Unknown vaginal cream denosumab 60 mg/mL subcutaneous 60 mg SUBCUT .Q 6 MONTHS ml 06/14/19 06/24/19 Unknown syringe docusate sodium 100 mg tablet 100 mg PO BID PRN tab 06/14/19 06/24/19 Unknown famotidine 40 mg tablet 40 mg PO QAM tab 06/14/19 06/24/19 06/23/19 gabapentin 400 mg capsule 400 mg PO TID 30 Days #90 cap 06/14/19 06/24/19 06/23/19 14:00 2 DOSES TODAY glycerin (child) 1 supp [place] DAILY PRN 06/14/19 06/24/19 Unknown melatonin 5 mg tablet 15 mg PO HS tab 06/14/19 06/24/19 06/22/19 metronidazole 0.75 % topical gel 1 applic TOPICAL BID #1 gm 06/14/19 06/24/19 06/23/19 minocycline 50 mg capsule 50 mg PO DAILY PRN #30 cap 06/14/19 06/24/19 Unknown mometasone 0.1 % topical cream 1 applic TOPICAL DIRECTED PRN 06/14/19 06/24/19 Unknown #1 gm montelukast 10 mg tablet 10 mg PO QAM tab 06/14/19 06/24/19 06/23/19 multivitamin,hv-cgme-pgkvotha 1 tab PO DAILY 06/14/19 06/24/19 06/23/19 tablet omeprazole 20 mg capsule,delayed 20 mg PO QPM #30 cap 06/14/19 06/24/19 06/23/19 release rasagiline 0.5 mg tablet 0.5 mg PO DAILY #30 tab 06/14/19 06/24/19 06/23/19 sennosides 8.6 mg-docusate sodium 3 tab PO QAM tab 06/14/19 06/24/19 06/23/19 50 mg tablet L. gasseri-B. bifidum-B longum 1 cap PO .2 HRS POST NYSTATIN 06/24/19 06/24/19 06/23/19 [[facility]] Mg L-Theronate 450 mg PO HS 06/24/19 06/24/19 06/23/19 I-Nnlwhz-S-Cysteine 600 mg PO BID 06/24/19 06/24/19 06/23/19 Reishi 376 mg PO BID 06/24/19 06/24/19 06/23/19 acyclovir 1 applic TOPICAL DIRECTED PRN 06/24/19 06/24/19 Unknown aspirin-sod bicarb-citric acid 1 ea PO DIRECTED PRN 06/24/19 06/24/19 Unknown [Zuleima-[place] Extra Strength] cholecalciferol (vitamin D3) 2,000 unit PO DAILY 06/24/19 06/24/19 06/23/19 [Vitamin D3] cholecalciferol (vitamin D3) 5,000 unit PO DAILY 06/24/19 06/24/19 06/23/19 [Vitamin D3] glutamine (bulk) [L-Glutamine] 1 ea MISCELLANEOUS QPM 06/24/19 06/24/19 06/23/19 lidocaine HCl 1 applic TOPICAL BID PRN 06/24/19 06/24/19 Unknown nystatin 500,000 unit PO BID 06/24/19 06/24/19 06/23/19 oregano oil 1,500 mg PO QAM 06/24/19 06/24/19 06/23/19 phenyleph-min oil-petrolatum 1 applic [place] DIRECTED PRN 06/24/19 06/24/19 Unknown [Preparation H] pramoxine [Sarna Sensitive] 1 applic TOPICAL BID PRN 06/24/19 06/24/19 Unknown simethicone 80 mg PO DIRECTED PRN 06/24/19 06/24/19 Unknown Active Medications Generic Name Dose Route Start Last Admin Trade Name Freq PRN Reason Stop Dose Admin Carbidopa/Levodopa 1 tab 06/24/19 21:00 06/24/19 20:45 Sinemet Cr 50/200mg PO 07/24/19 20:59 1 tab HS NINA Administration Carbidopa/Levodopa 2 tab 06/24/19 07:00 06/25/19 08:07 Sinemet 25/100 Mg PO 07/24/19 06:59 2 tab [id number] NINA Administration Clindamycin Phosphate 1 ea 06/24/19 13:00 06/25/19 08:09 Clindamycin Phosphate Top Soln TOP 07/24/19 12:59 1 ea BID NINA Administration Dipyridamole/Aspirin 1 cap 06/24/19 09:00 06/24/19 11:47 Aggrenox 200mg/25mg PO 07/24/19 08:59 Not Given BID NINA Estrogens Conjugated 1 appln 06/25/19 09:00 06/25/19 08:08 Premarin Vag PV 07/25/19 08:59 1 appln SuTh@0900 NINA Administration Famotidine 40 mg 06/24/19 09:00 06/25/19 08:07 Pepcid PO 07/24/19 08:59 40 mg QAM NINA Administration Gabapentin 400 mg 06/24/19 09:00 06/25/19 08:07 Neurontin PO 07/24/19 08:59 400 mg TID NINA Administration Doxycycline Hyclate 100 mg/ 110 mls @ 50 mls/hr 06/24/19 03:00 06/25/19 05:49 Dextrose IV 07/08/19 02:59 Infused Q12H NINA Infusion Lactated Ringer's 1,000 mls @ 100 mls/hr 06/24/19 13:30 06/25/19 00:48 Lr IV 07/24/19 13:29 100 mls/hr .Q10H NINA Administration Lactobacillus Acidophilus 1 tab 06/24/19 09:00 06/25/19 08:07 Floranex PO 07/24/19 08:59 1 tab BID NINA Administration Metronidazole 1 appln 06/24/19 09:00 06/25/19 08:09 Metrogel TOP 07/04/19 08:59 1 appln BID NINA Administration Miscellaneous 1 ea 06/24/19 08:00 06/25/19 08:14 Order Awaiting Action N/A 07/24/19 07:59 Not Given QS NINA Miscellaneous 1 ea 06/24/19 08:00 06/25/19 08:14 Order Awaiting Action N/A 07/24/19 07:59 Not Given QS NINA Montelukast Sodium 10 mg 06/24/19 09:00 06/25/19 08:06 Singulair PO 07/24/19 08:59 10 mg QAM NINA Administration Multivitamins/Minerals 1 tab 06/24/19 09:00 06/25/19 08:07 Multivitamin W/ Minerals Tab PO 07/24/19 08:59 1 tab DAILY NINA Administration Rasagiline 0.5 M ea 06/24/19 13:00 06/25/19 08:08 Non-Formulary PO 07/24/19 12:59 0.5 mg Patient's Own Med DAILY NINA Administration Nystatin 500,000 units 06/24/19 09:00 06/25/19 08:06 Mycostatin PO 07/24/19 08:59 500,000 units BID NINA Administration Pantoprazole Sodium 40 mg 06/25/19 09:00 06/25/19 08:12 Protonix PO 07/25/19 08:59 40 mg BID NINA Administration Senna/Docusate Sodium 3 tab 06/24/19 09:00 06/25/19 08:06 Senokot S PO 07/24/19 08:59 3 tab QAM NINA Administration Vitamin D 7,000 units 06/24/19 09:00 06/25/19 08:07 Vitamin D3 PO 07/24/19 08:59 7,000 units DAILY NINA Administration NPO Date Last Intake of Fluids: 06/25/19 Time Last Intake of Fluids: 08:00 Last Intake of Fluids Comment: sips with pills Date Last Intake of Solids: 06/24/19 Time Last Intake of Solids: 12:00 Past Medical History Medical History Acid reflux (Chronic) Social History Smoking Status: Never smoker Hx Alcohol Use: No Hx Substance Use: No Physical Exam Vital Signs Last Vital Signs Temp 36.6 C 06/25/19 07:25 Pulse 64 06/25/19 07:25 Resp 18 06/25/19 07:25 BP 105/46 L 06/25/19 07:25 Pulse Ox 94 06/25/19 07:25 Testing Laboratory Results 06/25/19 08:01 06/25/19 08:01 PT 11.0 Seconds (9.0-12.0) 06/23/19 20:57 INR 1.1 (0.9-1.1) 06/23/19 20:57 Urine Color Yellow 06/23/19 Unknown Urine Appearance Cloudy (Clear) A 06/23/19 Unknown Urine pH 5.0 (4.5-7.5) 06/23/19 Unknown Ur Specific [place] 1.022 (1.000-1.030) 06/23/19 Unknown Urine Protein 1+ (Negative) H 06/23/19 Unknown Urine Glucose (UA) Negative (Negative) 06/23/19 Unknown Urine Ketones Negative (Negative) 06/23/19 Unknown Urine Nitrite Negative (Negative) 06/23/19 Unknown Ur Leukocyte Esterase Negative (Negative) 06/23/19 Unknown Urine WBC (Auto) 1-5 /hpf (0-5) 06/23/19 Unknown Urine RBC (Auto) 0-4 /hpf (0-4) 06/23/19 Unknown U Hyaline Cast (Auto) 10-30 /lpf (0-5) H 06/23/19 Unknown U Epithel Cells (Auto) >30 /lpf (0-5) H 06/23/19 Unknown Urine Bacteria (Auto) Negative (Negative) 06/23/19 Unknown Blood Type O Negative 06/24/19 14:01 Antibody Screen NEGATIVE 06/24/19 14:01
[2019-06-25] MEDS ORDERED: ATROPINE SULFATE 0.1 MG/ML 10ML SYR IV PRN (10:03)
[2019-06-25] MEDS ORDERED: ePHEDrine sulfate 50 MG/ML AMP IV PRN (10:03)
--- NOTE | 2019-06-25 10:23 | Post Operative Brief Note ---
Immediate Post Op Note v1 Date of Surgery June 25, 2019 Pre & Post Diagnosis Operation Date: 06/25/19 13:00 Pre-Op Diagnosis: Melena Post-Op Diagnosis: Esophageal ulcer Procedure Operation Date: 06/25/19 13:00 Actual Procedures p Endoscopic Ultrasonography Upper(Not Applicable) - Glenn Mccullough Surgeon Glenn Mccullough Sock Turner none Estimated Blood Loss 0 Findings Consistent with Post-Op Diagnosis
--- NOTE | 2019-06-25 10:23 | GI REPORT ---
Patient Name: Pauly Burnette Procedure Date: 06/25/2019 10:07 AM Date of : 1935 Admit Type: Inpatient Age: 84 Gender: Female Attending MD: Glenn Mccullough DO Procedure: Upper GI endoscopy Providers: Glenn Mccullough DO Referring MD: Siria Christine Indications: Melena Medicines: Monitored Anesthesia Care Complications: No immediate complications. Estimated blood loss: Minimal. Estimated Blood Loss: Estimated blood loss was minimal. Procedure: Pre-Anesthesia Assessment: - Prior to the procedure, a History and Physical was performed, and patient medications, allergies and sensitivities were reviewed. The patient's tolerance of previous anesthesia was reviewed. - The risks and benefits of the procedure and the sedation options and risks were discussed with the patient. All questions were answered and informed consent was obtained. - Patient identification and proposed procedure were verified prior to the procedure by the physician, the nurse and the pipe coverer. The procedure was verified in the procedure room. - Pre-procedure physical examination revealed no contraindications to sedation. - ASA Grade Assessment: III - A patient with severe systemic disease. - After reviewing the risks and benefits, the patient was deemed in satisfactory condition to undergo the procedure. - The anesthesia plan was to use monitored anesthesia care (MAC). - Immediately prior to administration of medications, the patient was re-assessed for adequacy to receive sedatives. - The heart rate, respiratory rate, oxygen saturations, blood pressure, adequacy of pulmonary ventilation, and response to care were monitored throughout the procedure. - The physical status of the patient was re-assessed after the procedure. After obtaining informed consent, the endoscope was passed under direct vision. Throughout the procedure, the patient's blood pressure, pulse, and oxygen saturations were monitored continuously. The Scope was introduced through the mouth, and advanced to the third part of duodenum. The upper GI endoscopy was accomplished without difficulty. The patient tolerated the procedure well. Findings: One superficial esophageal ulcer with no bleeding and stigmata of recent bleeding was found 37 cm from the incisors. The lesion was 5 mm in largest dimension. Coagulation for hemostasis using bipolar probe was successful. Estimated blood loss was minimal. A small hiatal hernia was found. The proximal extent of the gastric folds (end of tubular esophagus) was 37 cm from the incisors. The hiatal narrowing was 39 cm from the incisors. Diffuse mild inflammation characterized by congestion (edema), erythema and granularity was found in the entire examined stomach. The examined duodenum was normal. Impression: - Non-bleeding esophageal ulcer with stigmata or recent hemorrhage. Treated with bipolar cautery. This is likely related to a pill getting caught in the region - Small hiatal hernia. - Gastritis. - Normal examined duodenum. - No specimens collected. Recommendation: - [facility]. - Use Protonix (pantoprazole) 40 mg PO BID for 4 weeks then 1 time daily. - Use sucralfate suspension 1 gram PO QID for 2 weeks. Glenn Mccullough D.O. Glenn Mccullough, 06/25/2019 10:22:40 AM This report has been signed electronically. Note Initiated On: 06/25/2019 10:07 AM Number of Addenda: 0 I attest to the content of the Intraoperative Record and orders documented therein, exceptions below {[id number]}
--- NOTE | 2019-06-25 10:40 | Communication Note ---
Date of Service: June 25, 2019 The patient underwent upper endoscopy today. It was notable for an esophageal ulcer with stigmata of recent hemorrhage. This was treated with cautery therapy. The ulceration was most likely result of a pill impaction from either minocycline or perhaps tetracycline. Recommendations Carafate slurry 4 times daily for 2 weeks Protonix 40 mill grams twice daily for 4 weeks then 1 time daily thereafter Follow-up per Dr. Isaac her normal core feeder
--- NOTE | 2019-06-25 10:47 | Anesthesiology Progress Note ---
Date of Service June 25, 2019 Anesthesia Post Procedure Vital Signs Vital Signs: Temp Pulse Pulse Pulse Resp BP BP 06/25/19 10:45 36.4 C L 65 14 06/25/19 10:35 62 14 06/25/19 10:25 36.6 C 61 14 06/25/19 07:25 36.6 C 64 18 06/25/19 03:30 36.6 C 62 16 106/51 L 06/24/19 23:00 36.4 C L 62 17 06/24/19 19:15 36.3 C L 76 18 06/24/19 16:37 36.3 C L 69 18 123/65 06/24/19 15:59 36.6 C 63 18 127/69 06/24/19 15:44 36.4 C L 63 16 109/52 L 06/24/19 15:28 66 06/24/19 15:25 36.3 C L 62 16 92/52 L 06/24/19 14:57 36.4 C L 60 16 06/24/19 11:19 36.8 C 66 16 BP Pulse Ox 06/25/19 10:45 92/50 L 99 06/25/19 10:35 95/46 L 100 06/25/19 10:25 110/48 L 100 06/25/19 07:25 105/46 L 94 06/25/19 03:30 99 06/24/19 23:00 105/62 100 06/24/19 19:15 108/61 98 06/24/19 16:37 96 06/24/19 15:59 97 06/24/19 15:44 96 06/24/19 15:28 06/24/19 15:25 06/24/19 14:57 101/59 L 99 06/24/19 11:19 90/48 L 100 Pain Intensity Abdomen: Pain Intensity: 1 Transfer of Care Handoff Completed per policy Notes Mental Status: alert / awake / arousable Patient Amnestic to Procedure: Yes Nausea / Vomiting: adequately controlled Pain: adequately controlled Airway Patency, RR, SpO2: stable & adequate BP & HR: stable & adequate Hydration State: stable & adequate Anesthetic Complications: no major complications apparent and Pt Satisfied with anesthetic care
--- NOTE | 2019-06-25 11:25 | Family Medicine Progress Note ---
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 Concern for anaplasmosis: Potential tick bite around 26Aug. Admit labs notable for CBC issues (as noted below) as well as mild AST elevation (improving). Negative for Lyme. 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 Erhlichiosis labs pending. In ED, given single doses of cefepime and ceftriaxone. 07Sep began doxycycline. Leukopenia, thrombocytopenia: Lowest WBC 1.68, improved to 3. No noted fevers. Lowest platelets 33, up to 55 s/p 07Sep one unit transfusion. Thought to be related to suspected tickborne illness as above. Acute blood loss Anemia, GI bleed: Noted melanotic stools and drop in Hb as inpatient. Patient is relatively asymptomatic. [facility] cecetomy in 2006 for colon mass. Held her Aggrenox. Consulted GI (see related note) who recommended Protonix drip and discontinuation of minocycline as well as doxycycline. 08Sep upper endoscopy showed a nonbleeding esophageal ulcer which was treated. Recommended Protonix BID for four weeks and sucralfate QID for two weeks. - Given protonix IV shortage, placed on protonix 40 mg PO BID. Held home minocycline. Kept doxy to treat the anaplasmosis. Recent fall, leg pain: 05Sep mechanical fall onto carpet without LOC or related pain. TSH normal. Low albumin. Admit CT head and pCXR were non-acute. BLE Doppler exams without evidence of DVT. UA is dirty specimen, with UCx pending (and UTI-related asymptomatic). Lab issues: - Acute kidney injury: Admit Cr 2.27 and BUN 82, resolved with IVF. Likely pre- renal. Monitoring. - Hypokalemia: Potassium down to 3.1. Replaced, monitoring. - Hypermagnesemia: Admit Mg 3.3. Given IVF, improving. Monitoring. - Elevated troponin: Admit troponin 0.047 with serial was rechecked near identical. EKG is NSR 90 with normal intervals and no acute ST-T wave changes. Never any chest pain. Monitoring. Ongoing medical issues: - Parkinson's disease: Continue home carbidopa levodopa, gabapentin, rasagiline. - Constipation: Continue senna and simethicone as needed. - Asthma, allergies: Continue home montelukast - Acne: Held home minocycline. - GERD: Continue home omeprazole and famotidine. - Osteoporosis: On Prolia at home. Code status: Per patient, she has pre-existing DNR/DNI wishes with associated living well. Diet: Resume normal diet. DVT prophy: SCDs. Held chemical prophylaxis due to concerns for GI bleed. PT/OT: Ordered. Disbo: Admitted to [facility] with telemetry. At baseline lives at home with her . (2) Leukopenia: (3) Thrombocytopenia: (4) Anemia: (5) GI bleed: (6) Fall: (7) Leg pain: (8) Acute kidney injury: (9) Hypokalemia: (10) Hypermagnesemia: (11) Elevated troponin: (12) Parkinson disease: (13) Constipation: (14) Asthma: (15) Acne: (16) GERD (gastroesophageal reflux disease): (17) Osteoporosis: Supervising Physician Co-Signing Physician Notes Resident Physician Supervision Note: I independently interviewed and examined the patient and verified the li history and physical, reviewed labs and image studies, discussed the case with the resident Dr. Gonzalez and agree with the findings and care plan. Subjective Found patient resting very comfortably this morning, reading the newspaper. She says she thinks she had two very small melanotic stools yesterday but none this morning. Otherwise she says her abdomen feels about the same as yesterday, in that it really is not so bothersome but is slightly uncomfortable. Continues to deny any urinary symptoms, chest pain, any ongoing shortness of breath, or other acute concerns. Overall, she says her fatigue continues to greatly improve but she is not quite yet at baseline. Review of Systems Review of Systems: ROS per HPI. Physical Exam Physical Exam: General Appearance: Awake, alert & oriented, pleasantly conversational, comfortable in general, NAD. Thin habitus. CV: +S1S2 RRR, no murmur. Pulm: Clear to auscultation throughout. Abdomen: +BS, soft, non-distended. Positive subjective > objective generalized very mild tenderness throughout abdomen. Well-healed sub-umbilical midline surgical incision. Extremities: No pedal edema or calf tenderness. Moving all extremities naturally and easily. On the left inner thigh there is an approximately 1 cm relatively faint area of erythema with a central punctate lesion consistent with prior insect bite. This area is perhaps slightly less erythematous than yeste rday (07Sep). Neuro: No gross neuro deficits. Results & Data Vital Signs (Past 12 Hours) Vital Signs Temp Pulse Pulse Resp BP BP Pulse Ox 06/25/19 11:17 36.4 C L 60 19 98/57 L 100 06/25/19 11:12 36.4 C L 62 92/48 L 98 06/25/19 10:45 36.4 C L 65 14 92/50 L 99 06/25/19 10:35 62 14 95/46 L 100 06/25/19 10:25 36.6 C 61 14 110/48 L 100 06/25/19 07:25 36.6 C 64 18 105/46 L 94 06/25/19 03:30 36.6 C 62 16 106/51 L 99 Laboratory Results 06/25/19 06/25/19 06/24/19 Range/Units 08:01 08:01 14:01 WBC 3.07 L (4.8-10.8) K/uL RBC 3.62 L (4.2-5.4) M/uL Hgb 10.9 L (12.0-16.0) g/dL Hct 32.2 L (37-47) % MCV 89.0 (80-100) fL MCH 30.1 (25-34) pg MCHC 33.9 (32-36) g/dL RDW Std Deviation 47.5 H (36.4-46.3) fL RDW Coeff of Susan 14.5 (11.5-14.5) % Plt Count 55 L D (130-400) K/uL MPV 13.2 H (7.4-10.4) fL Neutrophils % (Manual) 47.9 % Lymphocytes % (Manual) 26.1 % Reactive Lymphs % (Man) 17.4 % Monocytes % (Manual) 4.3 % Eosinophils % (Manual) 1.7 % Basophils % (Manual) 2.6 % Neutrophils # (Manual) 1.47 (1.4-6.5) K/uL Total Absolute Neuts 1.47 (1.4-6.5) K/uL Lymphocytes # (Manual) 0.80 L (1.2-3.4) K/uL Reactive Lymphs # 0.53 K/uL Total Abs Lymphocytes 1.34 (1.2-3.4) K/uL Monocytes # (Manual) 0.13 (0.11-0.59) K/uL Eosinophils # (Manual) 0.05 (0-0.5) K/uL Basophils # (Manual) 0.08 (0-0.2) K/uL Platelet Estimate Decreased L (Normal) Giant Platelets 2+ Sodium 143 (136-145) mmol/L Potassium 3.6 D (3.5-5.1) mmol/L Chloride 116 H (98-107) mmol/L Carbon Dioxide 19 L (21-32) mmol/L Anion Gap 8.0 (3-11) BUN 33 H D (7-18) mg/dl Creatinine 0.89 D (0.6-1.2) mg/dl Est Cr Clr Drug Dosing 33.0 ml/min Est GFR ( Amer) 69.5 Est GFR (Non-Af Amer) 59.9 BUN/Creatinine Ratio 37.1 H (10-20) Glucose 72 (70-99) mg/dl Calcium 7.6 L (8.5-10.1) mg/dl Magnesium 2.4 (1.8-2.4) mg/dl Blood Type O Negative Antibody Screen NEGATIVE 06/24/19 Range/Units 14:01 WBC (4.8-10.8) K/uL RBC (4.2-5.4) M/uL Hgb 11.1 L (12.0-16.0) g/dL Hct 32.3 L (37-47) % MCV (80-100) fL MCH (25-34) pg MCHC (32-36) g/dL RDW Std Deviation (36.4-46.3) fL RDW Coeff of Susan (11.5-14.5) % Plt Count (130-400) K/uL MPV (7.4-10.4) fL Neutrophils % (Manual) % Lymphocytes % (Manual) % Reactive Lymphs % (Man) % Monocytes % (Manual) % Eosinophils % (Manual) % Basophils % (Manual) % Neutrophils # (Manual) (1.4-6.5) K/uL Total Absolute Neuts (1.4-6.5) K/uL Lymphocytes # (Manual) (1.2-3.4) K/uL Reactive Lymphs # K/uL Total Abs Lymphocytes (1.2-3.4) K/uL Monocytes # (Manual) (0.11-0.59) K/uL Eosinophils # (Manual) (0-0.5) K/uL Basophils # (Manual) (0-0.2) K/uL Platelet Estimate (Normal) Giant Platelets Sodium (136-145) mmol/L Potassium (3.5-5.1) mmol/L Chloride (98-107) mmol/L Carbon Dioxide (21-32) mmol/L Anion Gap (3-11) BUN (7-18) mg/dl Creatinine (0.6-1.2) mg/dl Est Cr Clr Drug Dosing ml/min Est GFR ( Amer) Est GFR (Non-Af Amer) BUN/Creatinine Ratio (10-20) Glucose (70-99) mg/dl Calcium (8.5-10.1) mg/dl Magnesium (1.8-2.4) mg/dl Blood Type Antibody Screen Medications Administered Current Inpatient Medications Albuterol (Ventolin Hfa) 1 - 2 puffs INH Q6H PRN PRN Reason: Shortness Of Breath Or Wheezin Stop: 07/24/19 02:39 Carbidopa/Levodopa (Sinemet Cr 50/200mg) 1 tab PO HS NINA Stop: 07/24/19 20:59 Last Admin: 06/24/19 20:45 Dose: 1 tab Documented by: Carbidopa/Levodopa (Sinemet 25/100 Mg) 2 tab PO 4XDQ4H NINA Stop: 07/24/19 06:59 Last Admin: 06/25/19 11:22 Dose: 2 tab Documented by: Clindamycin Phosphate (Clindamycin Phosphate Top Soln) 1 ea TOP BID NINA Stop: 07/24/19 12:59 Last Admin: 06/25/19 08:09 Dose: 1 ea Documented by: Dipyridamole/Aspirin (Aggrenox 200mg/25mg) 1 cap PO BID NINA Stop: 07/24/19 08:59 Last Admin: 06/24/19 11:47 Dose: Not Given Documented by: Docusate Sodium (Colace) 100 mg PO BID PRN PRN Reason: Constipation Estrogens Conjugated (Premarin Vag) 1 appln PV SuTh@0900 NINA Stop: 07/25/19 08:59 Last Admin: 06/25/19 08:08 Dose: 1 appln Documented by: Gabapentin (Neurontin) 400 mg PO TID NINA Stop: 07/24/19 08:59 Last Admin: 06/25/19 08:07 Dose: 400 mg Documented by: Glycerin (Glycerin Child) 1 supp NC DAILY PRN PRN Reason: Constipation Hydrocortisone (Proctozone Hc 2.5%) 1 appln EXT BID PRN PRN Reason: Hemorrhoids Stop: 07/24/19 02:39 Doxycycline Hyclate 100 mg/ (Dextrose) 110 mls @ 50 mls/hr IV Q12H [facility] Stop: 07/08/19 02:59 Last Infusion: 06/25/19 05:49 Dose: Infused Documented by: Lactated Ringer's (Lr) 1,000 mls @ 100 mls/hr IV .Q10H [facility] Stop: 07/24/19 13:29 Last Admin: 06/25/19 00:48 Dose: 100 mls/hr Documented by: Sodium Chloride (Nss) 250 mls @ 15 mls/hr IV .[id number] PRN PRN Reason: For Transfusion Stop: 07/24/19 13:16 Lactobacillus Acidophilus (Floranex) 1 tab PO BID [facility] Stop: 07/24/19 08:59 Last Admin: 06/25/19 08:07 Dose: 1 tab Documented by: Metronidazole (Metrogel) 1 appln TOP BID [facility] Stop: 07/04/19 08:59 Last Admin: 06/25/19 08:09 Dose: 1 appln Documented by: Miscellaneous (Order Awaiting Action) 1 ea N/A QS [facility] Stop: 07/24/19 07:59 Last Admin: 06/25/19 08:14 Dose: Not Given Documented by: Miscellaneous (Order Awaiting Action) 1 ea N/A QS [facility] Stop: 07/24/19 07:59 Last Admin: 06/25/19 08:14 Dose: Not Given Documented by: Mometasone Furoate (Elocon 0.1%) 1 appln EXT BID PRN PRN Reason: .IRRITATION Stop: 07/24/19 02:39 Montelukast Sodium (Singulair) 10 mg PO QAM NINA Stop: 07/24/19 08:59 Last Admin: 06/25/19 08:06 Dose: 10 mg Documented by: Multi-Ingredient Cream (Hydrocerin) 1 appln TOP BID PRN PRN Reason: .SKIN IRRITATION Multivitamins/Minerals (Multivitamin W/ Minerals Tab) 1 tab PO DAILY NINA Stop: 07/24/19 08:59 Last Admin: 06/25/19 08:07 Dose: 1 tab Documented by: Rasagiline 0.5 Mg: Non-Formulary Patient's Own Med 1 ea PO DAILY NINA Stop: 07/24/19 12:59 Last Admin: 06/25/19 08:08 Dose: 0.5 mg Documented by: Nystatin (Mycostatin) 500,000 units PO BID NINA Stop: 07/24/19 08:59 Last Admin: 06/25/19 08:06 Dose: 500,000 units Documented by: Pantoprazole Sodium (Protonix) 40 mg PO BID NINA Stop: 07/25/19 08:59 Last Admin: 06/25/19 08:12 Dose: 40 mg Documented by: Senna/Docusate Sodium (Senokot S) 3 tab PO QAM NINA Stop: 07/24/19 08:59 Last Admin: 06/25/19 08:06 Dose: 3 tab Documented by: Simethicone (Mylicon) 80 mg PO Q6H PRN PRN Reason: GAS RELIEF Stop: 07/24/19 02:39 Sucralfate (Carafate) 1 gm PO QID NINA Stop: 07/25/19 12:59 Vitamin D (Vitamin D3) 7,000 units PO DAILY NINA Stop: 07/24/19 08:59 Last Admin: 06/25/19 08:07 Dose: 7,000 units Documented by: PG Care Time/CCT Total # of Minutes Spent Total Time Spent with Patient: Total time spent is greater than 50% in coordination of care (as documented) at patient's floor/unit and/or counseling patient: Resident Activity Tracking Resident Involvement: Resident Care Provided Care Provided: Adult Hospital Medicine
[2019-06-25] MEDS: SUCRALFATE 1 GM/10 ML UDC PO SCH ×3 (12:41→20:00)
[2019-06-25] MEDS ORDERED: NURSING DECISION MEDICATION ONE (14:11)
[2019-06-25] MEDS: DIPYRIDAMOLE/ASPIRIN CAP PO SCH (19:59)
[2019-06-25] MEDS: CARBIDOPA/LEVODOPA 50/200MG EXT REL TAB PO SCH (20:01)
[2019-06-26] MEDS: DOXYCYCLINE HYCLATE 100 MG in DEXTROSE 5% 100 ML IV SCH ×2 (02:58→15:41)
[2019-06-26] MEDS: LACTATED RINGER'S 1,000 ML IV SCH (05:09)
[2019-06-26] MEDS: RASAGILINE 0.5 MG PO SCH (08:00)
[2019-06-26] MEDS: MONTELUKAST SODIUM 10 MG TABLET PO SCH (08:01)
[2019-06-26] MEDS: PANTOprazole 40 MG TAB PO SCH ×2 (08:01→20:47)
[2019-06-26] MEDS: GABAPENTIN 400 MG CAP PO SCH ×3 (08:01→20:46)
[2019-06-26] MEDS: CHOLECALCIFEROL 1,000 UNITS TAB PO SCH (08:01)
[2019-06-26] MEDS: CEROVITE ADV FORMULA TAB PO SCH (08:01)
[2019-06-26] MEDS: CARBIDOPA/LEVODOPA 25/100MG TAB PO SCH ×4 (08:02→19:03)
[2019-06-26] MEDS: DIPYRIDAMOLE/ASPIRIN CAP PO SCH ×2 (08:02→20:40)
[2019-06-26] MEDS: SUCRALFATE 1 GM/10 ML UDC PO SCH ×4 (08:03→20:41)
[2019-06-26] MEDS: DOCUSATE SODIUM/SENNA 50/8.6MG TAB PO SCH (08:03)
[2019-06-26] MEDS: LACTOBACILLUS ACIDOPHILUS (FLORANEX) TAB PO SCH ×2 (08:03→20:45)
--- NOTE | 2019-06-26 08:04 | Anesthesiology Progress Note ---
Date of Service June 26, 2019 Anesthesia Post Procedure Vital Signs Vital Signs: Temp Pulse Pulse Pulse Resp BP BP 06/26/19 06:58 36.7 C 66 18 107/61 06/26/19 04:00 36.7 C 75 22 116/64 06/25/19 22:02 36.5 C 71 16 100/64 06/25/19 16:00 79 06/25/19 15:57 36.6 C 95 H 16 96/52 L 06/25/19 12:35 36.4 C L 56 L 97 H 119/55 L 06/25/19 12:02 36.8 C 68 18 110/55 L 06/25/19 11:33 60 16 97/51 L 06/25/19 11:17 36.4 C L 60 19 98/57 L 06/25/19 11:15 36.4 C L 64 18 102/48 L 06/25/19 11:12 36.4 C L 62 92/48 L 06/25/19 10:45 36.4 C L 65 14 92/50 L 06/25/19 10:35 62 14 95/46 L 06/25/19 10:25 36.6 C 61 14 110/48 L Pulse Ox 06/26/19 06:58 95 06/26/19 04:00 98 06/25/19 22:02 96 06/25/19 16:00 06/25/19 15:57 95 06/25/19 12:35 97 06/25/19 12:02 100 06/25/19 11:33 100 06/25/19 11:17 100 06/25/19 11:15 99 06/25/19 11:12 98 06/25/19 10:45 99 06/25/19 10:35 100 06/25/19 10:25 100 Pain Intensity Abdomen: Pain Intensity: 1 Notes Mental Status: alert / awake / arousable Patient Amnestic to Procedure: Yes Nausea / Vomiting: adequately controlled Pain: adequately controlled Airway Patency, RR, SpO2: stable & adequate BP & HR: stable & adequate Hydration State: stable & adequate Anesthetic Complications: no major complications apparent and Pt Satisfied with anesthetic care
[2019-06-26] MEDS: NYSTATIN 500,000 UNIT TAB PO SCH ×2 (08:05→20:46)
[2019-06-26 08:09] LABS: Hematocrit (blood only) 30.1 % (37-47); Hemoglobin 10.3 g/dL (12.0-16.0); Mean Corpuscular Hgb Conc 34.2 g/dL (32-36); Mean Corpuscular Volume 89.3 fL (80-100); Mean Platelet Volume 12.9 fL (7.4-10.4); Platelet Count 69 K/uL (130-400); RDW Coefficient of Variation 14.5 % (11.5-14.5); RDW Standard Deviation 47.5 fL (36.4-46.3); Red Blood Count 3.37 M/uL (4.2-5.4)
[2019-06-26] MEDS: metroNIDAZOLE 0.75% TOPICAL GEL 45 GM TUBE TOP SCH ×2 (08:11→20:44)
[2019-06-26] MEDS: CLINDAMYCIN PHOSPHATE TOPICAL SOLUTION TOP SCH ×2 (08:11→20:44)
[2019-06-26 09:12] LABS: Albumin Level 2.2 gm/dl (3.4-5.0); BUN Creatinine Ratio 32.6 (10-20); Calcium 7.1 mg/dl (8.5-10.1); Est GFR (African American) 91.3; Est GFR (Non-African American) 78.8; Potassium 3.4 mmol/L (3.5-5.1)
[2019-06-26 09:15] LABS: ALC (manual) 3.25 K/uL (1.2-3.4); Albumin Globulin Ratio 0.9 (0.9-2); Basophils # (manual) 0.05 K/uL (0-0.2); Basophils % (manual) 0.9 %; Bilirubin,Total 0.7 mg/dl (0.2-1); Eosinophils # (manual) 0.09 K/uL (0-0.5); Eosinophils % (manual) 1.7 %; Giant Platelets 1+; Globulin 2.4 gm/dl (2.5-4.0); Lymphocytes # (manual) 1.44 K/uL (1.2-3.4); Lymphocytes % (manual) 26.1 %; Monocytes # (manual) 0.09 K/uL (0.11-0.59); Monocytes % (manual) 1.7 %; Neutrophils % (manual) 36.6 %; Reactive Lymphocytes # (manual) 1.82 K/uL; Total Protein 4.6 gm/dl (6.4-8.2)
--- NOTE | 2019-06-26 15:35 | Family Medicine Progress Note ---
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 Concern for anaplasmosis: Potential tick bite around 26Aug. Admit labs notable for CBC issues (as noted below) as well as mild AST elevation (improving). Negative for Lyme. 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 Erhlichiosis labs pending. In ED, given single doses of cefepime and ceftriaxone. 07Sep began doxycycline. There is concern that her esophageal ulcer is from compact pill esophagitis. She is currently on IV Doxy, will need to transition to PO doxy, but with concern of this causing bleeding from ulcer or continued pill esophagitis. Leukopenia, thrombocytopenia: Lowest WBC 1.68, improved to 3. No noted fevers. Lowest platelets 33, up to 55 s/p 07Sep one unit transfusion. Thought to be related to suspected tickborne illness as above. Anemia, GI bleed: Noted melanotic stools and drop in Hb as inpatient. Patient is relatively asymptomatic. [facility] cecetomy in 2006 for colon mass. Held her Aggrenox. Consulted GI (see related note) who recommended Protonix drip and discontinuation of minocycline as well as doxycycline. 08Sep upper endoscopy showed a nonbleeding esophageal ulcer which was treated. Recommended Protonix BID for four weeks and sucralfate QID for two weeks. - Given protonix IV shortage, placed on protonix 40 mg PO BID. Held home m inocycline. Kept doxy to treat the anaplasmosis. Recent fall, leg pain: 05Sep mechanical fall onto carpet without LOC or related pain. TSH normal. Low albumin. Admit CT head and pCXR were non-acute. BLE Doppler exams without evidence of DVT. UA is dirty specimen, with UCx pending (and UTI-related asymptomatic). Lab issues: - Acute kidney injury: Admit Cr 2.27 and BUN 82, resolved with IVF. Likely pre- renal. Monitoring. - Hypokalemia: Potassium down to 3.1. Replaced, monitoring. - Hypermagnesemia: Admit Mg 3.3. Given IVF, improving. Monitoring. - Elevated troponin: Admit troponin 0.047 with serial was rechecked near identical. EKG is NSR 90 with normal intervals and no acute ST-T wave changes. Never any chest pain. Monitoring. Ongoing medical issues: - Parkinson's disease: Continue home carbidopa levodopa, gabapentin, rasagiline. - Constipation: Continue senna and simethicone as needed. - Asthma, allergies: Continue home montelukast - Acne: Held home minocycline. - GERD: Continue home omeprazole and famotidine. - Osteoporosis: On Prolia at home. Code status: Per patient, she has pre-existing DNR/DNI wishes with associated living well. Diet: Resume normal diet. DVT prophy: SCDs. Held chemical prophylaxis due to concerns for GI bleed. PT/OT: Ordered. Dispo: Admitted to [facility] with telemetry. At baseline lives at home with her . (2) Leukopenia: (3) Thrombocytopenia: (4) Anemia: (5) GI bleed: (6) Fall: (7) Leg pain: (8) Acute kidney injury: (9) Hypokalemia: (10) Hypermagnesemia: (11) Elevated troponin: (12) Parkinson disease: (13) Constipation: (14) Asthma: (15) Acne: (16) GERD (gastroesophageal reflux disease): (17) Osteoporosis: Supervising Physician Co-Signing Physician Notes Attending attestation Pt seen and examined in concert with Dr. Zhou. In agreement with the documented findings as noted in the resident documentation with any exceptions or additions as noted here. Persistently fatigued, though improved from previous. On examination, S1/S2 nl RRR no MCG. CTAB. Abd NT/ND BS+ve Anemia in the setting of GIB w/ pill impaction on EGD - GI consultation appreciated - H/H stable. Holding antiplatelet agent. continue PPI therapy, avoid tetracycline tablets. Leukopenia and thrombocytosis in the setting of suspected Anaplasmosis - improving s/p platlet xfusion x 1. follow sendout labs. Continue IV doxy. Switch to PO liquid if possible. Else see resident documentation as noted. Subjective Patient was sitting upright at side of bed this morning eating breakfast without difficulty. She notes improvement in symptoms, noting generalized weakness has improved. She has not noted any bright red bloody or dark stools. No other signs of bleeding, easily bleeding gums, gross hematuria or nose bleeds. Review of Systems Review of Systems: All systems reviewed & are unremarkable except as noted in HPI & below Physical Exam Constitutional: WD/WN, vitals as above cooperative and comfortable Eyes: PERRL; no conjunctival abnormality ENMT: external ear and nose normal, oropharynx normal Neck: normal visual inspection and trachea midline Respiratory: normal respiratory effort, lungs clear to auscultation Cardiovascular: Rate/Rhythm: regular rate and regular rhythm Extremities: no pedal edema Gastrointestinal (Abdomen): Percussion/Palpation: abdomen soft; abdomen nontender, no guarding and abdomen not rigid Musculoskeletal: Head/Neck/Chest: normocephalic and head atraumatic Skin: no rashes, warm and dry Neurologic: moves all extremities and awake Psychiatric: A+Ox3, euthymic affect Results & Data Vital Signs (Past 12 Hours) Vital Signs Temp Pulse Resp BP BP Pulse Ox 06/26/19 15:16 36.5 C 63 18 132/63 98 06/26/19 14:08 100 06/26/19 06:58 36.7 C 66 18 107/61 95 06/26/19 04:00 36.7 C 75 22 116/64 98 PG Care Time/CCT Total # of Minutes Spent Total Time Spent with Patient: Total time spent is greater than 50% in coordination of care (as documented) at patient's floor/unit and/or counseling patient: Resident Activity Tracking Resident Involvement: Resident Care Provided Care Provided: Adult Hospital Medicine
[2019-06-26] MEDS: CARBIDOPA/LEVODOPA 50/200MG EXT REL TAB PO SCH (20:50)
[2019-06-27] MEDS: DOXYCYCLINE HYCLATE 100 MG in DEXTROSE 5% 100 ML IV SCH (02:33)
[2019-06-27] MEDS: CARBIDOPA/LEVODOPA 25/100MG TAB PO SCH ×2 (06:32→07:38)
[2019-06-27] MEDS: LACTOBACILLUS ACIDOPHILUS (FLORANEX) TAB PO SCH (07:38)
[2019-06-27] MEDS: PANTOprazole 40 MG TAB PO SCH (07:38)
[2019-06-27] MEDS: CEROVITE ADV FORMULA TAB PO SCH (07:38)
[2019-06-27] MEDS: SUCRALFATE 1 GM/10 ML UDC PO SCH (07:38)
[2019-06-27] MEDS: MONTELUKAST SODIUM 10 MG TABLET PO SCH (07:39)
[2019-06-27] MEDS: NYSTATIN 500,000 UNIT TAB PO SCH (07:39)
[2019-06-27] MEDS: CHOLECALCIFEROL 1,000 UNITS TAB PO SCH (07:39)
[2019-06-27] MEDS: DIPYRIDAMOLE/ASPIRIN CAP PO SCH (07:40)
[2019-06-27] MEDS: DOCUSATE SODIUM/SENNA 50/8.6MG TAB PO SCH (07:40)
[2019-06-27] MEDS: RASAGILINE 0.5 MG PO SCH (07:40)
[2019-06-27] MEDS: metroNIDAZOLE 0.75% TOPICAL GEL 45 GM TUBE TOP SCH (07:41)
[2019-06-27] MEDS: GABAPENTIN 400 MG CAP PO SCH (07:41)
[2019-06-27] MEDS: CLINDAMYCIN PHOSPHATE TOPICAL SOLUTION TOP SCH (07:42)
[2019-06-27 08:07] LABS: Hematocrit (blood only) 32.3 % (37-47); Hemoglobin 10.7 g/dL (12.0-16.0); Mean Corpuscular Hgb Conc 33.1 g/dL (32-36); Mean Corpuscular Volume 89.2 fL (80-100); Mean Platelet Volume 12.5 fL (7.4-10.4); Platelet Count 131 K/uL (130-400); RDW Coefficient of Variation 14.4 % (11.5-14.5); RDW Standard Deviation 47.7 fL (36.4-46.3); Red Blood Count 3.62 M/uL (4.2-5.4); White Blood Count 9.52 K/uL (4.8-10.8)
[2019-06-27 08:19] LABS: BUN Creatinine Ratio 21.8 (10-20); Calcium 8.2 mg/dl (8.5-10.1); Creatinine Clr Calc Pharmacy 41.3 ml/min; Est GFR (African American) 86.8; Est GFR (Non-African American) 74.9; Potassium 3.3 mmol/L (3.5-5.1)
--- NOTE | 2019-06-27 11:08 | Discharge Summary ---
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 Gastroneurology is consulted due to a question of melena which began yesterday. The patient reports that she had a large dark sticky stool prior to admission. She notes that she did have a small stool this morning which appeared to be improved from her standpoint. 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 He denies taking ibuprofen or other nonsteroidals. She denies having abdominal pain nausea vomiting fevers or chills. Patient denies having any hematemesis. Principal Diagnosis Anaplasmosis; weakness; esophageal ulcer Discharge Exam Constitutional WD/WN, vitals as above cooperative and comfortable Eyes PERRL; no conjunctival abnormality ENMT external ear and nose normal, oropharynx normal Neck normal visual inspection and trachea midline Respiratory normal respiratory effort, lungs clear to auscultation Cardiovascular Rate/Rhythm: regular rate and regular rhythm Extremities: no pedal edema Gastrointestinal (Abdomen) Percussion/Palpation: abdomen soft; abdomen nontender, no guarding and abdomen not rigid Musculoskeletal Head/Neck/Chest: normocephalic and head atraumatic Skin no rashes, warm and dry Neurologic moves all extremities and awake Psychiatric A+Ox3, euthymic affect Discharge Data Allergies Allergy/AdvReac Type Severity Reaction Status Date / Time propoxyphene Allergy Severe ITCHING,LLOYD Verified 06/24/19 00:01 H,DYSPNEA adhesive Allergy Intermediate ADHESIVE Verified 06/24/19 00:01 TAPE-DERMATITIS pseudoephedrine Allergy Intermediate FACIAL Verified 06/24/19 00:01 SWELLING, PHOTOSENSITIVITY bacitracin Allergy Mild REDNESS Verified 06/24/19 00:01 latex Allergy Mild BLISTER Verified 06/24/19 00:01 Consultations 06/23/19 21:57 ED Decision to Admit Stat 06/24/19 15:48 Consult Gastroenterology Routine Procedures Performed Operation Date: 06/25/19 13:00 Actual Procedures p Endoscopic Ultrasonography Upper(Not Applicable) - Glenn Mccullough Ordered Studies 06/23/19 20:32 CT head/brain wo con Stat - no acute findings CXR - no acute findings 06/23/19 22:02 US venous doppler LE BI Urgent - negative for DVT Hospital Course (1) Anaplasmosis: 84-year-old female was admitted on 24 June 2019 for weakness, fatigue, and recent fall. Her symptoms vastly improved over course of treatment. She notes she had to struggle to turn a quarter of the way over in bed, but on discharge was close to her baseline. She was very happy that she is feeling better. Concern for anaplasmosis: Potential tick bite around 26Aug. Admit labs notable for CBC issues (as noted below) as well as mild AST elevation (improving). Negative for Lyme. Intracytoplasmic neutrophilic inclusions were noted with pathology consult noting smear was consistent with Anaplasmosis. Erhlichiosis labs pending. In ED, given single doses of cefepime and ceftriaxone. 07Sep began doxycycline. Plan to complete a total of 7 day course. She will require 4 more days of Doxycycline BID. Since, she had complicated visit with esophageal ulcer. We were unable to provide Doxycycline pill as this has increased risk for compact pill esophageal damage. A prescription was given for liquid Doxycycline. She also was instructed to stop taking her Minocycline, as Tetracycline class has increased risk for esophageal damage. Her WBC returned to WNL at discharge as did her Platelets. She did receive one unit of platelets, but no blood transfusions. Her Hgb is slightly below baseline, but no active signs of bleeding on discharge. Leukopenia, thrombocytopenia: Lowest WBC 1.68, improved to 9.5. No noted fevers. Lowest platelets 33, up to 131 s/p 07Sep one unit transfusion. Thought to be related to suspected tickborne illness as above. Anemia, GI bleed: Noted melanotic stools and drop in Hb as inpatient. Patient is relatively asymptomatic. PSYCHIATRIC cecetomy in 2006 for colon mass. Held her Aggrenox. Consulted GI (see related note) who recommended Protonix drip and discontinuation of minocycline as well as doxycycline. 08Sep upper endoscopy showed a nonbleeding esophageal ulcer which was treated. Recommended PPI BID for four weeks (previously on Omeprazole 20mg, which was increased to 40mg BID) and sucralfate qACHS for two weeks. Recent fall, leg pain: 05Sep mechanical fall onto carpet without LOC or related pain. TSH normal. Low albumin. Admit CT head and pCXR were non-acute. BLE Doppler exams without evidence of DVT. UA is dirty specimen, with UCx pending (and UTI-related asymptomatic). Lab issues: - Acute kidney injury: Admit Cr 2.27 and BUN 82, resolved with IVF. Likely pre- renal. Resolve with return to baseline. - Hypokalemia: Potassium down to 3.1. Replaced as needed. - Hypermagnesemia: Admit Mg 3.3. Given IVF, improving. Monitoring. Had no further issues - Elevated troponin: Admit troponin 0.047 with serial was rechecked near identical. EKG is NSR 90 with normal intervals and no acute ST-T wave changes. Never any chest pain. Monitoring. Ongoing medical issues: - Parkinson's disease: Continue home carbidopa levodopa, gabapentin, rasagiline. - Constipation: Continue senna and simethicone as needed. - Asthma, allergies: Continue home montelukast - Acne: Held home minocycline. - GERD: Continue home omeprazole and famotidine. - Osteoporosis: On Prolia at home. Code status: Per patient, she has pre-existing DNR/DNI wishes with associated living well. Diet: Resume normal diet. DVT prophy: SCDs. Held chemical prophylaxis due to concerns for GI bleed. PT/OT: Ordered. Dispo: Admitted to [facility] with telemetry. At baseline lives at home with her . Discharged home on 06/27/2019 Will require outpatient follow up with Dr. Poncho CHEUNG. Has appointment with PCP tomorrow. (2) Leukopenia: (3) Thrombocytopenia: (4) Anemia: (5) GI bleed: (6) Fall: (7) Leg pain: (8) Acute kidney injury: (9) Hypokalemia: (10) Hypermagnesemia: (11) Elevated troponin: (12) Parkinson disease: (13) Constipation: (14) Asthma: (15) Acne: (16) GERD (gastroesophageal reflux disease): (17) Osteoporosis: Total Time Total Time Spent Total Time Spent (In Minutes): 45 Total Time Includes: Examination of the Patient, Discharge Planning, Medication Reconciliation and Communication With Other Providers Discharge Plan Discharge Items Patient Disposition: Home - Self-Care Reason For Visit: WEAKNESS, FATIGUE Discharge Diagnosis: Weakness; Anaplasmosis; Esophageal Ulcer Discharge Goals: Therapeutic intervention Activity: Resume your previous activity Non-emergency contact: Primary Care Provider Call non-emergency contact if: you have any medication questions and your symptoms worsen Follow-up/Referrals: Arsen Aguilar MD [Primary Care Provider] - 06/28/19 3:30 pm (Please, follow up with Dr. Aguilar on WednesdayJune 28 at 3:30. *If that is too soon for you, his nurse said you could wait to see him on WednesdayJuly 03 at 2:30 pm. If you have any questions, call the office at [phone].) Diet: Regular Addtl Provider Instructions: You were diagnosed with a tick illness called Anaplasmosis. This can be the cause of your low platelet count, low white blood cell count. Your white blood cell count has returned to normal with treatment. You did receive 1 unit of platelets while in the hospital to improve your low platelet count. Your platelet count has returned to normal. Anaplasmosis * treated with Doxcycline IV while in hospital. * You will need to continue 4 more days of Doxcycline liquid medicine. This has been called into your pharmacy. Please take as directed on bottle. This medication is taken twice per day, once in the AM and once int he PM. Also, you were found to have an esophageal ulcer which caused a minor bleed. There was no active bleeding when GI performed EGD. During the EGD, there were able to cauterize the area to prevent further bleeding. We believe the cause of this ulcer was from a pill getting stuck and causing irritation. Most notorious culprits are drugs in the Tetracycline class. Therefore, please discontinue/stop taking your Minocycline which you use for acne. This is also why we are giving you Liquid Doxycycline as this medication is in the Tetracycline class which can cause the pill to get stuck in your esophagus. Per GI physician recommendations, you will need to continue taking two medications for this. Carafate 1gm (pill) with meals and before bedtime. This medication provides a protective coat to the upper digestive tract from stomach acid production. You will take this medication for 2 weeks to allow your esophagus ulcer to heal. Then you can stop this medication. You are on omeprazole at home which you take at night. This is a proton pump inhibitor, which is used to prevent acid production in your stomach to help protect your esophageal ulcer while it heals. * The new prescription is for a 40mg dose, you were previously on 20mg. This medication has been called into your pharmacy. * You will need to take this medication twice per day. One pill (40mg) in the AM and one pill (40mg) in the PM. You will take this twice a day, once in the morning and once in the evening. You will take it twice a day for 4 weeks. Then, return to previous once a day regimen. You will need to follow up with Dr. Isaac with [facility]. Please call for appointment. We will ensure Dr. Bell has a copy of your hospital record to ensure your course of care is thoroughly communicated them them. It was a pleasure taking care of you. [facility] [place]! Prescriptions: New sucralfate 1 gram tablet 1 gm PO ACHS 14 Days Qty: 56 RF: 0 omeprazole 40 mg capsule,delayed release(DR/EC) 40 mg PO BID 30 Days Qty: 60 RF: 0 Continued gabapentin 400 mg capsule 400 mg PO TID 30 Days Qty: 90 RF: 5 melatonin 5 mg tablet 15 mg PO HS RF: 0 coenzyme Q10 200 mg capsule 200 mg PO QAM RF: 0 mometasone 0.1 % cream 1 applic topical DIRECTED PRN (Reason: Skin Irritation) Qty: 1 RF: 0 docusate sodium 100 mg tablet 100 mg PO BID PRN (Reason: Constipation) RF: 0 acyclovir 200 mg capsule 200 mg PO QAM RF: 0 montelukast 10 mg tablet 10 mg PO QAM RF: 0 acetaminophen 500 mg tablet 500 mg PO DIRECTED PRN (Reason: Pain) RF: 0 sennosides-docusate sodium 8.6-50 mg tablet 3 tab PO QAM RF: 0 chlorpheniramine maleate 4 mg tablet 4 mg PO DAILY PRN (Reason: Allergy Symptoms) RF: 0 Prolia 60 mg/mL syringe 60 mg subcut .Q 6 MONTHS RF: 0 Complete Multivitamin tablet 1 tab PO DAILY RF: 0 metronidazole 0.75 % gel 1 applic topical BID Qty: 1 RF: 0 famotidine 40 mg tablet 40 mg PO QAM RF: 0 clindamycin phosphate 1 % solution 1 applic topical BID Qty: 1 RF: 0 glycerin (child) 1 supp WI DAILY PRN (Reason: Constipation) RF: 0 albuterol sulfate 90 mcg/actuation HFA aerosol inhaler 1 - 2 puff inhalation DIRECTED PRN (Reason: Shortness Of Breath Or Wheezing) RF: 0 conjugated estrogens 0.625 mg/gram cream 1 applic PV 2XWK Qty: 1 RF: 0 aspirin-dipyridamole 25-200 mg capsule, ER multiphase 12 hr 1 cap PO BID RF: 0 carbidopa-levodopa 25-100 mg tablet 2 tab PO QID Qty: 240 RF: 0 carbidopa-levodopa 50-200 mg tablet extended release 1 tab PO HS Qty: 30 RF: 0 rasagiline 0.5 mg tablet 0.5 mg PO DAILY Qty: 30 RF: 0 cholecalciferol (vitamin D3) [Vitamin D3] 2,000 unit Capsule 2,000 unit PO DAILY RF: 0 cholecalciferol (vitamin D3) [Vitamin D3] 5,000 unit Tablet 5,000 unit PO DAILY RF: 0 nystatin 500,000 unit Tablet 500,000 unit PO BID RF: 0 acyclovir 5 % Ointment 1 applic TOPICAL DIRECTED PRN (Reason: NEEDED) RF: 0 Sarna Sensitive 1 % Lotion 1 applic TOPICAL BID PRN (Reason: Skin Irritation) RF: 0 glutamine (bulk) [L-Glutamine] Powder 1 ea MISCELLANEOUS QPM RF: 0 simethicone 80 mg Tablet,Chewable 80 mg PO DIRECTED PRN (Reason: GAS RELIEF) RF: 0 oregano oil 1,500 mg Capsule 1,500 mg PO QAM RF: 0 An[place]ado Video Colon Health 1.5 billion cell Capsule 1 cap PO .2 HRS POST NYSTATIN RF: 0 lidocaine HCl 2 % Cream 1 applic TOPICAL BID PRN (Reason: NEEDED) RF: 0 Preparation H 0.25-14-74.9 % Ointment 1 applic WI DIRECTED PRN (Reason: Hemorrhoids) RF: 0 Zuleima-Blockton Extra Strength 500-1,985-1,000 mg Tablet, Effervescent 1 ea PO DIRECTED PRN (Reason: Indigestion) RF: 0 Mg L-Theronate 450 mg PO HS RF: 0 L-Bucqvg-H-Cysteine 600 mg PO BID RF: 0 Reishi 376 mg PO BID RF: 0 Discontinued omeprazole 20 mg capsule,delayed release(DR/EC) 20 mg PO QPM Qty: 30 RF: 0 minocycline 50 mg capsule 50 mg PO DAILY PRN (Reason: NEEDED) Qty: 30 RF: 0 Stand-Alone Forms: [facility] Discharge Orders: Discharge Order (Routine); Ordered 06/27/19 Ordered By: Amadeo Zhou Admission Data Admit Date/Time: 06/24/19 00:41 Attending Provider: Herman Yost Admit Provider: Tamara Gomez Primary Care Provider: Arsen Aguilar Other Providers: Kenny Thomson ; Edward Isaac Service: Telemetry Medical Other Interventions: Discharge Summary Assessment (RN) Last Done: 06/27/19 11:17 DC Date/Time DO NOT enter until pt leaves facility: 06/27/19 12:15 Supervising Physician Co-Signing Physician Notes Attending attestation Pt seen and examined in concert with Dr. Zhou. In agreement with the documented findings as noted in the resident documentation with any exceptions or additions as noted here. Significant improvement in overall fatigue and function from admission. Anemia 2/2 GI bleed - PPI BID x 4 weeks. Holding aggrenox at present. Anaplasmosis - confirmatory studies pending. Complete course of treatment with liquid doxy, as concern for pill impaction noted by GI on endoscopy. Leukopenia, thrombocytopenia - ?related to anaplasmosis, improving, would warrant recheck in outpatient Else see resident documentation as noted. Resident Activity Tracking Resident Involvement: Resident Care Provided Care Provided: Adult Hospital Medicine
[2019-06-28 13:30] LABS: Ehrlichia chaff DNA Bld Not Detected (Not Detected)
[2019-06-29 19:20] LABS: Ehrlichia chaff IgG Ab <1:64 (<1:64); Ehrlichia chaff IgM Ab <1:20 (<1:20)
--- NOTE | 2019-07-03 11:05 | Coding Query ---
CODING QUERY To promote full compliance with coding requirements relating to patient care, provider participation is requested in all cases of configuration analyst uncertainty. Please assist us with the question(s) below: Coding Question(s): There is documentation of elevated troponin with the H&P documenting likely Type 2 NSTEMI, supply demand mismatch and also documented on H&P Addendum as likely due to Type 2 Ischemia and the Discharge Summary documents, "Elevated troponin: Admit troponin 0.047 with serial was rechecked near identical. EKG is NSR 90 with normal intervals and no acute ST-T wave changes. Never any chest pain. Monitoring.". Please clarify below, in your clinical opinion, regarding the Elevated Troponin. ( ) Likely Type 2 [place] ( ) Likely NSTEMI ( ) Likely Demand Ischemia ( ) Elevated Troponin only (x ) Other: Please Specify elevated in the setting of pericarditis Physician's Response(s): Thank you Clara Espinal Principal Diagnosis: "that condition established after study, to be chiefly responsible for occasioning the admission of the patient to the hospital for care." Co-Existing Principal Diagnosis: "when two or more diagnoses equally meet the criteria for principal diagnosis as determined by the circumstances of admission, diagnostic work up, and/or therapy provided, and the Alphabetic Index, Tabular List, or another coding guideline does not provide sequencing direction, any one of the diagnoses may be sequenced first." "When the physician has documented what appears to be a current diagnosis in the body of the record, but has not included the diagnosis in the final diagnostic statement, the physician should be asked whether the diagnosis should be added." (Source Coding [facility] 2 QTR90. p3-4) [facility]
== END 2019-06-27 12:15 | disposition home or self-care (01) | DRG 867 ==
LOC: ED 20:15 → 2W 06-24 00:41 → SUATTDRO 06-24 00:41 → 2W 06-24 01:53

== ENCOUNTER 2023-02-01 11:39 | Observation (INO) ==
[2023-02-01] MEDS ORDERED: ONDANSETRON INJ 2 MG/ML 2 ML VIAL IV STA (11:55)
[2023-02-01] MEDS ORDERED: fentaNYL citrate PF 100 MCG/2 ML VIAL IV PRN (11:55)
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
[2023-02-01 13:06] LABS: Basophils # (auto) 0.03 K/uL (0-0.2); Basophils % (auto) 0.3 %; Eosinophils # (auto) 0.05 K/uL (0-0.50); Eosinophils % (auto) 0.5 %; Hematocrit (blood only) 40.4 % (37.0-47.0); Hemoglobin 13.5 g/dl (12.0-16.0); Immature Granulocytes # (auto) 0.04 K/uL (0.01-0.20); Immature Granulocytes % (auto) 0.4 %; Lymphocytes # (auto) 0.84 K/uL (1.2-3.4); Lymphocytes % (auto) 7.7 %; Mean Corpuscular Hemoglobin 30.4 pg (25.0-34.0); Mean Corpuscular Hgb Conc 33.4 g/dL (32.0-36.0); Mean Platelet Volume 11.2 fL (9.4-12.4); Monocytes # (auto) 0.75 K/uL (0.11-0.59); Monocytes % (auto) 6.9 %; Neutrophils # (auto) 9.15 K/uL (1.40-6.50); Neutrophils % (auto) 84.2 %; Platelet Count 252 K/uL (130-400); RDW Coefficient of Variation 13.3 % (11.5-14.5); RDW Standard Deviation 44.2 fL (36.4-46.3); Red Blood Count 4.44 M/uL (4.20-5.40); White Blood Count 10.86 K/ul (4.8-10.8)
--- NOTE | 2023-02-01 13:17 | XRay Report ---
XR chest 1V portable CLINICAL HISTORY: trauma COMPARISON STUDY: Chest radiograph January 29, 2023. FINDINGS: Lung volumes are normal. Linear left basilar densities favor atelectasis. There is no pneum othorax or pleural effusion. Cardiac size is stable. Mediastinal contours are normal. There is no vik dence for pulmonary edema. IMPRESSION: No acute cardiopulmonary findings. ACT 112: Negative or not required by law. Electronically signed by: Miguel David M.D. 02/01/2023 1:16 PM
[2023-02-01 13:22] LABS: Albumin Globulin Ratio 1.2 (0.9-2); Albumin Level 3.6 gm/dl (3.4-5.0); BUN Creatinine Ratio 38.4 (10-20); Bilirubin,Total 0.9 mg/dl (0.2-1.0); Calcium 9.1 mg/dl (8.6-10.3); Creatinine Clr Calc Pharmacy 41.7 ml/min; Est GFR (African American) 86.4 ml/min; Est GFR (Non-African American) 74.6 ml/min; Potassium 3.7 mmol/L (3.5-5.1); Total Protein 6.6 gm/dl (6.0-8.3)
[2023-02-01 13:28] LABS: Troponin I High Sensitivity 10.5 pg/ml (0-14)
[2023-02-01 13:37] LABS: Partial Thromboplastin Time 27.4 Seconds (21.0-31.0); Prothrombin Time 10.8 Seconds (9.0-12.0)
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
[2023-02-01] MEDS ORDERED: SODIUM CHLORIDE 0.9% 500 ML IV ONE (15:00)
[2023-02-01 15:26] LABS: Appearance Urine Clear (Clear); Bacteria Urine Automated Negative (Negative); Bilirubin Urine Negative (Negative); Blood Urine Negative (Negative); Color Urine Dark Yellow; Epithelial Cell Urine Auto 20-30 /lpf (0-5); Glucose Urine UA Negative (Negative); Ketones Urine 2+ (Negative); Leukocyte Esterase Urine Negative (Negative); Nitrite Urine Negative (Negative); Protein Urine Trace (Negative); Specific Gravity Urine 1.035 (1.000-1.030); Urobilinogen Urine Negative (Negative); pH Urine 5.5 (4.5-7.5)
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
[2023-02-01] MEDS ORDERED: OPTIRAY 320 500ml IV ONE (16:39)
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
--- NOTE | 2023-02-01 17:50 | Electrocardiogram Report ---
Test Reason : Blood Pressure : / mmHG Vent. Rate : 064 BPM Atrial Rate : 064 BPM P-R Int : 198 ms QRS Dur : 078 ms QT Int : 438 ms P-R-T Axes : 069 045 052 degrees QTc Int : 451 ms Normal sinus rhythm Normal ECG When compared with ECG of 29-JAN-2023 17:09, NH interval has decreased Confirmed by Fabian Shahid ([id number]) on 02/01/2023 5:50:12 PM Referred By: Confirmed By:Edinson Shahid
[2023-02-01] MEDS ORDERED: CARBIDOPA/LEVODOPA 25/100MG TAB PO STA (17:56)
[2023-02-01] MEDS ORDERED: SIMETHICONE 80 MG CHEW PO PRN (19:46)
[2023-02-01] MEDS ORDERED: SUCRALFATE 1 GM/10 ML UDC PO PRN (19:46)
[2023-02-01] MEDS ORDERED: DIGESTIVE ENZYMES PO SCH (21:00)
[2023-02-01] MEDS: GABAPENTIN 600 MG TAB PO SCH (22:04)
[2023-02-01] MEDS: DIPYRIDAMOLE/ASPIRIN CAP PO SCH (22:05)
[2023-02-01] MEDS: CARBIDOPA/LEVODOPA 25/100MG TAB PO SCH (22:05)
[2023-02-01] MEDS: POTASSIUM CHLORIDE 10 MEQ TABCR PO SCH (22:05)
[2023-02-01] MEDS: DOCUSATE SODIUM 100 MG CAP PO SCH (22:06)
[2023-02-01] MEDS: CARBIDOPA/LEVODOPA 50/200MG EXT REL TAB PO SCH (22:07)
[2023-02-02] MEDS: HYDROmorphone INJ 0.5 MG/0.5 ML SYR IV PRN (04:16)
[2023-02-02] MEDS: GABAPENTIN 600 MG TAB PO SCH ×3 (08:21→19:54)
[2023-02-02] MEDS: PANTOprazole 40 MG TAB PO SCH (08:21)
[2023-02-02] MEDS: CHOLECALCIFEROL 1,000 UNITS 25 MCG TAB PO SCH (08:21)
[2023-02-02] MEDS: POTASSIUM CHLORIDE 10 MEQ TABCR PO SCH ×2 (08:21→19:54)
[2023-02-02] MEDS: DOCUSATE SODIUM 100 MG CAP PO SCH ×2 (08:21→19:55)
[2023-02-02] MEDS: DIPYRIDAMOLE/ASPIRIN CAP PO SCH ×2 (08:21→19:55)
[2023-02-02] MEDS: CHOLECALCIFEROL 5,000 UNITS 125 MCG TAB PO SCH (08:22)
[2023-02-02] MEDS: CARBIDOPA/LEVODOPA 25/100MG TAB PO SCH ×4 (08:22→19:56)
[2023-02-02] MEDS: FLUTICASONE/VILANTEROL 200/25MCG 14 PUFFS/INHALER INH SCH (08:24)
[2023-02-02] MEDS: ACETAMINOPHEN 500 MG TAB PO PRN ×3 (08:32→20:12)
[2023-02-02] MEDS: MONTELUKAST SODIUM 10 MG TABLET PO SCH (09:27)
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
[2023-02-02] MEDS: CARBIDOPA/LEVODOPA 50/200MG EXT REL TAB PO SCH (19:56)
[2023-02-03] MEDS: HYDROmorphone INJ 0.5 MG/0.5 ML SYR IV PRN (03:22)
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
[2023-02-03] MEDS: CARBIDOPA/LEVODOPA 25/100MG TAB PO SCH ×2 (09:02→12:57)
[2023-02-03] MEDS: POTASSIUM CHLORIDE 10 MEQ TABCR PO SCH (09:02)
[2023-02-03] MEDS: PANTOprazole 40 MG TAB PO SCH (09:02)
[2023-02-03] MEDS: GABAPENTIN 600 MG TAB PO SCH ×2 (09:03→12:57)
[2023-02-03] MEDS: FLUTICASONE/VILANTEROL 200/25MCG 14 PUFFS/INHALER INH SCH (09:03)
[2023-02-03] MEDS: DIPYRIDAMOLE/ASPIRIN CAP PO SCH (09:03)
[2023-02-03] MEDS: DOCUSATE SODIUM 100 MG CAP PO SCH (09:03)
[2023-02-03] MEDS: MONTELUKAST SODIUM 10 MG TABLET PO SCH (09:04)
[2023-02-03] MEDS: CHOLECALCIFEROL 1,000 UNITS 25 MCG TAB PO SCH (09:04)
[2023-02-03] MEDS: CHOLECALCIFEROL 5,000 UNITS 125 MCG TAB PO SCH (09:04)
--- NOTE | 2023-02-03 11:52 | XRay Report ---
XR wrist RT 2V CLINICAL HISTORY: Right wrist pain. Post splinting. COMPARISON STUDY: Right wrist 01/29/2023. FINDINGS: Overlying splint material obscures fine bony detail. Extensive soft tissue swelling within the dorsum of the hand just beyond the splint material. No significant change in alignment of the mil d displaced distal right radius fracture. The nondisplaced distal ulnar fracture is also similar to t he prior study. No additional fractures identified. IMPRESSION: 1. Extensive soft tissue swelling within the dorsum of the hand just beyond the splint material. 2. No significant change in alignment of the mild displaced distal right radius fracture. The nondisp laced distal ulnar fracture is also similar to the prior study. ACT 112: Negative or not required by law. Electronically signed by: Cj Brooks M.D. 02/03/2023 11:50 AM
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
--- NOTE | 2023-02-03 16:49 | Progress Notes ---
DATE OF SERVICE: 02/03/2023. The patient was seen in the hospital this morning at about 8:00 a.m. She was admitted back to the [facility] because of a problem with her neck. She was supposed to follow up with me in the office lauren richey regarding her hand. She reports some tingling and numbness in her hand over the past day or so. Also, notes swelling. Intact sensation to the little finger. Slight tingling and numbness in the index finger. Normal sen sation on the dorsum of the thumb. She has 4+5-/5 strength with palmar abduction of the thumb, thumb extension and finger abduction. There is moderate swelling of her fingers and she has arthritic def ormities present throughout. Hand is warm with capillary refill less than 2 seconds. Splint is well fitting and I loosened it a tiny bit. Radiographs were ordered. Images show degenerative change. There is a fracture of the distal radius and ulna with a minimal translocation and displacement. There does not appear to be significant ang ulation of the radius fracture. The ulna fracture is not displaced. I have given her some exercises to do to wiggle her fingers. Some of the numbness, could be due to s welling. We will need to monitor and if this gets worse, we will need to evaluate further. Exercise fingers every 30 minutes. Follow up with me in 5-7 days as an outpatient. Continue to elevate, ice and wear sling. Job ID: [id number]
== END 2023-02-03 15:57 ==
LOC: 2S 11:39 → ED 11:39 → SUATTDRO 17:54 → 2S 19:48